=== PATIENT | male | born 1945 | race Caucasian/White ===

== ENCOUNTER 2019-01-03 12:34 | Outpatient (CLI) | payer MEDICARE, BC ==
[2019-01-03 13:28] LABS: #Basophils 0.1 thou/uL (0.0-0.2); #Eosinphils 0.5 thou/uL (0.0-0.7); #Lymphocytes 2.2 thou/uL (1.20-3.40); #Monocytes 0.6 thou/uL (0.11-0.59); #Neutrophils 5.2 thou/uL (1.40-6.50); %Basophils 0.7 % (0.0-1.0); %Eosinophils 6.3 % (0.0-10.0); %Lymphocytes 25.4 % (21.0-51.0); %Monocytes 7.4 % (0.0-10.0); %Neutrophils 60.2 % (42.0-75.0); Hemoglobin 14.7 g/dL (14.0-18.0); Mean Corpuscular HGB CONC 33.6 g/dL (32.0-36.0); Mean Corpuscular Hemoglobin 30.6 pg (27.0-31.0); Mean Corpuscular Volume 91.1 fL (78.0-98.0); Mean Platelet Volume 6.5 fL (7.4-10.4); Platelet Count 378 thou/uL (130-400); RBC Distribution Width 12.3 % (11.5-14.5); White Blood Cell (WBC) Count 8.6 thou/uL (4.8-10.8)
[2019-01-03 13:51] LABS: ALT (SGPT) 20 U/L (8-55); AST (SGOT) 18 U/L (5-34); Albumin 4.2 g/dL (3.4-4.8); Alkaline Phosphatase 86 U/L (40-150); Anion Gap 11 mmol/L (10-20); BUN (Urea Nitrogen) 15 mg/dL (8.4-25.7); Bilirubin, Total 0.6 mg/dL (0.2-1.2); Calc. Creatinine Clearance 0 mL/min (70-130); Calcium 9.7 mg/dL (7.8-10.44); Carbon Dioxide 27 mmol/L (23-31); Cardiac Risk 3.6 (Less than 4.5); Chloride 104 mmol/L (98-107); Cholesterol 132 mg/dl (< 200 Desired); Estimated GFR-MDRD 88; Globulin 3.2 g/dL (2.4-3.5); Glucose 98 mg/dL (83-110); HDL Cholesterol 37 mg/dL (>60 Neg Risk); LDL Cholesterol, Calculated 76 mg/dL; Potassium 4.1 mmol/L (3.5-5.1); Protein, Total 7.4 g/dL (5.8-8.1); Sodium 138 mmol/L (136-145); Triglycerides 94 mg/dL (Less than 150)
--- NOTE | 2019-01-03 14:13 | RAD ---
EXAM: Chest PA and lateral: HISTORY: CCL COMPARISON: none FINDINGS: Lung dumont are clear. Vascular markings are normal. Heart and mediastinum appear unremarkable. Vascularity is normal. Osseous structures are unremarkable. IMPRESSION: Unremarkable chest
--- NOTE | 2019-01-08 14:52 | EKG ---
Test Reason : Blood Pressure : / mmHG Vent. Rate : 057 BPM Atrial Rate : 057 BPM P-R Int : 162 ms QRS Dur : 086 ms QT Int : 402 ms P-R-T Axes : 046 041 030 degrees QTc Int : 391 ms Sinus bradycardia Possible Anterior infarct (cited on or before 16-MAR-2009) Abnormal ECG Confirmed by SEBASTIÁN BARON ([id number]) on 01/08/2019 2:52:18 PM Referred By: SEAMUS Confirmed By:SEBASTIÁN BARON
== END 2019-01-03 12:35 | disposition home or self-care (01) ==
LOC: LABBT 12:34
PROVIDERS: ATTEND Internal Medicine Cardiovascular Disease
DX: Z01.818 Encounter for other preprocedural examination (principal)
CPT/HCPCS: 71046; 80053; 80061; 85025; 93005; 93010

== ENCOUNTER 2019-01-09 05:58 | Observation (INO) | payer MEDICARE, BC ==
[2019-01-03 13:32] VITALS: BMI 36.8
[2019-01-09] MEDS ORDERED: Heparin 10,000 UNITS/1 ML VIAL ONE (06:28)
[2019-01-09] MEDS ORDERED: Fentanyl 100 MCG/2 ML VIAL ONE (07:03)
[2019-01-09] MEDS ORDERED: Midazolam HCl 2 mg/2 ml Vial ONE (07:03)
[2019-01-09] MEDS ORDERED: Bivalirudin 250 MG VIAL ONE (07:20)
[2019-01-09] MEDS ORDERED: Nitroglycerin 100MG/250ML BOT 250 ML ONE (07:20)
[2019-01-09] MEDS ORDERED: Clopidogrel Bisulfate 300 MG TAB ONE (07:58)
[2019-01-09] MEDS ORDERED: hydrALAZINE 20 MG/ML VIAL ONE (08:05)
[2019-01-09] MEDS ORDERED: Morphine 2 MG/ML SYRINGE SLOW IVP PRN (08:12)
[2019-01-09] MEDS ORDERED: Morphine 4 MG/ML VIAL SLOW IVP PRN (08:12)
[2019-01-09] MEDS ORDERED: Nitroglycerin 0.4 MG TAB (25 Tab Bottle) SL PRN (08:12)
[2019-01-09] MEDS ORDERED: Lorazepam 1 MG TAB PO PRN (08:14)
[2019-01-09] MEDS ORDERED: Sodium Chloride 0.9% 1,000 ML IV SCH (08:15)
[2019-01-09] MEDS ORDERED: Iopamidol 370 76% 100 ML VIAL ONE (09:52)
[2019-01-09] MEDS ORDERED: Iopamidol 370 76% 50 ML VIAL FS ONE (09:52)
[2019-01-09] MEDS: Aspirin Chewable 81 MG TAB PO SCH (14:27)
--- NOTE | 2019-01-09 19:08 | EKG ---
Test Reason : POST STENT - LAD Blood Pressure : / mmHG Vent. Rate : 057 BPM Atrial Rate : 057 BPM P-R Int : 172 ms QRS Dur : 096 ms QT Int : 412 ms P-R-T Axes : 045 046 053 degrees QTc Int : 401 ms Sinus bradycardia Nonspecific T wave abnormality Abnormal ECG When compared with ECG of 03-JAN-2019 13:12, Borderline criteria for Anterior infarct are no longer Present Nonspecific T wave abnormality now evident in Lateral leads Confirmed by DR. Marti COTA ([id number]) on 01/09/2019 7:08:25 PM Referred By: SEAMUS Confirmed By:DR. Marti COTA
[2019-01-09] MEDS ORDERED: Atorvastatin Calcium 40 MG TAB PO SCH (21:00)
[2019-01-10 06:11] LABS: #Eosinphils 0.6 thou/uL (0.0-0.7); #Lymphocytes 2.4 thou/uL (1.20-3.40); #Monocytes 0.8 thou/uL (0.11-0.59); %Basophils 0.4 % (0.0-1.0); %Eosinophils 6.3 % (0.0-10.0); %Lymphocytes 23.8 % (21.0-51.0); %Monocytes 8.2 % (0.0-10.0); %Neutrophils 61.2 % (42.0-75.0); Hemoglobin 14.6 g/dL (14.0-18.0); Mean Corpuscular HGB CONC 33.8 g/dL (32.0-36.0); Mean Corpuscular Hemoglobin 30.7 pg (27.0-31.0); Mean Corpuscular Volume 90.8 fL (78.0-98.0); Mean Platelet Volume 6.3 fL (7.4-10.4); Platelet Count 364 thou/uL (130-400); RBC Distribution Width 12.4 % (11.5-14.5); Red Blood Cell (RBC) Count 4.77 mill/uL (4.70-6.10); White Blood Cell (WBC) Count 9.9 thou/uL (4.8-10.8)
[2019-01-10 06:23] LABS: ALT (SGPT) 20 U/L (8-55); AST (SGOT) 20 U/L (5-34); Alkaline Phosphatase 89 U/L (40-150); Anion Gap 12 mmol/L (10-20); BUN (Urea Nitrogen) 14 mg/dL (8.4-25.7); Bilirubin, Total 0.7 mg/dL (0.2-1.2); Calc. Creatinine Clearance 114 mL/min (70-130); Calcium 9.4 mg/dL (7.8-10.44); Carbon Dioxide 26 mmol/L (23-31); Chloride 104 mmol/L (98-107); Estimated GFR-MDRD 81; Glucose 90 mg/dL (83-110); Potassium 4.2 mmol/L (3.5-5.1); Sodium 138 mmol/L (136-145)
[2019-01-10 08:20] VITALS: BP 173/81; TEMP 97.3
[2019-01-10] MEDS: Aspirin Chewable 81 MG TAB PO SCH (08:33)
[2019-01-10] MEDS ORDERED: Clopidogrel Bisulfate 75 MG TAB PO SCH (09:00)
[2019-01-10] MEDS ORDERED: Lisinopril 10 MG TAB PO SCH (09:00)
--- NOTE | 2019-01-11 10:00 | EKG ---
Test Reason : Blood Pressure : / mmHG Vent. Rate : 057 BPM Atrial Rate : 057 BPM P-R Int : 164 ms QRS Dur : 098 ms QT Int : 430 ms P-R-T Axes : 048 045 067 degrees QTc Int : 418 ms Sinus bradycardia Otherwise normal ECG When compared with ECG of 09-JAN-2019 08:32, No significant change was found Confirmed by DR. Marti CTOA ([id number]) on 01/11/2019 10:00:36 AM Referred By: SEAMUS Confirmed By:DR. Marti COTA
--- NOTE | 2019-01-13 10:14 | DIS ---
DATE OF ADMISSION: 01/09/2019 DATE OF DISCHARGE: 01/10/2019 DISCHARGE DIAGNOSES: 1. One Vessel coronary artery disease (left anterior descending artery). 2. Drug-eluting stent placement in the mid left anterior descending artery. 3. Hypercholesterolemia. 4. Hypertension. 5. Positive family history. DISCHARGE DISPOSITION: The patient will see Dr. Brown in 2 to 3 weeks for followup of his hypertension. He will see Dr. Encarnacion in 3 months for followup with comprehensive metabolic panel, fasting lipid profile. DISCHARGE MEDICATIONS: 1. Aspirin 81 mg daily. 2. Plavix 75 mg daily x1 year (discussed the importance of this with the patient ). 3. Atorvastatin 40 mg at bedtime. 4. Lisinopril 10 mg q.a.m. 5. Metoprolol 50 mg q.a.m. 6. Lorazepam 1 mg q.12 hours p.r.n. 7. Sertraline 100 mg at bedtime. HOSPITAL COURSE: Dr. Gardiner had an office cardiac PET scan, which revealed distal inferior and apical ischemia. 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 He underwent cardiac catheterization. There was normal left ventricular function with ejection fraction of 50% to 55%. There was a 20% proximal LAD and a 90% mid LAD, but otherwise no significant stenosis. He underwent placement of Synergy 3.5 x 16 mm stent in the mid LAD post dilated with a 4.0 mm balloon in the mid portion of the stent with excellent result. This was a drug-eluting stent. He was observed overnight and then discharged. His LDL had fallen from 140 to 76. He has been on the atorvastatin for 3 weeks. We discussed further dietary indiscretions, and hopefully, the LDL will fall below 70. He was observed overnight and his blood pressure systolics were all in the 160s to 170s. He did have a heart rate of 49 per minute during the night and so metoprolol was not further increased, instead lisinopril 10 mg daily was added. He should follow up with Dr. Brown in 2 to 3 weeks for further adjustments in his blood pressure medication. He will keep a blood pressure log at home and take that to the appointment with Dr. Brown. Job ID: [id number] [facility]
== END 2019-01-10 12:31 | disposition home or self-care (01) ==
LOC: CCL 05:58 → 2SW 08:30
PROVIDERS: ADMIT Internal Medicine Cardiovascular Disease; ATTEND Internal Medicine Cardiovascular Disease
PROC: 027034Z Dilation of Coronary Artery, One Artery with Drug-eluting Intraluminal Device, Percutaneous Approach (ICD-10-PCS; principal; 2019-01-09)
PROC: 4A023N7 Measurement of Cardiac Sampling and Pressure, Left Heart, Percutaneous Approach (ICD-10-PCS; 2019-01-09)
PROC: B2111ZZ Fluoroscopy of Multiple Coronary Arteries using Low Osmolar Contrast (ICD-10-PCS; 2019-01-09)
DX: I25.10 Atherosclerotic heart disease of native coronary artery without angina pectoris (principal); E78.00 Pure hypercholesterolemia, unspecified; I10 Essential (primary) hypertension; Z87.891 Personal history of nicotine dependence; Z79.82 Long term (current) use of aspirin; Z79.899 Other long term (current) drug therapy; Z88.0 Allergy status to penicillin
CPT/HCPCS: 80053; 85025; 85347 ×2; 93005 ×2; 93458; 93798; C1725; C1769 ×2; C1874; C1887; C9600; G0378; 36415; 92928; 93010; 99152; 99153; J0360; J0583; J1644; J2250; J3010; Q9967

== ENCOUNTER 2019-04-23 12:56 | Outpatient (CLI) | payer MEDICARE, BC ==
[~2019-04-23 12:56] MED LIST: Gadobenate Dimeglumine 529 MG/1 ML (20ML VIAL) ONE
[2019-04-23 14:01] LABS: Estimated GFR-MDRD - POC Greater than 90
--- NOTE | 2019-04-25 08:43 | MRI ---
MR OF THE PELVIS WITH AND WITHOUT CONTRAST INDICATION: Elevated PSA COMPARISON: None TECHNIQUE: Multiplanar, multisequence MR images were obtained of the pelvis with and without IV contr ast. 20 cc of MultiHance was utilized for the examination. The examination was reviewed on a separate OneMore[employer]let 3-D workstation for multiplanar metric evaluation. FINDINGS: Prostate size: The prostate measured 4.9 x 4.0 x 4.1cm. 40.11 cc. Peripheral zone: Susceptibility artifact from bilateral total hip prosthesis heavily limits the diffu alexis-weighted images giving it a PIRADS category X. The peripheral zone is better detailed on the T2-weighted images. There is a large 3.5 cm T2 hypointense, T1 isointense mass involving the base, mi d and apex of the right prostate gland that extends into the right posterolateral aspect of the central zone suspicious for a malignancy. There is irregularity involving the lateral and posterolate ral aspect of the prostatic capsule suspicious for extracapsular spread. Central zone: Heterogeneous in appearance. Neural vasculature: There is suspicion for right-sided neurovascular invasion due to the large right prostatic mass. Regional lymphadenopathy: None Dynamic contrast enhancement: The large lesion involving the right aspect of the prostate does demons trate abnormal dynamic contrast enhancement. Osseous structures: No suspicious osseous lesion is identified. Additional findings: Bilateral total hip prostheses produce significant susceptibility artifact limit ing the exam.. IMPRESSION: 1. PIRADS 5- Very High (clinically significant cancer is highly likely to be present.) 2. There is a large 3.5 cm T2 hypointense, T1 isointense, abnormally enhancing mass involving the rig ht prostate gland from base to apex with irregularity of the right prostatic capsule and suspicion for right-sided neurovascular invasion. 3. Limitations to the exam due to bilateral total hip prosthesis inducing significant magnetic suscep tibility artifact. This heavily limits the DWI evaluation. Transcribed Date/Time: 04/25/2019 8:51 AM
== END 2019-04-23 12:57 | disposition home or self-care (01) ==
LOC: TBSIIMAG 12:56
PROVIDERS: ATTEND Urology
DX: R97.20 Elevated prostate specific antigen [PSA] (principal); N42.9 Disorder of prostate, unspecified; Z96.643 Presence of artificial hip joint, bilateral
CPT/HCPCS: 72197; 82565; A9577

== ENCOUNTER 2019-11-06 13:53 | Observation (INO) | payer MEDICARE, BC ==
[2019-11-06 14:58] LABS: #Eosinphils 0.5 thou/uL (0.0-0.7); #Lymphocytes 1.8 thou/uL (1.20-3.40); #Monocytes 0.9 thou/uL (0.11-0.59); #Neutrophils 4.5 thou/uL (1.40-6.50); %Basophils 0.4 % (0.0-1.0); %Eosinophils 6.7 % (0.0-10.0); %Lymphocytes 22.6 % (21.0-51.0); %Monocytes 12.1 % (0.0-10.0); %Neutrophils 58.2 % (42.0-75.0); Hemoglobin 8.7 g/dL (14.0-18.0); Mean Corpuscular HGB CONC 33.4 g/dL (32.0-36.0); Mean Corpuscular Hemoglobin 31.2 pg (27.0-31.0); Mean Corpuscular Volume 93.4 fL (78.0-98.0); Mean Platelet Volume 5.9 fL (7.4-10.4); Platelet Count 408 thou/uL (130-400); RBC Distribution Width 13.9 % (11.5-14.5); Red Blood Cell (RBC) Count 2.79 mill/uL (4.70-6.10); White Blood Cell (WBC) Count 7.8 thou/uL (4.8-10.8)
[2019-11-06 15:01] LABS: Bilirubin Negative (Negative); Blood, Urine 1+ (Negative); Clarity Turbid (Clear); Glucose, Urine (Dipstick) Normal (Negative); Leukocyte 500 Leu/uL (Negative); Nitrite Negative (Negative); Protein, Urine (Dipstick) 50 mg/dL (Neg-Trace); Squamous Epithelial None Seen HPF (0-3); Urobilinogen Normal mg/dL (Less than 2); WBC/HPF Greater than 50 HPF (0-3)
[2019-11-06 15:09] LABS: Bacteria/HPF 4+ HPF (None Seen); Yeast-Budding None Seen HPF (None Seen)
[2019-11-06 15:29] LABS: ALT (SGPT) 11 U/L (8-55); AST (SGOT) 15 U/L (5-34); Albumin 3.3 g/dL (3.4-4.8); Alkaline Phosphatase 86 U/L (40-110); Anion Gap 9 mmol/L (10-20); BUN (Urea Nitrogen) 37 mg/dL (8.4-25.7); Bilirubin, Total 0.3 mg/dL (0.2-1.2); Calc. Creatinine Clearance 0 mL/min (70-130); Calcium 8.9 mg/dL (7.8-10.44); Carbon Dioxide 27 mmol/L (23-31); Chloride 110 mmol/L (98-107); Estimated GFR-MDRD 68; Globulin 2.7 g/dL (2.4-3.5); Glucose 99 mg/dL (83-110); Potassium 4.6 mmol/L (3.5-5.1); Sodium 141 mmol/L (136-145)
[2019-11-06] MEDS ORDERED: Acetaminophen 325 MG TAB PO PRN (18:29)
[2019-11-06] MEDS ORDERED: Acetaminophen 650 MG Suppository PR PRN (18:29)
--- NOTE | 2019-11-06 18:40 | PDOC.HHP ---
Hospitalist HPI - History of Present Illness Right nephrostomy tube leaking History of Present Illness: Patient states he was referred by Dr. Melara due to leaking around the right nephrostomy tube. He is due to have his tubes internalized 11/18/2019. Per patient he was advised admission overnight with plans to exchange the tubes tomorrow by IR. He denies any trauma or injury. No pain surrounding the tube. Denies any recent fever, chills or sweats. Overall he feels well and denies any other complaints. Of note, he was recently admitted with GI Bleed. He had an EGD with cauterization of a bleeding gastric ulcer. No further issues with melena since then. Labs repeated in the ED today show a stable Hgb of 8.7. Hospitalist ROS - Review of Systems Constitutional: denies: fever, chills, sweats, weakness, malaise, other Eyes: denies: pain, vision change, conjunctivae inflammation, eyelid inflammation, redness, other ENT: denies: ear pain, ear discharge, nose pain, nose discharge, nose congestion , mouth pain, mouth swelling, throat pain, throat swelling, other Respiratory: denies: cough, dry, shortness of breath, hemoptysis, SOB with excertion, pleuritic pain, sputum, wheezing, other Cardiovascular: denies: chest pain, palpitations, orthopnea, paroxysmal noc. dyspnea, edema, light headedness, other Gastrointestinal: denies: nausea, vomiting, abdominal pain, diarrhea, constipation, melena, hematochezia, other Genitourinary: reports: other (leaking around right nephrostomy tube). denies: dysuria, frequency, incontinence, hematuria, retention Musculoskeletal: denies: neck pain, shoulder pain, arm pain, back pain, hand pain, leg pain, foot pain, other Skin: denies: rash, lesions, kye, bruising, other Neurological: denies: weakness, numbness, incoordination, change in speech, confusion, seizures, other - Medication Medications: ALLERGIES: Penicillin CURRENT MEDICATIONS: Flomax [facility] Nov 06, 2019 14:21 GUILLERMINA Bland Sarah capsule : Strength - 0.4 mg : ORAL Patient Dose: Unknown. lisinopril SunNov 06, 2019 14:22 GUILLERMINA Bland Sarah tablet : Strength - 20 mg : ORAL Patient Dose: Unknown. metoprolol succinate [facility] Nov 06, 2019 14:24 GUILLERMINA Bland Sarah tablet extended release 24 hr : Strength - 50 mg : ORAL Patient Dose: Unknown. Zoloft [facility] Nov 06, 2019 14:24 GUILLERMINA Bland Sarah tablet : Strength - 100 mg : ORAL Patient Dose: Unknown. aspirin oral [facility] Nov 06, 2019 14:25 GUILLERMINA Bland Sarah tablet : Strength - 81 mg : ORAL Patient Dose: Unknown. clopidogrel [facility] Nov 06, 2019 14:25 GUILLERMINA Bland Yolanda tablet : Strength - 75 mg : ORAL Patient Dose: Unknown. Protonix oral [facility] Nov 06, 2019 14:26 GUILLERMINA Bland Sarah tablet,delayed release (DR/EC) : Strength - 20 mg : ORAL Patient Dose: Unknown. Iron (ferrous sulfate) [facility] Nov 06, 2019 14:26 GUILLERMINA Bland Yolanda tablet : Strength - 325 mg (65 mg iron) : ORAL Patient Dose: Unknown. Hospitalist History - Past Medical History Cardiac: reports: CAD Gastrointestinal: reports: GI bleed, Other (Gastric ulcer) Heme/Onc: reports: Cancer (Prostate) Psych: reports: Depression Renal/: reports: Chronic renal failure - Past Surgical History Other Surgical History: Bilateral nephrostomy tubes Cardiac stents - Family History Family History: reports: no pertinent history - Social History Smoking Status: Former smoker Alcohol: reports: Occassional Drugs: reports: none Living Situation: With Family Activity level: independent ambulation - Exam General Appearance: NAD, awake alert Eye: PERRL, anicteric sclera ENT: normocephalic atraumatic, no oropharyngeal lesions, moist mucosa Neck: supple Heart: RRR, no murmur Respiratory: CTAB, no wheezes, no rales, no ronchi, normal chest expansion Gastrointestinal: soft, non-tender, non-distended, normal bowel sounds, no guarding, no rigidity Gastrointestinal - other findings: Right nephrostomy tube w/leaking, no redness/ swelling/discharge/bleeding Extremities: no edema Skin: normal turgor, no lesions, no rashes Neurological: cranial nerve grossly intact, normal sensation to touch, no weakness Musculoskeletal: normal tone, normal strength, no muscle wasting Psychiatric: normal affect, normal behavior, A&O x 3 Hospitalist Results - Labs Result Diagrams: 11/06/19 14:50 11/06/19 14:50 Lab results: WBC 7.8 thou/uL (4.8-10.8) 11/06/19 14:50 Hgb 8.7 g/dL (14.0-18.0) L 11/06/19 14:50 Hct 26.0 % (42.0-52.0) L 11/06/19 14:50 MCV 93.4 fL (78.0-98.0) 11/06/19 14:50 Plt Count 408 thou/uL (130-400) H 11/06/19 14:50 Neutrophils % 58.2 % (42.0-75.0) 11/06/19 14:50 Sodium 141 mmol/L (136-145) 11/06/19 14:50 Potassium 4.6 mmol/L (3.5-5.1) 11/06/19 14:50 Chloride 110 mmol/L (98-107) H 11/06/19 14:50 Carbon Dioxide 27 mmol/L (23-31) 11/06/19 14:50 BUN 37 mg/dL (8.4-25.7) H 11/06/19 14:50 Creatinine 1.07 mg/dL (0.7-1.3) 11/06/19 14:50 Glucose 99 mg/dL (83-110) 11/06/19 14:50 Calcium 8.9 mg/dL (7.8-10.44) 11/06/19 14:50 Total Bilirubin 0.3 mg/dL (0.2-1.2) 11/06/19 14:50 AST 15 U/L (5-34) 11/06/19 14:50 ALT 11 U/L (8-55) 11/06/19 14:50 Alkaline Phosphatase 86 U/L (40-110) 11/06/19 14:50 Serum Total Protein 6.0 g/dL (5.8-8.1) 11/06/19 14:50 Albumin 3.3 g/dL (3.4-4.8) L 11/06/19 14:50 Urine Ketones Negative mg/dL (Negative) 11/06/19 14:44 Urine Blood 1+ (Negative) A 11/06/19 14:44 Urine Nitrite Negative (Negative) 11/06/19 14:44 Ur Leukocyte Esterase 500 Justin/uL (Negative) A 11/06/19 14:44 Urine RBC 11-20 HPF (0-3) A 11/06/19 14:44 Urine WBC Greater than 50 HPF (0-3) A 11/06/19 14:44 Ur Squamous Epith Cells None Seen HPF (0-3) 11/06/19 14:44 Urine Bacteria 4+ HPF (None Seen) A 11/06/19 14:44 Hospitalist H&P A/P - Problem (1) Malfunction of nephrostomy tube Code(s): T83.098A - [facility] COMPL OF OTHER URINARY CATHETER, INITIAL ENCOUNTER Status: Acute (2) Chronic renal failure Status: Chronic (3) Anemia Code(s): D64.9 - ANEMIA, UNSPECIFIED Status: Chronic (4) History of prostate cancer Code(s): Z85.46 - PERSONAL HISTORY OF MALIGNANT NEOPLASM OF PROSTATE Status: Chronic (5) History of heart artery stent Code(s): Z95.5 - PRESENCE OF CORONARY ANGIOPLASTY IMPLANT AND GRAFT Status: Chronic (6) CAD (coronary artery disease) Code(s): I25.10 - ATHSCL HEART DISEASE OF [place] CORONARY ARTERY W/O ANG PCTRS Status: Chronic - Plan Plan: Urology consult: Dr. Melara. Baseline EKG Repeat labs in AM including coags UA/UCx Reconcile home meds once verified. NPO at midnight.
[2019-11-06] MEDS ORDERED: Sodium Chloride 0.9% 1,000 ML IV SCH ×2 (19:15→23:37)
[2019-11-06 22:22] VITALS: BMI 30.9
[2019-11-07 06:14] LABS: #Eosinphils 0.6 thou/uL (0.0-0.7); #Lymphocytes 1.9 thou/uL (1.20-3.40); #Monocytes 0.9 thou/uL (0.11-0.59); #Neutrophils 6.3 thou/uL (1.40-6.50); %Basophils 0.4 % (0.0-1.0); %Eosinophils 6.4 % (0.0-10.0); %Lymphocytes 19.5 % (21.0-51.0); %Monocytes 8.9 % (0.0-10.0); %Neutrophils 64.8 % (42.0-75.0); Hemoglobin 10.4 g/dL (14.0-18.0); Mean Corpuscular HGB CONC 32.9 g/dL (32.0-36.0); Mean Corpuscular Hemoglobin 30.9 pg (27.0-31.0); Mean Corpuscular Volume 93.9 fL (78.0-98.0); Mean Platelet Volume 6.2 fL (7.4-10.4); Platelet Count 451 thou/uL (130-400); Red Blood Cell (RBC) Count 3.37 mill/uL (4.70-6.10); White Blood Cell (WBC) Count 9.6 thou/uL (4.8-10.8)
[2019-11-07 06:17] LABS: PTT 28.2 SEC (22.9-36.1); Prothrombin Time 13.5 SEC (12.0-14.7)
[2019-11-07 06:26] LABS: Anion Gap 12 mmol/L (10-20); BUN (Urea Nitrogen) 28 mg/dL (8.4-25.7); Calc. Creatinine Clearance 86 mL/min (70-130); Calcium 9.5 mg/dL (7.8-10.44); Carbon Dioxide 26 mmol/L (23-31); Chloride 110 mmol/L (98-107); Estimated GFR-MDRD 73; Glucose 97 mg/dL (83-110); Sodium 144 mmol/L (136-145)
[2019-11-07] MEDS ORDERED: Midazolam HCl 2 mg/2 ml Vial ONE (10:29)
[2019-11-07] MEDS ORDERED: Fentanyl 100 MCG/2 ML VIAL ONE (10:29)
[2019-11-07] MEDS ORDERED: Sodium Chloride 0.9% 10 ML ONE (10:29)
--- NOTE | 2019-11-07 10:31 | PDOC.HOSPP ---
- Subjective Encounter Date: 11/07/19 Encounter Time: 10:25 Subjective: Patient seen and examined. No new complaints. No overnight events - Objective Vital Signs & Weight: Vital Signs (12 hours) Temp Pulse Resp BP BP Pulse Ox 11/07/19 07:04 98.2 F 96 18 170/84 H 98 11/07/19 04:12 98 F 64 18 173/78 H 96 Weight Weight 203 lb 0.732 oz I&O: 11/06/19 11/07/19 11/08/19 06:59 06:59 06:59 Intake Total 650 Output Total 1630 Balance -980 Result Diagrams: 11/07/19 05:54 11/07/19 05:54 Hospitalist ROS - Review of Systems ENT: denies: ear pain, ear discharge, nose pain, nose discharge, nose congestion , mouth pain, mouth swelling, throat pain, throat swelling, other Respiratory: denies: cough, dry, shortness of breath, hemoptysis, SOB with excertion, pleuritic pain, sputum, wheezing, other Cardiovascular: denies: chest pain, palpitations, orthopnea, paroxysmal noc. dyspnea, edema, light headedness, other Gastrointestinal: denies: nausea, vomiting, abdominal pain, diarrhea, constipation, melena, hematochezia, other Genitourinary: denies: dysuria, frequency, incontinence, hematuria, retention, other Musculoskeletal: denies: neck pain, shoulder pain, arm pain, back pain, hand pain, leg pain, foot pain, other - Exam General Appearance: NAD, awake alert Eye: PERRL, anicteric sclera ENT: normocephalic atraumatic, no oropharyngeal lesions Neck: supple, symmetric, no JVD, no thyromegaly Heart: RRR, no murmur, no gallops Respiratory: CTAB, no wheezes, no rales Gastrointestinal: soft, non-tender, non-distended Gastrointestinal - other findings: nephrostomy tube in place Extremities: no cyanosis, no clubbing Skin: normal turgor, no lesions Neurological: no focal deficits Musculoskeletal: normal tone, normal strength Psychiatric: normal affect, normal behavior Hosp A/P (1) Malfunction of nephrostomy tube Code(s): T83.098A - [facility] COMPL OF OTHER URINARY CATHETER, INITIAL ENCOUNTER Status: Acute (2) Anemia Code(s): D64.9 - ANEMIA, UNSPECIFIED Status: Chronic (3) CAD (coronary artery disease) Code(s): I25.10 - ATHSCL HEART DISEASE OF [place] CORONARY ARTERY W/O ANG PCTRS Status: Chronic (4) Chronic renal failure Status: Chronic (5) History of heart artery stent Code(s): Z95.5 - PRESENCE OF CORONARY ANGIOPLASTY IMPLANT AND GRAFT Status: Chronic (6) History of prostate cancer Code(s): Z85.46 - PERSONAL HISTORY OF MALIGNANT NEOPLASM OF PROSTATE Status: Chronic - Plan old records reviewed/req nephrostomy tube exchange bilateral today urology to see medication reviewed follow culture home medication reconciled
[2019-11-07 11:47] VITALS: TEMP 97.6
--- NOTE | 2019-11-07 14:49 | DIS ---
DATE OF ADMISSION: 11/06/2019 DATE OF DISCHARGE: 11/07/2019 PRIMARY CARE PHYSICIAN: Ian Brown MD DISCHARGE DISPOSITION: Home. PRIMARY DISCHARGE DIAGNOSIS: Status post bilateral nephrostomy tube exchange. SECONDARY DISCHARGE DIAGNOSIS: Coronary artery disease, chronic disease anemia, history of prostate cancer, hypertension, anxiety and depression, benign enlargement of prostate, gastroesophageal reflux disease, and dyslipidemia. PRIMARY PROCEDURE/OPERATION: Nephrostomy tube exchange. RADIOLOGICAL INVESTIGATION: None. SIGNIFICANT LABORATORY DATA: WBC 9.6, hemoglobin 10.4, platelet 451. INR 1.0. Sodium 144, potassium 4.0, creatinine 1.01. LFT, normal. Urinalysis, suggestive of UTI. Urine culture grew E. coli. DISCHARGE MEDICATIONS: 1. Ferrous sulfate 325 mg p.o. daily. 2. Lisinopril 20 mg daily. 3. Lorazepam 1 tablet p.o. as directed. 4. Protonix 40 mg daily. 5. Flomax 0.4 mg daily. 6. Cipro 500 mg p.o. b.i.d. for 7 days. 7. Aspirin 81 mg daily. 8. Lipitor 40 mg p.o. at bedtime. 9. Plavix 75 mg daily. 10. Toprol-XL 50 mg p.o. daily. 11. Zoloft 100 mg p.o. at bedtime. CONTRAINDICATION: None. CODE STATUS: Full code. INPATIENT HULL AND DECK REMOVER: Dr. Melara, Urology. TEST RESULTS PENDING ON DISCHARGE: None. ALLERGIES: PENICILLIN. DISCHARGE PLAN: Posthospital, the patient will follow up with primary care physician and Dr. Melara as instructed. HOSPITAL COURSE: A 74-year-old male with above-mentioned medical problem, who was admitted by Anita Romero. Please see her H and P for further details. The patient was referred to ER for nephrostomy tube exchange. The patient was completely asymptomatic. His urinalysis was consistent with UTI, and that is why we sent urine culture, and it was growing E. coli, and that is why we prescribed Cipro upon discharge. The patient had IR-guided nephrostomy tube exchange. The patient was doing well. The patient was continued with his home medications while in hospital, and he will continue similar medications upon discharge, and he will follow up with Urology and primary care physician. The patient was seen and examined at bedside today. Currently, the patient is medically stable for discharge today. Job ID: [id number]
--- NOTE | 2019-11-07 14:50 | SPC ---
Fluoroscopic guided right percutaneous nephrostogram and catheter exchange HISTORY: Prostate cancer. Ureteral obstruction. Leaking of right percutaneous nephrostomy catheter. FINDINGS: After explaining the procedure and answering all questions, small amount of contrast was ca refully injected through the indwelling right percutaneous nephrostomy catheter. The distal coil lie within the periphery of a nondilated calyx at the lateral inferior aspect of the right kidney. Th ere was opacification of a nondilated right renal collecting system and ureter. Contrast was eventually seen to pass into the urinary bladder. The external portion of the right PCN was prepped and draped in usual sterile fashion. Catheter was l igated and a 0.035 Amplatz wire was used to hold position. Catheter was exchanged for a new 8 Croatian locking loop nephrostomy catheter, with the coil placed in the renal pelvis. Catheter was flus hed and secured externally with local anesthesia and 2-0 Ethilon suture. The indwelling left percutaneous nephrostomy drain was also carefully opacified with contrast, showin g the catheter to be in good position. Contrast extended through the distal ureter into the urinary bladder. Patient tolerated the procedure well and was returned in improved condition. Fluoroscopy time 2.2 min utes. IMPRESSION: Technically successful fluoroscopically guided exchange of a right percutaneous nephrosto my catheter, in good position. Contrast injections showed each ureter to be patent.
[2019-11-07 14:55] VITALS: BP 184/75
[2019-11-07] MEDS ORDERED: Lisinopril 20 MG TAB PO SCH (15:00)
[2019-11-07] MEDS ORDERED: Atorvastatin Calcium 40 MG TAB PO SCH (21:00)
[2019-11-08] MEDS ORDERED: Tamsulosin HCl 0.4 MG CAP PO SCH (09:00)
[2019-11-08] MEDS ORDERED: Clopidogrel Bisulfate 75 MG TAB PO SCH (09:00)
[2019-11-08] MEDS ORDERED: Aspirin Chewable 81 MG TAB PO SCH (09:00)
[2019-11-08] MEDS ORDERED: Lisinopril 20 MG TAB PO SCH (09:00)
[2019-11-08] MEDS ORDERED: Ferrous Sulfate 325 MG TAB PO SCH (09:00)
[2019-11-08] MEDS ORDERED: Lisinopril 10 MG TAB PO SCH (09:00)
== END 2019-11-07 15:35 | disposition home or self-care (01) ==
LOC: ERS 13:53 → ERHOLD 17:32 → T4-B 19:45
PROVIDERS: ADMIT Emergency Medicine; ATTEND Emergency Medicine
PROC: BT111ZZ Fluoroscopy of Right Kidney using Low Osmolar Contrast (ICD-10-PCS; principal; 2019-11-07)
PROC: 0T25X0Z Change Drainage Device in Kidney, External Approach (ICD-10-PCS; 2019-11-07)
DX: N99.528 Other complication of incontinent external stoma of urinary tract (principal); I25.10 Atherosclerotic heart disease of native coronary artery without angina pectoris; F32.9 Major depressive disorder, single episode, unspecified; N18.9 Chronic kidney disease, unspecified; D63.1 Anemia in chronic kidney disease; F41.9 Anxiety disorder, unspecified; E78.00 Pure hypercholesterolemia, unspecified; K21.9 Gastro-esophageal reflux disease without esophagitis; E78.5 Hyperlipidemia, unspecified; N40.0 Benign prostatic hyperplasia without lower urinary tract symptoms; Z85.46 Personal history of malignant neoplasm of prostate; Z87.891 Personal history of nicotine dependence; Z79.82 Long term (current) use of aspirin; Z79.02 Long term (current) use of antithrombotics/antiplatelets; Z79.899 Other long term (current) drug therapy; Z88.0 Allergy status to penicillin; Z95.5 Presence of coronary angioplasty implant and graft
CPT/HCPCS: 50431; 50436; 75984; 80048; 80053; 85025 ×2; 85610; 85730; 87077; 87086; 87186; 96360; 96361 ×2; 99284; C1729; G0378 ×3; 36415; 81003; 81015; J2250; J3010

== ENCOUNTER 2019-11-18 06:55 | Day surgery (SDC) | payer MEDICARE, BC ==
[2019-11-17 16:06] VITALS: BMI 31.1
[2019-11-18 08:04] VITALS: BP 153/80; TEMP 98.5
--- NOTE | 2019-11-18 11:26 | SPC ---
PROCEDURE: Bilateral nephrostograms Bilateral ureteral stent placement PROVIDED CLINICAL HISTORY: Prostate cancer with distal ureteral obstruction and bilateral hydronephrosis. Patient currently has indwelling bilateral nephrostomy tubes. Placement of bilateral ureteral stents and removal of the nephrostomy tubes was requested. COMPARISON: None Fluoroscopy: Time-8.4 minutes Dose-97,046 mGy centimeter squared TECHNIQUE: The procedure including the risks and complications were explained to the patient, and informed conse nt was obtained. Patient was placed on the angiography table in the prone position. The bilateral indwelling nephrostomy tubes and surrounding areas were meticulously prepped and draped in usual ster ile fashion. A right nephrostogram was performed. The right nephrostomy tube was cut and exchanged over a 0.035 in ch Amplatz guidewire for a 5 [place] Berenstein catheter. Berenstein catheter was advanced to the distal ureter and contrast injection was performed. The Amplatz guidewire was manipulated into the ur inary bladder. The catheter was exchanged over the guidewire for a 6 [place]ij[place] double pigtail ureteral stent. Distal portion of the ureteral stent was placed within the urinary bladder with the most proxi mal portion of the ureteral stent placed in the right renal collecting system. The proximal tip is in a peripheral calyx inferior pole right kidney. The 5 [place]ijani catheter was removed. A left nephrostogram was performed. The nephrostomy tube was cut and exchanged over a 0.035 inch Ampl axel guidewire for a 5 [place] Berenstein catheter which was manipulated to the distal right ureter. Contrast injection was performed. The catheter was exchanged over the 0.035 inch Amplatz guidewire fo r a 6 [place] double pigtail ureteral stent. Distal portion of the stent was formed in the urinary bladder with proximal portion of the ureteral stent coiled near the level of the UPJ. The catheter wa s removed. Dry sterile dressing was placed at previous site of each nephrostomy tube. The patient tolerated the procedure well and without immediate complication. Patient was transported to radiology nurses holding area for further monitoring prior to discharge. IMPRESSION: Technically successful bilateral 6 [place]ij[place] ureteral stent placement and removal of bilateral nephrosto my tubes.
[2019-11-18] MEDS ORDERED: Iopamidol 300 61% 50 ML VIAL FS ONE (15:47)
== END 2019-11-18 11:15 | disposition home or self-care (01) ==
LOC: SPEC 06:55
PROVIDERS: ATTEND Urology
PROC: 0TP93DZ Removal of Intraluminal Device from Ureter, Percutaneous Approach (ICD-10-PCS; principal; 2019-11-18)
PROC: 0T783DZ Dilation of Bilateral Ureters with Intraluminal Device, Percutaneous Approach (ICD-10-PCS; 2019-11-18)
DX: N13.1 Hydronephrosis with ureteral stricture, not elsewhere classified (principal); C61 Malignant neoplasm of prostate; I25.10 Atherosclerotic heart disease of native coronary artery without angina pectoris; I12.9 Hypertensive chronic kidney disease with stage 1 through stage 4 chronic kidney disease, or unspecified chronic kidney disease; N18.9 Chronic kidney disease, unspecified; F41.9 Anxiety disorder, unspecified; F32.9 Major depressive disorder, single episode, unspecified; K21.9 Gastro-esophageal reflux disease without esophagitis; E78.00 Pure hypercholesterolemia, unspecified; E78.5 Hyperlipidemia, unspecified; Z87.891 Personal history of nicotine dependence; Z79.02 Long term (current) use of antithrombotics/antiplatelets; Z79.82 Long term (current) use of aspirin; Z79.899 Other long term (current) drug therapy; Z88.0 Allergy status to penicillin; Z95.5 Presence of coronary angioplasty implant and graft
CPT/HCPCS: 50430; 50693; Q9967

== ENCOUNTER 2020-05-17 12:55 | Inpatient (IN) | payer MEDICARE, BC, OTHER ==
[~2020-05-17 12:55] MED LIST changes: -Gadobenate Dimeglumine 529 MG/1 ML (20ML VIAL) ONE; +Heparin 1,000 UNITS/ML VIAL ONE
[2020-05-17 13:35] LABS: Bilirubin Negative (Negative); Blood, Urine Large (Negative); Glucose, Urine (Dipstick) Negative (Negative); Ketone, Urine Negative (Negative); Leukocyte Large (Negative); Nitrite Positive (Negative); Protein, Urine (Dipstick) 100 mg/dL (Neg-Trace); Urobilinogen 0.2 mg/dL (Less than 2)
[2020-05-17 13:44] LABS: Clarity Turbid (Clear)
[2020-05-17 13:45] LABS: RBC/HPF 21-50 HPF (0-3); WBC/HPF Greater Than 50 HPF (0-3)
[2020-05-17 13:46] LABS: Bacteria/HPF 4+ HPF (None Seen); Squamous Epithelial 0-3 HPF (0-3); Yeast-Hyphae 1+ HPF (None Seen)
--- NOTE | 2020-05-17 13:53 | RAD ---
EXAM: CHEST ONE VIEW HISTORY: Syncope. COMPARISON: 09/20/2019 FINDINGS: The cardiac silhouette and pulmonary vasculature are within normal limits. Lungs are clear. Previousl y seen parenchymal opacity left lung base and left paramediastinal location the prior study is no longer visualized likely related to resolution of pleural fluid. The osseous structures are intact. IMPRESSION: No acute cardiopulmonary process.
--- NOTE | 2020-05-17 14:07 | CT ---
CT BRAIN WITHOUT CONTRAST: HISTORY: Altered mental status, syncope FINDINGS: No evidence of acute infarct, hemorrhage, midline shift or abnormal extra-axial fluid collections is seen. The ventricular size is appropriate and the basilar cisterns are patent. The bony calvarium is intact. The visualized paranasal sinuses and mastoid air cells are well aerated. IMPRESSION: No CT evidence of acute intracranial process.
[2020-05-17] MEDS ORDERED: cefTRIAXone\\ROCEPHIN 2 GM VIAL ONE (14:33)
[2020-05-17 14:46] LABS: #Eosinphils 0.1 thou/uL (0.0-0.7); #Lymphocytes 0.5 thou/uL (1.20-3.40); #Monocytes 1.2 thou/uL (0.11-0.59); #Neutrophils 9.9 thou/uL (1.40-6.50); %Eosinophils 0.6 % (0.0-10.0); %Monocytes 10.6 % (0.0-10.0); %Neutrophils 84.8 % (42.0-75.0); Hemoglobin 9.7 g/dL (14.0-18.0); Mean Corpuscular HGB CONC 32.6 g/dL (32.0-36.0); Mean Corpuscular Volume 89.1 fL (78.0-98.0); Platelet Count 407 thou/uL (130-400); RBC Distribution Width 15.3 % (11.5-14.5); Red Blood Cell (RBC) Count 3.34 mill/uL (4.70-6.10); White Blood Cell (WBC) Count 11.7 thou/uL (4.8-10.8)
[2020-05-17 15:10] LABS: ALT (SGPT) 15 U/L (8-55); AST (SGOT) 19 U/L (5-34); Albumin 3.8 g/dL (3.4-4.8); Alkaline Phosphatase 87 U/L (40-110); Anion Gap 16 mmol/L (10-20); BUN (Urea Nitrogen) 71 mg/dL (8.4-25.7); Bilirubin, Total 0.5 mg/dL (0.2-1.2); CK (CPK) 110 U/L (30-200); Calc. Creatinine Clearance 0 mL/min (70-130); Calcium 9.3 mg/dL (7.8-10.44); Carbon Dioxide 19 mmol/L (23-31); Chloride 108 mmol/L (98-107); Estimated GFR-MDRD 41; Globulin 3.4 g/dL (2.4-3.5); Glucose 107 mg/dL (83-110); Potassium 5.3 mmol/L (3.5-5.1); Protein, Total 7.2 g/dL (5.8-8.1); Sodium 138 mmol/L (136-145)
[2020-05-17] MEDS ORDERED: Acetaminophen 500 MG TAB ONE (15:13)
[2020-05-17] MEDS ORDERED: Vancomycin 1 GM/200 ML BAG ONE (17:08)
[2020-05-17] MEDS ORDERED: Sodium Chloride 0.9% 1,000 ML IV SCH (18:45)
[2020-05-17] MEDS ORDERED: Ondansetron PF 4 MG/2 ML Vial IVP PRN ×2 (18:45→19:28)
[2020-05-17] MEDS ORDERED: Ondansetron ODT 4 MG TAB SL PRN (18:45)
[2020-05-17] MEDS ORDERED: Ibuprofen 200 MG TAB PO PRN (19:28)
[2020-05-17] MEDS ORDERED: Ondansetron ODT 4 MG TAB PO PRN (19:28)
[2020-05-17] MEDS ORDERED: Ketorolac Tromethamine 30 MG/ML VIAL IVP PRN (19:28)
[2020-05-17] MEDS ORDERED: Labetalol HCl 100 MG/20 ML VIAL SLOW IVP PRN (19:28)
[2020-05-17] MEDS: Sodium Chloride 0.9% 1,000 ML IV SCH (20:43)
[2020-05-17] MEDS: Cefepime 2 GM in Sodium Chloride 0.9% 100 ML IVPB SCH (20:45)
[2020-05-17] MEDS: Acetaminophen 500 MG TAB PO PRN (20:50)
[2020-05-17] MEDS ORDERED: Famotidine 20 MG TAB PO SCH (21:00)
--- NOTE | 2020-05-17 22:56 | HP ---
PRIMARY CARE PROVIDER: Ian Brown MD UROLOGIST: Dr. Melara. CHIEF COMPLAINT: Altered mental status and confusion. HISTORY OF PRESENT ILLNESS: This is a 75-year-old male, who presents to [facility] Emergency Department after transported by EMS personnel, which were notified that the patient was driving in the wrong direction down [facility] and [place], [place]. The patient was confused and unable to provide much history or where he was traveling. The provides the majority of the history as the patient remains intermittently confused. The reports the patient had been confused at home with auditory and visual hallucinations, seeing kids that were not present as well as disorientation to current situation or where he was staying at home. The became concerned and wanted to take him to his urologist for evaluation, but was unable to secure an appointment. The patient admits to generalized weakness and fatigue, but no prior history of similar confusion. The patient's history is significant for prostate carcinoma with associated urinary retention, status post nephrostomy tube placement with eventual internalization and stent placement by his urologist. The patient apparently was recently treated for suspected urinary tract infection with oral Levaquin and Bactrim, however, has completed the regimen. The patient denied any nausea, vomiting, or documented fever. In the emergency room, the patient underwent general evaluation and was noted with a temperature of 101.5 degrees Fahrenheit and meeting sepsis criteria. Urinalysis was performed showing a potential infectious process, at which point, the patient received IV vancomycin, Rocephin, and 2 L of normal saline. The patient also received acetaminophen and was referred to the Hospitalist Service for further evaluation. PAST MEDICAL HISTORY: 1. Prostate carcinoma/bladder carcinoma, status post radiation therapy. 2. Urinary retention secondarily to prostate carcinoma. 3. Coronary artery disease, status post cardiac stent placement. 4. History of gastric ulcer. 5. Depression. 6. Chronic kidney disease. PAST SURGICAL HISTORY: 1. Status post bilateral nephrostomy tube placement with subsequent internalization. 2. Status post cardiac stent placement. CURRENT MEDICATIONS: 1. Lisinopril 20 mg p.o. daily. 2. Metoprolol succinate 50 mg p.o. b.i.d. 3. Aspirin 81 mg p.o. daily. 4. Plavix 75 mg p.o. daily. 5. Ferrous sulfate 325 mg p.o. daily. 6. Lipitor 80 mg p.o. daily. 7. Tamsulosin 0.4 mg p.o. daily. 8. Oxybutynin chloride 5 mg p.o. daily. 9. Vitamin D2 of 50,000 units. 10. Sertraline 100 mg p.o. daily. ALLERGIES: PENICILLIN. FAMILY HISTORY: Positive for hypertension. SOCIAL HISTORY: Resides in [place], [place]. Retired. No current alcohol, tobacco, or illicit drug use. REVIEW OF SYSTEMS: CONSTITUTIONAL: Negative for weight loss or gain, ability to conduct usual activities. SKIN: Negative for rash, itching. EYES: Negative for double vision, pain. ENT/MOUTH: Negative for nose bleeding, neck stiffness, pain, tenderness. CARDIOVASCULAR: Negative for palpitations, dyspnea on exertion, orthopnea. RESPIRATORY: Negative for shortness of breath, wheezing, cough, hemoptysis, fever or night sweats. GASTROINTESTINAL: Negative for poor appetite, abdominal pain, heartburn, nausea, vomiting, constipation, or diarrhea. GENITOURINARY: Negative for urgency, frequency, dysuria, nocturia. MUSCULOSKELETAL: Negative for pain, swelling. NEUROLOGIC/PSYCHIATRIC: Negative for anxiety, depression. ALLERGY/IMMUNOLOGIC: Negative for skin rash, bleeding tendency. Otherwise, negative except as stated per HPI. PHYSICAL EXAMINATION: VITAL SIGNS: On admission, blood pressure 146/72, pulse 83, respiratory rate 16, temperature 101.5 degrees Fahrenheit, and O2 saturation 99% on room air. GENERAL APPEARANCE: This is a 75-year-old male, alert and oriented x2, pleasant, responsive, in no acute distress. HEENT: Pupils are equal, round, reactive to light and accommodation. Extraocular muscles are intact. No scleral icterus. No conjunctival injection. Nares are patent. OP is clear. Oral mucosa dry. NECK: Supple. No cervical adenopathy. No thyromegaly. No carotid bruits. No JVD appreciated. Cervical spine with full active and passive range of motion. No meningeal signs noted. CHEST: Lungs are clear to auscultation bilaterally. CARDIOVASCULAR: S1 and S2 without noted murmur, rub, or gallop. ABDOMEN: Rounded, soft, nontender, and nondistended. Bowel sounds are positive in all 4 quadrants. There is no hepatosplenomegaly. No abdominal bruits. No rebound or guarding appreciated. EXTREMITIES: Warm and dry with fair turgor. No clubbing, cyanosis, or asymmetric edema appreciated. Pulses palpable distally at the dorsalis pedis, posterior tibial, and popliteal arteries bilaterally. Capillary refill less than 2 seconds. NEUROLOGIC: Alert and oriented x2. Cranial nerves 2 through 12 are grossly intact. No other focal or lateralizing signs appreciated. The patient not observed ambulatory during this exam. PERTINENT LABORATORY AND X-RAY FINDINGS: Sodium 138, potassium 5.3, chloride 108, CO2 of 19, BUN 71, creatinine 1.65, estimated GFR 41, glucose 107, lactic acid level 0.9, calcium 9.3. LFTs within normal limits. Albumin 3.8. CBC showed a white blood cell count of 11.7, hemoglobin 9.7, hematocrit 30, platelet count 407 with 85% neutrophilia. Urinalysis showed a turbid specimen, positive protein, large blood with positive nitrite and leukocyte esterase with 21-50 rbc's per high-power field and greater than 50 wbc's per high-power field. Portable chest x-ray dated 05/17/2020, showed no acute cardiopulmonary process. CT of the brain without contrast dated 05/17/2020, showed no acute intracranial process. Telemetry monitoring shows sinus mechanism with heart rates in the 90s. ASSESSMENT AND PLAN: 1. Sepsis secondarily to urinary tract infection. The patient will be admitted to the telemetry unit. We will continue general sepsis protocol with cefepime 2 g IV q.12 hours with additional Levaquin 750 mg IV daily. Continue IV fluids with normal saline at 125 mL/h. Continue fluid resuscitation and monitor for clinical response. Await final urine and blood culture results. 2. Acute kidney injury on chronic kidney disease stage 2. Avoid nephrotoxic agents and limit contrast exposure. Continue IV fluids as stated previously in #1. Repeat creatinine in the a.m. 3. Acute metabolic encephalopathy. Suspect multifactorial process including sepsis in addition to potential uremia. We will continue IV fluids and supportive management as outlined previously. CT of the brain negative. 4. Hyperkalemia, mild. We will continue IV fluids as outlined previously. Serial potassium monitoring. 5. Prostate carcinoma, status post radiation therapy. Continue supportive management as outlined previously. Consult Urology Service for any further recommendations. 6. Prophylaxis. SCDs while in bed. Pepcid 20 mg p.o. b.i.d. 7. Code status is full. Surrogate medical decision maker is the patient's spouse. Job ID: [id number]
[2020-05-18 04:13] LABS: #Eosinphils 0.1 thou/uL (0.0-0.7); #Lymphocytes 0.5 thou/uL (1.20-3.40); #Monocytes 1.4 thou/uL (0.11-0.59); #Neutrophils 12.2 thou/uL (1.40-6.50); %Eosinophils 0.4 % (0.0-10.0); %Lymphocytes 3.4 % (21.0-51.0); %Neutrophils 86.2 % (42.0-75.0); Hemoglobin 9.2 g/dL (14.0-18.0); Mean Corpuscular HGB CONC 32.5 g/dL (32.0-36.0); Mean Corpuscular Hemoglobin 29.1 pg (27.0-31.0); Mean Corpuscular Volume 89.7 fL (78.0-98.0); Mean Platelet Volume 6.2 fL (7.4-10.4); Platelet Count 341 thou/uL (130-400); RBC Distribution Width 15.4 % (11.5-14.5); Red Blood Cell (RBC) Count 3.16 mill/uL (4.70-6.10); White Blood Cell (WBC) Count 14.1 thou/uL (4.8-10.8)
[2020-05-18 04:32] LABS: ALT (SGPT) 12 U/L (8-55); AST (SGOT) 13 U/L (5-34); Albumin 3.1 g/dL (3.4-4.8); Alkaline Phosphatase 70 U/L (40-110); Anion Gap 14 mmol/L (10-20); BUN (Urea Nitrogen) 57 mg/dL (8.4-25.7); Bilirubin, Total 0.3 mg/dL (0.2-1.2); Calc. Creatinine Clearance 55 mL/min (70-130); Calcium 8.3 mg/dL (7.8-10.44); Carbon Dioxide 16 mmol/L (23-31); Chloride 112 mmol/L (98-107); Estimated GFR-MDRD 46; Glucose 109 mg/dL (83-110); Potassium 4.7 mmol/L (3.5-5.1); Protein, Total 6.1 g/dL (5.8-8.1); Sodium 137 mmol/L (136-145)
[2020-05-18] MEDS: Sodium Chloride 0.9% 1,000 ML IV SCH ×2 (04:39→15:05)
[2020-05-18] MEDS: Acetaminophen 500 MG TAB PO PRN (09:15)
[2020-05-18] MEDS: Cefepime 2 GM in Sodium Chloride 0.9% 100 ML IVPB SCH (09:15)
[2020-05-18] MEDS: Aspirin Chewable 81 MG TAB PO SCH (09:15)
[2020-05-18] MEDS: Tamsulosin HCl 0.4 MG CAP PO SCH (09:17)
[2020-05-18 13:32] LABS: SARS-CoV-2 MS2 Positive; SARS-CoV-2 N Gene Negative; SARS-CoV-2 S Gene Negative; SARS-CoV-2 by NAA Not Detected (NotDetected); SARS-CoV-2 orf1ab Negative
[2020-05-18] MEDS: cefTRIAXone\\ROCEPHIN 2 GM in Sodium Chloride 0.9% 100 ML IVPB SCH (15:04)
--- NOTE | 2020-05-18 15:15 | CT ---
CT Abdomen Pelvis WO Con 05/18/2020 2:30 PM HISTORY: Acute renal insufficiency/UTI. History of prostate cancer. Ureteral stents in place. COMPARISON: 09/16/2019 Technique: Multiple contiguous axial CT images are obtained through the abdomen and pelvis without IV contrast. Coronal reformats are provided. FINDINGS: This examination is limited for the evaluation of solid organs and vascular structures due to the lac k of intravenous contrast. Lower Chest: Resolution of large left pleural effusion and consolidation previously seen left lung ba se. Lung bases are clear on today's exam. Abdomen: Liver: Grossly normal non-enhanced CT appearance. Gallbladder: Distended measuring 10.4 cm in length. The common duct is not dilated. Pancreas: Grossly normal nonenhanced CT appearance. Spleen: Grossly normal nonenhanced CT appearance. Adrenals: Grossly normal nonenhanced CT appearance. Kidneys and ureters: Moderate bilateral hydronephrosis. Bilateral ureteral stents are in place with p roximal portion and each renal pelvis and distal portions in the urinary bladder. Bilateral perinephric stranding is present which was also seen on prior exam. Stranding adjacent to the left ki dney has improved. There is also evidence of mild periureteral stranding. Pelvis: Urinary bladder: Partially obscured due to artifact secondary to bilateral total hip prostheses. Uret eral stents are seen in the urinary bladder. Reproductive Organs: Not evaluated. Lymph Nodes: Again noted is aortocaval lymphadenopathy. Largest left para-aortic lymph node measures 2.6 cm in short axis dimension similar to prior study. Additional enlarged lymph nodes are also present. Mild increase in number of lymph nodes along each external iliac chain are present with enla rged lymph node on the left measuring 2.1 cm in short axis dimension which is increased in size compared to prior study where this measured less than 1 cm. A few additional lymph nodes are seen in this region also demonstrating mild enlargement. Bowel: Evidence of colonic diverticulosis. Loops of small bowel are normal in caliber. Appendix: The appendix is normal in caliber. Peritoneum: Trace free fluid in the left paracolic gutter. Retroperitoneum: Aortocaval and iliac chain lymphadenopathy which was described above. Vessels: Vascular calcifications in the abdominal aorta and iliac arteries.. Abdominal Wall: Tiny fat-containing umbilical hernia. Bones: Degenerative changes in the spine. There is a small subcentimeter sclerotic lesion in the righ t iliac bone adjacent to the right sacroiliac joint which is difficult to characterize. This was not present on prior exam. Stable subcentimeter sclerotic lesion is seen in the right iliac bone near the iliac crest. Sclerotic metastatic lesions cannot be excluded. IMPRESSION: 1. Moderate bilateral hydronephrosis and hydroureter. Bilateral ureteral stents are in place. 2. Bilateral perinephric inflammatory stranding and fluid which has improved compared to prior exam. 3. Aortocaval and iliac chain lymphadenopathy. Largest left para-aortic lymph node measures 2.6 cm wh ich demonstrates lower density area centrally which could be related to necrotic lymph node. 4. Subcentimeter sclerotic lesion right iliac bone. Sclerotic metastatic lesions would be difficult t o exclude. 5. Colonic diverticulosis.
--- NOTE | 2020-05-18 16:50 | PDOC.HOSPP ---
- Subjective Encounter Date: 05/18/20 Encounter Time: 11:45 Subjective: pt up in bed no complains - Objective Vital Signs & Weight: Vital Signs (12 hours) Temp Pulse Resp BP Pulse Ox 05/18/20 16:20 97.7 F 83 13 135/67 98 05/18/20 11:25 98.0 F 69 16 121/57 L 95 05/18/20 07:58 96 05/18/20 07:22 99.5 F 80 18 121/58 L 96 Weight Admit Weight 194 lb 1.6 oz Weight 196 lb 3.2 oz I&O: 05/17/20 05/18/20 05/19/20 06:59 06:59 06:59 Intake Total 1450 Output Total 250 Balance 1200 Result Diagrams: 05/18/20 03:45 05/18/20 03:45 Hospitalist ROS - Review of Systems Cardiovascular: denies: chest pain, palpitations, orthopnea, paroxysmal noc. dyspnea, edema, light headedness, other Gastrointestinal: denies: nausea, vomiting, abdominal pain, diarrhea, constipation, melena, hematochezia, other Genitourinary: denies: dysuria, frequency, incontinence, hematuria, retention, other - Medication Medications: Active Medications Generic Name Dose Route Start Last Admin Trade Name Freq PRN Reason Stop Dose Admin Acetaminophen 1,000 mg 05/17/20 19:28 05/18/20 09:15 Acetaminophen 500 Mg Tab PO 1,000 mg Q6H PRN Administration Mild Pain (1-3) Aspirin 81 mg 05/18/20 09:00 05/18/20 09:15 Aspirin Chewable 81 Mg Tab PO 81 mg DAILY CHRISTINE Administration Ceftriaxone Sodium 2 gm/ 100 mls @ 200 mls/hr 05/18/20 14:00 05/18/20 15:04 Sodium Chloride IVPB 100 mls 1400 CHRISTINE Administration Sertraline HCl 100 mg 05/17/20 21:00 05/17/20 20:46 Sertraline Hcl 100 Mg Tab PO 100 mg HS CHRISTINE Administration Sodium Chloride 10 ml 05/18/20 09:00 05/18/20 09:31 Flush - Normal Saline 10 Ml Syringe IVF Not Given Q12HR CHRISTINE Tamsulosin HCl 0.4 mg 05/18/20 09:00 05/18/20 09:17 Tamsulosin Hcl 0.4 Mg Cap PO Not Given DAILY CHRISTINE - Exam Heart: negative: RRR, no murmur, no gallops, no rubs, normal peripheral pulses, irregular, diminshed peripheral pulses, murmur present, II/IV, III/IV Respiratory: negative: CTAB, no wheezes, no rales, no ronchi, normal chest expansion, no tachypnea, normal percussion, rales, rhonchi, tachypneic, wheezes Gastrointestinal: negative: soft, non-tender, non-distended, normal bowel sounds, no palpable masses, no hepatomegaly, no splenomegaly, no bruit, no guarding, no rigidity, tender to palpation, distended, diminished bowl sounds, voluntary guarding Hosp A/P (1) Sepsis Code(s): A41.9 - SEPSIS, UNSPECIFIED ORGANISM Status: Acute (2) UTI (urinary tract infection) Status: Acute (3) Bacteremia Code(s): R78.81 - BACTEREMIA Status: Acute (4) CAD (coronary artery disease) Code(s): I25.10 - ATHSCL HEART DISEASE OF [place] CORONARY ARTERY W/O ANG PCTRS Status: Chronic (5) History of prostate cancer Code(s): Z85.46 - PERSONAL HISTORY OF MALIGNANT NEOPLASM OF PROSTATE Status: Chronic - Plan will change abx for now. will get ct abd/pel. pt more awake and follows command. will order ct abd/pel. will consult ID
[2020-05-18] MEDS: Ferrous Sulfate 325 MG TAB PO SCH (17:06)
--- NOTE | 2020-05-18 20:49 | CON ---
DATE OF CONSULTATION: 05/18/2020 REASON FOR CONSULTATION: UTI. CHIEF COMPLAINT: Confusion. HISTORY OF PRESENT ILLNESS: This is a 75-year-old male with a history of prostate cancer, admitted to the [facility] last summer for metastatic prostate cancer with bilateral hydronephrosis requiring nephrostomy tubes which have since been internalized. He has been voiding well and we had been planning on removing his stents in the near future. Initial biopsy in July 2019, [place] 9 prostate cancer, radiation completed in July 2020, actually starting chemotherapy in the near future. He was admitted yesterday for confusion after being found driving the wrong direction. He was disoriented and underwent evaluation in the emergency room with negative CT head and chest x-ray. Urinalysis, positive nitrite and leukocyte. He was admitted and started on antibiotics for urinary tract infection. Urine culture has now returned positive for E. coli as well as one of his blood cultures. Speaking with him today he knows where he is and reports feeling much better. He denies any flank pain, back pain, abdominal pain, nausea, fevers, dysuria, hematuria. He feels he is voiding well. PAST MEDICAL HISTORY: Prostate cancer, enlarged prostate with urinary symptoms and history of retention, coronary artery disease, depression, chronic kidney disease. SURGICAL HISTORY: Nephrostomy tubes with internalization, cardiac stent. CURRENT MEDICATIONS: Reviewed, pertinent for: 1. Tamsulosin. 2. Oxybutynin. ALLERGIES: PENICILLIN. FAMILY HISTORY: Reviewed, noncontributory. SOCIAL HISTORY: Still working part-time as a therapist. No substance abuse. REVIEW OF SYSTEMS: Ten-point review of systems negative except as mentioned in my HPI. PHYSICAL EXAMINATION: VITAL SIGNS: T-max 100.7 overnight, otherwise vitals stable. Urine output 250 mL with several voids into a diaper. GENERAL: No acute distress, conversant. HEENT: Head, normocephalic and atraumatic. Extraocular movements intact. Sclerae nonicteric. NECK: Supple. Trachea midline. Unlabored breathing. Symmetric chest expansion. HEART: Regular rate and rhythm. ABDOMEN: Soft, nontender, nondistended. No flank tenderness. No suprapubic tenderness. SKIN: Warm and dry. No peripheral edema. NEUROLOGIC: Alert and oriented x3. PSYCHIATRIC: Normal mood and affect. LABORATORY DATA: Reviewed. Urine positive nitrite, leukocyte esterase. Culture growing gram-negative rods. Blood cultures growing E. coli. White count 11 yesterday, 14 today. Creatinine 1.65 on admission, 1.49 today. IMAGING DATA: CT scan reviewed showing paraaortic lymphadenopathy, bilateral stents in good position with mild hydronephrosis bilaterally. Bladder does not appear distended. ASSESSMENT AND PLAN: 1. Sepsis secondary to urinary tract infection, hydronephrosis. 2. Trend creatinine, if it fails to continue to improve we will need to consider if a Greco catheter is necessary. Should his creatinine fail to improve/hydronephrosis persist despite Greco catheter, we may need to convert back to nephrostomy tubes. 3. I agree with broad-spectrum antibiotics as we await culture results. TIME SPENT: Greater than 70 minutes spent in patient care. Job ID: [id number]
[2020-05-18] MEDS: Famotidine 20 MG TAB PO SCH (21:35)
[2020-05-18] MEDS: Oxybutynin 5 MG TAB PO SCH (21:35)
[2020-05-19 08:26] LABS: #Eosinphils 0.1 thou/uL (0.0-0.7); #Lymphocytes 0.5 thou/uL (1.20-3.40); #Monocytes 1.1 thou/uL (0.11-0.59); #Neutrophils 9.8 thou/uL (1.40-6.50); %Eosinophils 0.9 % (0.0-10.0); %Lymphocytes 4.5 % (21.0-51.0); %Monocytes 9.6 % (0.0-10.0); Hemoglobin 8.5 g/dL (14.0-18.0); Mean Corpuscular HGB CONC 32.4 g/dL (32.0-36.0); Mean Corpuscular Hemoglobin 28.9 pg (27.0-31.0); Mean Corpuscular Volume 89.4 fL (78.0-98.0); Mean Platelet Volume 6.3 fL (7.4-10.4); Platelet Count 337 thou/uL (130-400); Red Blood Cell (RBC) Count 2.94 mill/uL (4.70-6.10); White Blood Cell (WBC) Count 11.5 thou/uL (4.8-10.8)
[2020-05-19 08:48] LABS: Anion Gap 15 mmol/L (10-20); BUN (Urea Nitrogen) 53 mg/dL (8.4-25.7); Calc. Creatinine Clearance 44 mL/min (70-130); Calcium 8.5 mg/dL (7.8-10.44); Carbon Dioxide 16 mmol/L (23-31); Chloride 111 mmol/L (98-107); Estimated GFR-MDRD 35; Glucose 107 mg/dL (83-110); Potassium 4.2 mmol/L (3.5-5.1); Sodium 138 mmol/L (136-145)
[2020-05-19] MEDS: Aspirin Chewable 81 MG TAB PO SCH (09:54)
[2020-05-19] MEDS: Oxybutynin 5 MG TAB PO SCH ×2 (09:54→21:12)
[2020-05-19] MEDS: Tamsulosin HCl 0.4 MG CAP PO SCH (09:54)
--- NOTE | 2020-05-19 10:51 | PDOC.HOSPP ---
- Subjective Encounter Date: 05/19/20 Encounter Time: 10:49 Subjective: pt up in bed no complains - Objective Vital Signs & Weight: Vital Signs (12 hours) Temp Pulse Resp BP Pulse Ox 05/19/20 07:43 98.5 F 82 18 162/71 H 99 05/19/20 04:00 99.8 F H 99 18 169/77 H 98 05/19/20 00:05 86 20 123/58 L Weight Admit Weight 194 lb 1.6 oz Weight 196 lb 9.6 oz I&O: 05/18/20 05/19/20 05/20/20 06:59 06:59 06:59 Intake Total 1450 1825 Output Total 250 800 Balance 1200 1025 Result Diagrams: 05/19/20 07:55 05/19/20 07:55 Hospitalist ROS - Review of Systems Respiratory: denies: cough, dry, shortness of breath, hemoptysis, SOB with excertion, pleuritic pain, sputum, wheezing, other Cardiovascular: denies: chest pain, palpitations, orthopnea, paroxysmal noc. dyspnea, edema, light headedness, other Gastrointestinal: denies: nausea, vomiting, abdominal pain, diarrhea, constipation, melena, hematochezia, other - Medication Medications: Active Medications Generic Name Dose Route Start Last Admin Trade Name Freq PRN Reason Stop Dose Admin Acetaminophen 1,000 mg 05/17/20 19:28 05/18/20 09:15 Acetaminophen 500 Mg Tab PO 1,000 mg Q6H PRN Administration Mild Pain (1-3) Aspirin 81 mg 05/18/20 09:00 05/19/20 09:54 Aspirin Chewable 81 Mg Tab PO 81 mg DAILY CHRISTINE Administration Famotidine 20 mg 05/18/20 21:00 05/18/20 21:35 Famotidine 20 Mg Tab PO 20 mg QPM CHRISTINE Administration Ferrous Sulfate 325 mg 05/18/20 17:00 05/18/20 17:06 Ferrous Sulfate 325 Mg Tab PO 325 mg 1700 CHRISTINE Administration Ceftriaxone Sodium 2 gm/ 100 mls @ 200 mls/hr 05/18/20 14:00 05/18/20 15:04 Sodium Chloride IVPB 100 mls 1400 CHRISTINE Administration Oxybutynin Chloride 5 mg 05/18/20 21:00 05/19/20 09:54 Oxybutynin 5 Mg Tab PO 5 mg BID CHRISTINE Administration Sertraline HCl 100 mg 05/17/20 21:00 05/18/20 21:35 Sertraline Hcl 100 Mg Tab PO 100 mg HS CHRISTINE Administration Sodium Chloride 10 ml 05/18/20 09:00 05/19/20 09:54 Flush - Normal Saline 10 Ml Syringe IVF 10 ml Q12HR CHRISTINE Administration Tamsulosin HCl 0.4 mg 05/18/20 09:00 05/19/20 09:54 Tamsulosin Hcl 0.4 Mg Cap PO 0.4 mg DAILY CHRISTINE Administration - Exam Heart: negative: RRR, no murmur, no gallops, no rubs, normal peripheral pulses, irregular, diminshed peripheral pulses, murmur present, II/IV, III/IV Respiratory: negative: CTAB, no wheezes, no rales, no ronchi, normal chest expansion, no tachypnea, normal percussion, rales, rhonchi, tachypneic, wheezes Gastrointestinal: negative: soft, non-tender, non-distended, normal bowel sounds, no palpable masses, no hepatomegaly, no splenomegaly, no bruit, no guarding, no rigidity, tender to palpation, distended, diminished bowl sounds, voluntary guarding Hosp A/P (1) Sepsis Code(s): A41.9 - SEPSIS, UNSPECIFIED ORGANISM Status: Acute (2) UTI (urinary tract infection) Status: Acute (3) Bacteremia Code(s): R78.81 - BACTEREMIA Status: Acute (4) CAD (coronary artery disease) Code(s): I25.10 - ATHSCL HEART DISEASE OF [place] CORONARY ARTERY W/O ANG PCTRS Status: Chronic (5) History of prostate cancer Code(s): Z85.46 - PERSONAL HISTORY OF MALIGNANT NEOPLASM OF PROSTATE Status: Chronic (6) [place] (acute kidney injury) Code(s): N17.9 - ACUTE KIDNEY FAILURE, UNSPECIFIED Status: Acute (7) Metastatic malignant neoplasm to prostate Code(s): C79.82 - SECONDARY MALIGNANT NEOPLASM OF GENITAL ORGANS Status: Acute (8) Pyelonephritis Code(s): N12 - [place]O-INTERSTITIAL NEPHRITIS, NOT SPCF ACUTE OR CHRONIC Status: Acute - Plan will change abx for now. will get ct abd/pel. pt more awake and follows command. will order ct abd/pel. will consult ID 05/19 pt's creatinine is worsening. per urology notes if continues to worsen will need schwartz. He has mild hydronephrosis. pt has stents bilaterally.
[2020-05-19] MEDS ORDERED: Amlodipine 10 MG TAB PO SCH (11:00)
[2020-05-19] MEDS: cefTRIAXone\\ROCEPHIN 2 GM in Sodium Chloride 0.9% 100 ML IVPB SCH (15:33)
[2020-05-19] MEDS: Clopidogrel Bisulfate 75 MG TAB PO SCH (16:41)
[2020-05-19] MEDS: Atorvastatin Calcium 40 MG TAB PO SCH (16:41)
[2020-05-19] MEDS: Ferrous Sulfate 325 MG TAB PO SCH (16:41)
--- NOTE | 2020-05-19 18:27 | CON ---
DATE OF CONSULTATION: REASON FOR CONSULTATION: Prostate cancer with bilateral urinary obstruction with stents and now hydronephrosis with E coli with bacteremia. HISTORY OF PRESENT ILLNESS: A 75-year-old with history of bladder/prostate cancer, on radiation therapy, bilateral hydronephrosis, status post bilateral stents, who presented with altered mental state, brought by family. No documented fever or chills. No respiratory symptoms. No abdominal pain or vomiting. No chest pain. Initial findings; temperature peaked at 101.5, blood pressure 150/70, pulse 82, respirations 22, O2 saturations 97%. The initial findings of the exam remarkable for altered mental state with some flight of ideas and rambling speech. The other findings on arrival; white cell count 11.7, hemoglobin 9.7, platelets 407, 84% neutrophils. Sodium 138; creatinine 1.65, his previous baseline was 0.93 in January 2020. His liver profile normal. Albumin 3.8. Urinalysis greater than 50 wbc's. COVID not detected. Imaging study included chest x-ray with no infiltrates or effusion. Brain CT with no acute intracranial process. Abdomen and pelvis CT with moderate bilateral hydronephrosis, hydroureter, bilateral ureteral stents, bilateral perinephric inflammatory stranding, which has improved compared with prior exam. Aortocaval and iliac chain lymphadenopathy, the largest one measures 2.6 cm. Sclerotic lesion in the right iliac bone noted. We will have 1/2 sets of blood cultures with E coli and urine culture with the same organism, resistant to quinolones and ampicillin, but susceptible to other agents. Currently, Mr. Gardiner is awake, alert, feeling better. No headaches, visual symptoms, sore throat, odynophagia, or dysphagia. No dyspnea or chest pain. No abdominal pain. He has a Greco catheter inserted and he has a peripheral IV access. PAST MEDICAL HISTORY: Prostate cancer with lymph node mets, urinary retention, bilateral ureteral stents, coronary artery disease, cardiac stents, gastric ulcer, depression, CKD. Procedures include nephrostomy tube placement and then stent was done to replace the nephrostomy tubes, and those nephrostomy tubes have been removed, cardiac stents. ALLERGIES: PENICILLIN WITH RASH. FAMILY HISTORY: Hypertension. SOCIAL HISTORY: Retired. Never smoker. CURRENT MEDICATIONS: 1. Norvasc. 2. Lipitor. 3. Ceftriaxone. 4. Plavix. 5. Pepcid. 6. Toprol. 7. Zofran. 8. Ditropan. 9. Flomax. PHYSICAL EXAMINATION: VITAL SIGNS: T-max 100.7, blood pressure 140/60, pulse 79, respirations 16, and O2 saturation 98%. SKIN: The patient has a Greco catheter and peripheral IV access. No lymphadenopathy. HEENT: Ocular movements conjugate. Oral cavity unremarkable. NECK: Supple. LUNGS: Symmetric. Clear breath sounds. HEART: S1 and S2. Regular rate. No S3 or S4. ABDOMEN: Soft with some tenderness in the flank area, right side. No bladder distention. No genital abnormalities. EXTREMITIES: No joint inflammatory activity. No edema. Pulses 1+ in dorsalis pedis. Moves extremities equally. Cognitive function appears to be intact. FOLLOWUP LABORATORY DATA: White cell count 11.5, hemoglobin 8.5, platelets 337, 85% neutrophils. Creatinine is down to 1.49. ASSESSMENT: 1. Prostate cancer with local mets, bilateral obstruction of renal outflow tract and requirement for diversion initially with nephrostomy tubes and now I will convert it to stents. 2. Altered mental state with evidence of invasive urinary tract infection with pyelonephritis. This appears improved compared with previous findings according to the radiologist. DISCUSSION: The patient presents with an invasive UTI with bacteremia associated with pyelonephritis. This is associated with the stents in the persistence of some element of obstruction, right and left side. I am not sure that the bladder drainage is going to help with this. Nonetheless, he has a Greco catheter and see how he progresses. In terms of his creatinine, that should improve first and the hydronephrosis would take longer to improve. Some elements of the previous findings seem to have improved according to radiologist. I do not see a previous imaging record here though. Regarding treatment for this, I think that we are looking at probably no more than 10 days of therapy and Rocephin would be the drug of choice to be continued. The third generation oral cephalosporins are usually have worse track record in terms of management of pyelonephritis, so I would not choose them. Evidently he will continue to have problems with obstruction and infection in view of the malignancy and medium/long-term outcome will depend on options for reduction in the size of the masses. Job ID: [id number] [facility]
[2020-05-19] MEDS: Famotidine 20 MG TAB PO SCH (21:12)
[2020-05-20 05:24] LABS: Anion Gap 13 mmol/L (10-20); BUN (Urea Nitrogen) 53 mg/dL (8.4-25.7); Calc. Creatinine Clearance 48 mL/min (70-130); Calcium 8.8 mg/dL (7.8-10.44); Carbon Dioxide 19 mmol/L (23-31); Chloride 109 mmol/L (98-107); Estimated GFR-MDRD 39; Glucose 118 mg/dL (83-110); Potassium 3.8 mmol/L (3.5-5.1); Sodium 137 mmol/L (136-145)
[2020-05-20] MEDS: Aspirin Chewable 81 MG TAB PO SCH (09:08)
[2020-05-20] MEDS: Oxybutynin 5 MG TAB PO SCH ×2 (09:08→20:17)
[2020-05-20] MEDS: Tamsulosin HCl 0.4 MG CAP PO SCH (09:08)
[2020-05-20] MEDS: Amlodipine 10 MG TAB PO SCH (09:08)
--- NOTE | 2020-05-20 13:21 | MRI ---
MRI BRAIN WITHOUT CONTRAST: HISTORY: Altered mental status CORRELATION: CT scan from 05/17/2020. FINDINGS: No restricted diffusion is seen. There are few foci of T2 prolongation in the periventricular white m atter, consistent with mild chronic small vessel ischemic disease. The ventricular size is appropriate and the basilar cisterns are patent. No evidence of acute infarct, hemorrhage, midline shift or abnormal extra-axial fluid collections is seen. The visualized paranasal sinuses and mastoid air cells are well-aerated. IMPRESSION: No evidence of acute intracranial process.
[2020-05-20 13:27] VITALS: BMI 29.9
[2020-05-20] MEDS: cefTRIAXone\\ROCEPHIN 2 GM in Sodium Chloride 0.9% 100 ML IVPB SCH (13:43)
--- NOTE | 2020-05-20 16:05 | ULT ---
RENAL ULTRASOUND: 05/20/20 INDICATION: History of prostate cancer and renal cancer. COMPARISON: Prior CT abdomen and pelvis without contrast dated 05/18/20. FINDINGS: The patient's known renal stents are not as well as seen as on the comparison CT. There is a Greco ca theter in decompressed bladder. There is mild bilateral hydronephrosis, less prominent than on prior examination. The right kidney measures 11.4 cm in length. Right renal cortical thickness is 1.7 cm. t he left kidney measured 11.8 cm in length with a left renal cortical thickness of 1.6 cm. IMPRESSION: 1. Improving bilateral hydronephrosis. 2. Greco catheter. POS: BH
[2020-05-20] MEDS: Atorvastatin Calcium 40 MG TAB PO SCH (17:18)
[2020-05-20] MEDS: Clopidogrel Bisulfate 75 MG TAB PO SCH (17:18)
[2020-05-20] MEDS: Ferrous Sulfate 325 MG TAB PO SCH (17:18)
--- NOTE | 2020-05-20 17:59 | PRG ---
DATE OF SERVICE: 05/20/2020 SUBJECTIVE: No acute events overnight. The patient tells me that he has not had any fevers or flank pain. He did find the Greco catheter somewhat uncomfortable for the first few hours after it was placed, but this has since resolved. OBJECTIVE: VITAL SIGNS: T-max 99.8, briefly tachycardic, otherwise vitals stable. Urine output listed as 550 mL only. GENERAL: No acute distress, conversant. LUNGS: Unlabored breathing. ABDOMEN: Soft, nontender, and nondistended. No flank tenderness. No suprapubic tenderness. GENITOURINARY: Greco catheter in good position draining dark cloudy urine. NEURO: Alert and oriented to person, however, he seems more confused than yesterday and has difficulty telling me where he is. LABORATORY DATA: Creatinine 1.74 today, down from 1.89 yesterday, which was up from 1.49 on the . IMAGING DATA: I personally reviewed his CT scan from , which showed stents in good position with bilateral hydronephrosis and minimally distended bladder. Ultrasound today shows improved bilateral hydronephrosis. ASSESSMENT AND PLAN: Sepsis secondary to urinary tract infection, bilateral hydronephrosis secondary to likely bladder outlet obstruction, now improving with Greco catheter. Greco catheter to remain until he is through his current situation. I expect that he will keep this for at least 2 weeks until a void trial in my office. Trend creatinine as this has already started to improve with Greco catheter drainage. PSA 5. This is not elevated from his previous check. It is of no concern for progression of prostate cancer in this acute setting. Urine culture, Escherichia coli. He has already been transitioned to Rocephin and will need 7 to 10 days of this. 40 minutes spent in the patient care. Job ID: [id number] MTDD
[2020-05-20] MEDS: Famotidine 20 MG TAB PO SCH (20:17)
[2020-05-21 08:31] LABS: Anion Gap 14 mmol/L (10-20); BUN (Urea Nitrogen) 51 mg/dL (8.4-25.7); Calc. Creatinine Clearance 61 mL/min (70-130); Calcium 9.1 mg/dL (7.8-10.44); Carbon Dioxide 21 mmol/L (23-31); Chloride 108 mmol/L (98-107); Estimated GFR-MDRD 52; Glucose 104 mg/dL (83-110); Potassium 4.3 mmol/L (3.5-5.1); Sodium 139 mmol/L (136-145)
[2020-05-21] MEDS: Amlodipine 10 MG TAB PO SCH (09:34)
[2020-05-21] MEDS: Aspirin Chewable 81 MG TAB PO SCH (09:35)
[2020-05-21] MEDS: Oxybutynin 5 MG TAB PO SCH ×2 (09:35→20:25)
[2020-05-21] MEDS: Tamsulosin HCl 0.4 MG CAP PO SCH (09:35)
--- NOTE | 2020-05-21 12:01 | SPC ---
Ultrasound and Fluoroscopic guided left upper extremity PICC placement HISTORY: Urinary tract infection. Needs long-term IV antibiotics. FINDINGS: Informed consent obtained prior to the procedure. An appropriate access site was determined with ultrasound guidance. The area was then meticulously pr epped and draped in usual sterile fashion. Skin overlying the left basilic vein anesthetized with 1% buffered lidocaine. Utilizing direct sonogr aphic guidance, vascular access is obtained via the left basilic vein, and an 0.018in guidewire was advanced to the distal SVC. Intravascular length is calculated at 42 cm, and the PICC is cut accordin gly. Needle is removed and replaced with a peel-away sheath. The PICC was advanced over the wire. Wire and peel-away sheath were removed. The tip of the catheter overlies the distal SVC. The catheter was accessed and aspirated/flushed easily. Exposure data: 0.2 minutes of fluoroscopic time 1454 mGy centimeter squared FINDINGS: Technically successful placement of a 42 centimeter single lumen 5 Haitian left upper extremity PICC l ine. IMPRESSION: Successful ultrasound guided placement of a left upper extremity PICC.
--- NOTE | 2020-05-21 13:45 | PRG ---
DATE OF SERVICE: 05/21/2020 SUBJECTIVE: The patient has improved overnight, reporting reduction in his hallucinations. He denies chest pains, difficulty breathing, suprapubic pain, flank pain, nausea, fevers. OBJECTIVE: VITAL SIGNS: Afebrile. Vitals stable overnight. Good urine output. LUNGS: Unlabored breathing. ABDOMEN: Soft. No flank tenderness. No suprapubic tenderness. Greco catheter draining dark urine still with less sediment. LABORATORY DATA: Creatinine has continued to improve with Greco catheter. Urine culture grew E. coli earlier this week. ASSESSMENT AND PLAN: Sepsis secondary to urinary tract infection, hydronephrosis secondary to bladder outlet obstruction. Greco catheter to remain for now while he is being treated for his infection. I will see him on May 31 for cystoscopy and void trial. Stent management will occur likely 2 or 3 weeks afterwards. 20 minutes spent in the patient's care. Job ID: [id number]
[2020-05-21] MEDS: cefTRIAXone\\ROCEPHIN 2 GM in Sodium Chloride 0.9% 100 ML IVPB SCH (14:43)
--- NOTE | 2020-05-21 15:45 | PRG ---
DATE OF SERVICE: 05/21/2020 SUBJECTIVE: The patient is less delirious. No headaches. No sore throat, odynophagia, or dysphagia. No cough or dyspnea. No abdominal pain. OBJECTIVE: VITAL SIGNS: T-max 100 on and he has been afebrile since; heart rate 70; respiratory rate 18; O2 saturation 100% on room air. LUNGS: Clear. HEART: S1 and S2. Regular rate. ABDOMEN: Soft, not distended. : Greco catheter draining urine, a little bit less concentrated before. LABORATORY DATA: White cell count 11.5, hemoglobin 8.5, platelets 337. Creatinine is down to 1.35, and the urine and blood cultures noted. He is currently receiving Rocephin to be continued. The end date of therapy is estimated at least around 10 days total therapy, so the end date of therapy will be around May 29, followed by Dr. Melara and then voiding trial at that moment. His creatinine is improving, so this seems like the measures taken thus far have been effective in relieving the obstruction. Job ID: [id number]
[2020-05-21] MEDS: Clopidogrel Bisulfate 75 MG TAB PO SCH (17:43)
[2020-05-21] MEDS: Atorvastatin Calcium 40 MG TAB PO SCH (17:43)
[2020-05-21] MEDS: Ferrous Sulfate 325 MG TAB PO SCH (17:43)
--- NOTE | 2020-05-21 18:19 | PDOC.HOSPP ---
- Subjective Encounter Date: 05/21/20 Encounter Time: 10:30 Subjective: pt up in bed no complains - Objective Vital Signs & Weight: Vital Signs (12 hours) Temp Pulse Pulse Pulse Resp BP BP 05/21/20 15:07 63 58 L 126/59 L 146/65 H 05/21/20 14:40 97.5 F L 64 18 05/21/20 11:30 96.3 F L 70 18 05/21/20 08:00 98.2 F 65 20 BP Pulse Ox 05/21/20 15:07 05/21/20 14:40 134/76 99 05/21/20 11:30 136/58 L 100 05/21/20 08:00 136/65 98 Weight Admit Weight 194 lb 1.6 oz Weight 194 lb 11.2 oz I&O: 05/20/20 05/21/20 05/22/20 06:59 06:59 06:59 Intake Total 240 2000 837 Output Total 550 2700 2200 Balance -283 -843 -2642 Result Diagrams: 05/19/20 07:55 05/21/20 07:56 Hospitalist ROS - Review of Systems Cardiovascular: denies: chest pain, palpitations, orthopnea, paroxysmal noc. dyspnea, edema, light headedness, other Gastrointestinal: denies: nausea, vomiting, abdominal pain, diarrhea, constipation, melena, hematochezia, other Genitourinary: denies: dysuria, frequency, incontinence, hematuria, retention, other - Medication Medications: Active Medications Generic Name Dose Route Start Last Admin Trade Name Freq PRN Reason Stop Dose Admin Acetaminophen 1,000 mg 05/17/20 19:28 05/18/20 09:15 Acetaminophen 500 Mg Tab PO 1,000 mg Q6H PRN Administration Mild Pain (1-3) Amlodipine Besylate 10 mg 05/20/20 09:00 05/21/20 09:34 Amlodipine 10 Mg Tab PO 10 mg DAILY CHRISTINE Administration Aspirin 81 mg 05/18/20 09:00 05/21/20 09:35 Aspirin Chewable 81 Mg Tab PO 81 mg DAILY CHRISTINE Administration Atorvastatin Calcium 80 mg 05/19/20 17:00 05/21/20 17:43 Atorvastatin Calcium 40 Mg Tab PO 80 mg 1700 CHRISTINE Administration Clopidogrel Bisulfate 75 mg 05/19/20 17:00 09/25/20 17:43 Clopidogrel Bisulfate 75 Mg Tab PO 75 mg 1700 CHRISTINE Administration Famotidine 20 mg 05/18/20 21:00 05/20/20 20:17 Famotidine 20 Mg Tab PO 20 mg QPM CHRISTINE Administration Ferrous Sulfate 325 mg 05/18/20 17:00 05/21/20 17:43 Ferrous Sulfate 325 Mg Tab PO 325 mg 1700 CHRISTINE Administration Ceftriaxone Sodium 2 gm/ 100 mls @ 200 mls/hr 05/18/20 14:00 05/21/20 14:43 Sodium Chloride IVPB 100 mls 1400 CHRISTINE Administration Metoprolol Succinate 50 mg 05/19/20 17:00 05/21/20 17:43 Metoprolol Succinate Xl 50 Mg Tab PO 50 mg 1700 CHRISTINE Administration Oxybutynin Chloride 5 mg 05/18/20 21:00 05/21/20 09:35 Oxybutynin 5 Mg Tab PO 5 mg BID CHRISTINE Administration Sertraline HCl 100 mg 05/17/20 21:00 05/20/20 20:17 Sertraline Hcl 100 Mg Tab PO 100 mg HS CHRISTINE Administration Sodium Chloride 10 ml 05/18/20 09:00 05/21/20 09:36 Flush - Normal Saline 10 Ml Syringe IVF 10 ml Q12HR CHRISTINE Administration Tamsulosin HCl 0.4 mg 05/18/20 09:00 05/21/20 09:35 Tamsulosin Hcl 0.4 Mg Cap PO 0.4 mg DAILY CHRISTINE Administration - Exam Heart: negative: RRR, no murmur, no gallops, no rubs, normal peripheral pulses, irregular, diminshed peripheral pulses, murmur present, II/IV, III/IV Respiratory: negative: CTAB, no wheezes, no rales, no ronchi, normal chest expansion, no tachypnea, normal percussion, rales, rhonchi, tachypneic, wheezes Gastrointestinal: negative: soft, non-tender, non-distended, normal bowel sounds, no palpable masses, no hepatomegaly, no splenomegaly, no bruit, no guarding, no rigidity, tender to palpation, distended, diminished bowl sounds, voluntary guarding Hosp A/P (1) Sepsis Code(s): A41.9 - SEPSIS, UNSPECIFIED ORGANISM Status: Acute (2) UTI (urinary tract infection) Status: Acute (3) Bacteremia Code(s): R78.81 - BACTEREMIA Status: Acute (4) CAD (coronary artery disease) Code(s): I25.10 - ATHSCL HEART DISEASE OF [place] CORONARY ARTERY W/O ANG PCTRS Status: Chronic (5) History of prostate cancer Code(s): Z85.46 - PERSONAL HISTORY OF MALIGNANT NEOPLASM OF PROSTATE Status: Chronic (6) ALYSON (acute kidney injury) Code(s): N17.9 - ACUTE KIDNEY FAILURE, UNSPECIFIED Status: Acute (7) Metastatic malignant neoplasm to prostate Code(s): C79.82 - SECONDARY MALIGNANT NEOPLASM OF GENITAL ORGANS Status: Acute (8) Pyelonephritis Code(s): N12 - TUBULO-INTERSTITIAL NEPHRITIS, NOT SPCF ACUTE OR CHRONIC Status: Acute - Plan will change abx for now. will get ct abd/pel. pt more awake and follows command. will order ct abd/pel. will consult ID 05/19 pt's creatinine is worsening. per urology notes if continues to worsen will need schwartz. He has mild hydronephrosis. pt has stents bilaterally. 05/20 will get MRI brain without contrast since pt had this episode of confusion.He does have metastatic prostate cancer want to rule out any brain lesion. will not give pt contrast due to his ckd. schwartz cath placed his cre atinine has improved. 05/[address] vocational case manager during rounds at 11am was notified that we need iv abx set up but it was not done and pt will now have to stay the weekend.
--- NOTE | 2020-05-21 18:23 | PDOC.HOSPP ---
- Subjective Encounter Date: 05/20/20 Encounter Time: 11:30 Subjective: pt up in bed had an episode of confusion this am - Objective Vital Signs & Weight: Vital Signs (12 hours) Temp Pulse Pulse Pulse Resp BP BP 05/21/20 15:07 63 58 L 126/59 L 146/65 H 05/21/20 14:40 97.5 F L 64 18 05/21/20 11:30 96.3 F L 70 18 05/21/20 08:00 98.2 F 65 20 BP Pulse Ox 05/21/20 15:07 05/21/20 14:40 134/76 99 05/21/20 11:30 136/58 L 100 05/21/20 08:00 136/65 98 Weight Admit Weight 194 lb 1.6 oz Weight 194 lb 11.2 oz I&O: 05/20/20 05/21/20 05/22/20 06:59 06:59 06:59 Intake Total 240 2000 837 Output Total 550 2700 2200 Balance -301 -264 -2942 Result Diagrams: 05/19/20 07:55 05/21/20 07:56 Hospitalist ROS - Review of Systems Cardiovascular: denies: chest pain, palpitations, orthopnea, paroxysmal noc. dyspnea, edema, light headedness, other Gastrointestinal: denies: nausea, vomiting, abdominal pain, diarrhea, con stipation, melena, hematochezia, other Genitourinary: denies: dysuria, frequency, incontinence, hematuria, retention, other Neurological: reports: confusion - Medication Medications: Active Medications Generic Name Dose Route Start Last Admin Trade Name Jose Enriqueq PRN Reason Stop Dose Admin Acetaminophen 1,000 mg 05/17/20 19:28 05/18/20 09:15 Acetaminophen 500 Mg Tab PO 1,000 mg Q6H PRN Administration Mild Pain (1-3) Amlodipine Besylate 10 mg 05/20/20 09:00 05/21/20 09:34 Amlodipine 10 Mg Tab PO 10 mg DAILY CHRISTINE Administration Aspirin 81 mg 05/18/20 09:00 05/21/20 09:35 Aspirin Chewable 81 Mg Tab PO 81 mg DAILY CHRISTINE Administration Atorvastatin Calcium 80 mg 05/19/20 17:00 05/21/20 17:43 Atorvastatin Calcium 40 Mg Tab PO 80 mg 1700 CHRISTINE Administration Clopidogrel Bisulfate 75 mg 05/19/20 17:00 05/21/20 17:43 Clopidogrel Bisulfate 75 Mg Tab PO 75 mg 1700 CHRISTINE Administration Famotidine 20 mg 05/18/20 21:00 05/20/20 20:17 Famotidine 20 Mg Tab PO 20 mg QPM CHRISTINE Administration Ferrous Sulfate 325 mg 05/18/20 17:00 05/21/20 17:43 Ferrous Sulfate 325 Mg Tab PO 325 mg 1700 CHRISTINE Administration Ceftriaxone Sodium 2 gm/ 100 mls @ 200 mls/hr 05/18/20 14:00 05/21/20 14:43 Sodium Chloride IVPB 100 mls 1400 CHRISTINE Administration Metoprolol Succinate 50 mg 05/19/20 17:00 05/21/20 17:43 Metoprolol Succinate Xl 50 Mg Tab PO 50 mg 1700 CHRISTINE Administration Oxybutynin Chloride 5 mg 05/18/20 21:00 05/21/20 09:35 Oxybutynin 5 Mg Tab PO 5 mg BID CHRISTINE Administration Sertraline HCl 100 mg 05/17/20 21:00 05/20/20 20:17 Sertraline Hcl 100 Mg Tab PO 100 mg HS CHRISTINE Administration Sodium Chloride 10 ml 05/18/20 09:00 05/21/20 09:36 Flush - Normal Saline 10 Ml Syringe IVF 10 ml Q12HR CHRISTINE Administration Tamsulosin HCl 0.4 mg 05/18/20 09:00 05/21/20 09:35 Tamsulosin Hcl 0.4 Mg Cap PO 0.4 mg DAILY CHRISTINE Administration - Exam Heart: negative: RRR, no murmur, no gallops, no rubs, normal peripheral pulses, irregular, diminshed peripheral pulses, murmur present, II/IV, III/IV Respiratory: negative: CTAB, no wheezes, no rales, no ronchi, normal chest expansion, no tachypnea, normal percussion, rales, rhonchi, tachypneic, wheezes Gastrointestinal: negative: soft, non-tender, non-distended, normal bowel sounds, no palpable masses, no hepatomegaly, no splenomegaly, no bruit, no guarding, no rigidity, tender to palpation, distended, diminished bowl sounds, voluntary guarding Hosp A/P (1) Sepsis Code(s): A41.9 - SEPSIS, UNSPECIFIED ORGANISM Status: Acute (2) UTI (urinary tract infection) Status: Acute (3) Bacteremia Code(s): R78.81 - BACTEREMIA Status: Acute (4) CAD (coronary artery disease) Code(s): I25.10 - ATHSCL HEART DISEASE OF [place] CORONARY ARTERY W/O ANG PCTRS Status: Chronic (5) History of prostate cancer Code(s): Z85.46 - PERSONAL HISTORY OF MALIGNANT NEOPLASM OF PROSTATE Status: Chronic (6) ALYSON (acute kidney injury) Code(s): N17.9 - ACUTE KIDNEY FAILURE, UNSPECIFIED Status: Acute (7) Metastatic malignant neoplasm to prostate Code(s): C79.82 - SECONDARY MALIGNANT NEOPLASM OF GENITAL ORGANS Status: Acute (8) Pyelonephritis Code(s): N12 - TUBULO-INTERSTITIAL NEPHRITIS, NOT SPCF ACUTE OR CHRONIC Status: Acute - Plan will change abx for now. will get ct abd/pel. pt more awake and follows command. will order ct abd/pel. will consult ID 05/19 pt's creatinine is worsening. per urology notes if continues to worsen will need schwartz. He has mild hydronephrosis. pt has stents bilaterally. 05/20 will get MRI brain without contrast since pt had this episode of confusion.He does have metastatic prostate cancer want to rule out any brain lesion. will not give pt contrast due to his ckd. schwartz cath placed his creatinine has improved.
[2020-05-21] MEDS: Famotidine 20 MG TAB PO SCH (20:25)
[2020-05-22] MEDS ORDERED: Polyethylene Glycol 3350 17 GM Packet PO PRN (09:25)
[2020-05-22] MEDS ORDERED: Polyethylene Glycol 3350 17 GM Packet PO SCH (09:30)
[2020-05-22] MEDS ORDERED: Senokot S 8.6-50 MG TAB PO SCH (09:30)
[2020-05-22] MEDS: Oxybutynin 5 MG TAB PO SCH ×2 (09:38→20:39)
[2020-05-22] MEDS: Amlodipine 10 MG TAB PO SCH (09:38)
[2020-05-22] MEDS: Tamsulosin HCl 0.4 MG CAP PO SCH (09:38)
[2020-05-22] MEDS: Aspirin Chewable 81 MG TAB PO SCH (09:38)
[2020-05-22 09:53] LABS: #Eosinphils 0.1 thou/uL (0.0-0.7); #Lymphocytes 0.5 thou/uL (1.20-3.40); #Monocytes 1.1 thou/uL (0.11-0.59); #Neutrophils 8.1 thou/uL (1.40-6.50); %Eosinophils 1.4 % (0.0-10.0); %Lymphocytes 5.4 % (21.0-51.0); %Neutrophils 82.1 % (42.0-75.0); Hemoglobin 8.8 g/dL (14.0-18.0); Mean Corpuscular HGB CONC 33.2 g/dL (32.0-36.0); Mean Corpuscular Hemoglobin 29.8 pg (27.0-31.0); Mean Corpuscular Volume 89.7 fL (78.0-98.0); Mean Platelet Volume 6.1 fL (7.4-10.4); Platelet Count 419 thou/uL (130-400); Red Blood Cell (RBC) Count 2.96 mill/uL (4.70-6.10); White Blood Cell (WBC) Count 9.9 thou/uL (4.8-10.8)
--- NOTE | 2020-05-22 10:40 | PDOC.HOSPP ---
- Subjective Encounter Date: 05/22/20 Encounter Time: 09:00 Subjective: pt up in chair no complains - Objective Vital Signs & Weight: Vital Signs (12 hours) Temp Pulse Resp BP Pulse Ox 05/22/20 07:25 99.1 F 70 16 130/60 99 05/22/20 04:00 98.4 F 76 20 127/60 98 05/22/20 00:00 115/58 L Weight Admit Weight 194 lb 1.6 oz Weight 194 lb I&O: 05/21/20 05/22/20 05/23/20 06:59 06:59 06:59 Intake Total 1999 1257 Output Total 2700 6206 Balance -460 -9130 Result Diagrams: 05/22/20 09:36 05/21/20 07:56 Hospitalist ROS - Review of Systems Cardiovascular: denies: chest pain, palpitations, orthopnea, paroxysmal noc. dyspnea, edema, light headedness, other Gastrointestinal: denies: nausea, vomiting, abdominal pain, diarrhea, constipation, melena, hematochezia, other Genitourinary: denies: dysuria, frequency, incontinence, hematuria, retention, other - Medication Medications: Active Medications Generic Name Dose Route Start Last Admin Trade Name Freq PRN Reason Stop Dose Admin Acetaminophen 1,000 mg 05/17/20 19:28 05/18/20 09:15 Acetaminophen 500 Mg Tab PO 1,000 mg Q6H PRN Administration Mild Pain (1-3) Amlodipine Besylate 10 mg 05/20/20 09:00 05/22/20 09:38 Amlodipine 10 Mg Tab PO 10 mg DAILY CHRISTINE Administration Aspirin 81 mg 05/18/20 09:00 05/22/20 09:38 Aspirin Chewable 81 Mg Tab PO 81 mg DAILY CHRISTINE Administration Atorvastatin Calcium 80 mg 05/19/20 17:00 05/21/20 17:43 Atorvastatin Calcium 40 Mg Tab PO 80 mg 1700 CHRISTINE Administration Clopidogrel Bisulfate 75 mg 05/19/20 17:00 05/21/20 17:43 Clopidogrel Bisulfate 75 Mg Tab PO 75 mg 1700 CHRISTINE Administration Famotidine 20 mg 05/18/20 21:00 05/21/20 20:25 Famotidine 20 Mg Tab PO 20 mg QPM CHRISTINE Administration Ferrous Sulfate 325 mg 05/18/20 17:00 05/21/20 17:43 Ferrous Sulfate 325 Mg Tab PO 325 mg 1700 CHRISTINE Administration Ceftriaxone Sodium 2 gm/ 100 mls @ 200 mls/hr 05/18/20 14:00 05/21/20 14:43 Sodium Chloride IVPB 100 mls 1400 CHRISTINE Administration Metoprolol Succinate 50 mg 05/19/20 17:00 05/21/20 17:43 Metoprolol Succinate Xl 50 Mg Tab PO 50 mg 1700 CHRISTINE Administration Oxybutynin Chloride 5 mg 05/18/20 21:00 05/22/20 09:38 Oxybutynin 5 Mg Tab PO 5 mg BID CHRISTINE Administration Polyethylene Glycol 17 gm 05/22/20 09:30 05/22/20 10:32 Polyethylene Glycol 3350 17 Gm Packet PO 05/22/20 12:00 17 gm NOW CHRISTINE Administration Senna/Docusate Sodium 1 tab 05/22/20 09:30 05/22/20 10:31 Senokot S 8.6-50 Mg Tab PO 05/22/20 12:00 1 tab NOW CHRISTINE Administration Sertraline HCl 100 mg 05/17/20 21:00 05/21/20 20:25 Sertraline Hcl 100 Mg Tab PO 100 mg HS CHRISTINE Administration Sodium Chloride 10 ml 05/18/20 09:00 05/22/20 09:39 Flush - Normal Saline 10 Ml Syringe IVF 10 ml Q12HR CHRISTINE Administration Tamsulosin HCl 0.4 mg 05/18/20 09:00 05/22/20 09:38 Tamsulosin Hcl 0.4 Mg Cap PO 0.4 mg DAILY CHRISTINE Administration - Exam Neck: negative: supple, symmetric, no JVD, no thyromegaly, no lymphadenopathy, no carotid bruit, JVD Heart: negative: RRR, no murmur, no gallops, no rubs, normal peripheral pulses, irregular, diminshed peripheral pulses, murmur present, II/IV, III/IV Respiratory: negative: CTAB, no wheezes, no rales, no ronchi, normal chest expansion, no tachypnea, normal percussion, rales, rhonchi, tachypneic, wheezes Gastrointestinal: negative: soft, non-tender, non-distended, normal bowel sounds, no palpable masses, no hepatomegaly, no splenomegaly, no bruit, no guarding, no rigidity, tender to palpation, distended, diminished bowl sounds, voluntary guarding Hosp A/P (1) Sepsis Code(s): A41.9 - SEPSIS, UNSPECIFIED ORGANISM Status: Acute (2) UTI (urinary tract infection) Status: Acute (3) Bacteremia Code(s): R78.81 - BACTEREMIA Status: Acute (4) CAD (coronary artery disease) Code(s): I25.10 - ATHSCL HEART DISEASE OF [place] CORONARY ARTERY W/O ANG PCTRS Status: Chronic (5) History of prostate cancer Code(s): Z85.46 - PERSONAL HISTORY OF MALIGNANT NEOPLASM OF PROSTATE Status: Chronic (6) ALYSON (acute kidney injury) Code(s): N17.9 - ACUTE KIDNEY FAILURE, UNSPECIFIED Status: Acute (7) Metastatic malignant neoplasm to prostate Code(s): C79.82 - SECONDARY MALIGNANT NEOPLASM OF GENITAL ORGANS Status: Acute (8) Pyelonephritis Code(s): N12 - TUBULO-INTERSTITIAL NEPHRITIS, NOT SPCF ACUTE OR CHRONIC Status: Acute - Plan will change abx for now. will get ct abd/pel. pt more awake and follows command. will order ct abd/pel. will consult ID 05/19 pt's creatinine is worsening. per urology notes if continues to worsen will need schwartz. He has mild hydronephrosis. pt has stents bilaterally. 05/20 will get MRI brain without contrast since pt had this episode of confusion.He does have metastatic prostate cancer want to rule out any brain lesion. will not give pt contrast due to his ckd. schwartz cath placed his creatinine has improved. 05/[address] upper caser during rounds at 11am was notified that we need iv abx set up but it was not done and pt will now have to stay the weekend. 05/22 pt's hh low but stable. He tells me that he had a colonoscopy last year no records in the chart. will check labs in am. will check stool for occult blood. pt's called and left message again today. pt states that he has had blood transfusion. His creatinine is improving. pt can be discharged once his antibiotics has been set up.
[2020-05-22] MEDS: cefTRIAXone\\ROCEPHIN 2 GM in Sodium Chloride 0.9% 100 ML IVPB SCH (14:20)
[2020-05-22] MEDS: Ferrous Sulfate 325 MG TAB PO SCH (17:39)
[2020-05-22] MEDS: Clopidogrel Bisulfate 75 MG TAB PO SCH (17:39)
[2020-05-22] MEDS: Atorvastatin Calcium 40 MG TAB PO SCH (17:39)
--- NOTE | 2020-05-22 18:29 | PDOC.HOSPP ---
- Subjective Encounter Date: 05/22/20 Encounter Time: 10:15 Subjective: pt up in chair no complains. - Objective Vital Signs & Weight: Vital Signs (12 hours) Temp Pulse Resp BP Pulse Ox 05/22/20 15:00 98.6 F 78 16 119/64 95 05/22/20 11:15 98.8 F 75 16 113/84 99 05/22/20 07:25 99.1 F 70 16 130/60 99 Weight Admit Weight 194 lb 1.6 oz Weight 194 lb I&O: 05/21/20 05/22/20 05/23/20 06:59 06:59 06:59 Intake Total 1999 1257 580 Output Total 2752 7731 650 Balance -346 -2393 -70 Result Diagrams: 05/22/20 09:36 05/21/20 07:56 Hospitalist ROS - Review of Systems Cardiovascular: denies: chest pain, palpitations, orthopnea, paroxysmal noc. dyspnea, edema, light headedness, other Gastrointestinal: denies: nausea, vomiting, abdominal pain, diarrhea, constipation, melena, hematochezia, other Genitourinary: denies: dysuria, frequency, incontinence, hematuria, retention, other - Medication Medications: Active Medications Generic Name Dose Route Start Last Admin Trade Name Freq PRN Reason Stop Dose Admin Acetaminophen 1,000 mg 05/17/20 19:28 05/18/20 09:15 Acetaminophen 500 Mg Tab PO 1,000 mg Q6H PRN Administration Mild Pain (1-3) Amlodipine Besylate 10 mg 05/20/20 09:00 05/22/20 09:38 Amlodipine 10 Mg Tab PO 10 mg DAILY CHRISTINE Administration Aspirin 81 mg 05/18/20 09:00 05/22/20 09:38 Aspirin Chewable 81 Mg Tab PO 81 mg DAILY CHRISTINE Administration Atorvastatin Calcium 80 mg 05/19/20 17:00 05/22/20 17:39 Atorvastatin Calcium 40 Mg Tab PO 80 mg 1700 CHRISTINE Administration Clopidogrel Bisulfate 75 mg 05/19/20 17:00 05/22/20 17:39 Clopidogrel Bisulfate 75 Mg Tab PO 75 mg 1700 CHRISTINE Administration Famotidine 20 mg 05/18/20 21:00 05/21/20 20:25 Famotidine 20 Mg Tab PO 20 mg QPM CHRISTINE Administration Ferrous Sulfate 325 mg 05/18/20 17:00 05/22/20 17:39 Ferrous Sulfate 325 Mg Tab PO 325 mg 1700 CHRISTINE Administration Ceftriaxone Sodium 2 gm/ 100 mls @ 200 mls/hr 05/18/20 14:00 05/22/20 14:20 Sodium Chloride IVPB 100 mls 1400 CHRISTINE Administration Metoprolol Succinate 50 mg 05/19/20 17:00 05/22/20 17:39 Metoprolol Succinate Xl 50 Mg Tab PO 50 mg 1700 CHRISTINE Administration Oxybutynin Chloride 5 mg 05/18/20 21:00 05/22/20 09:38 Oxybutynin 5 Mg Tab PO 5 mg BID CHRISTINE Administration Sertraline HCl 100 mg 05/17/20 21:00 05/21/20 20:25 Sertraline Hcl 100 Mg Tab PO 100 mg HS CHRISTINE Administration Sodium Chloride 10 ml 05/18/20 09:00 05/22/20 09:39 Flush - Normal Saline 10 Ml Syringe IVF 10 ml Q12HR CHRISTINE Administration Tamsulosin HCl 0.4 mg 05/18/20 09:00 05/22/20 09:38 Tamsulosin Hcl 0.4 Mg Cap PO 0.4 mg DAILY CHRISTINE Administration - Exam Neck: negative: supple, symmetric, no JVD, no thyromegaly, no lymphadenopathy, no carotid bruit, JVD Heart: negative: RRR, no murmur, no gallops, no rubs, normal peripheral pulses, irregular, diminshed peripheral pulses, murmur present, II/IV, III/IV Respiratory: negative: CTAB, no wheezes, no rales, no ronchi, normal chest expansion, no tachypnea, normal percussion, rales, rhonchi, tachypneic, wheezes Gastrointestinal: negative: soft, non-tender, non-distended, normal bowel sounds, no palpable masses, no hepatomegaly, no splenomegaly, no bruit, no guarding, no rigidity, tender to palpation, distended, diminished bowl sounds, voluntary guarding Hosp A/P (1) Sepsis Code(s): A41.9 - SEPSIS, UNSPECIFIED ORGANISM Status: Acute (2) UTI (urinary tract infection) Status: Acute (3) Bacteremia Code(s): R78.81 - BACTEREMIA Status: Acute (4) CAD (coronary artery disease) Code(s): I25.10 - ATHSCL HEART DISEASE OF [place] CORONARY ARTERY W/O ANG PCTRS Status: Chronic (5) History of prostate cancer Code(s): Z85.46 - PERSONAL HISTORY OF MALIGNANT NEOPLASM OF PROSTATE Status: Chronic (6) ALYSON (acute kidney injury) Code(s): N17.9 - ACUTE KIDNEY FAILURE, UNSPECIFIED Status: Acute (7) Metastatic malignant neoplasm to prostate Code(s): C79.82 - SECONDARY MALIGNANT NEOPLASM OF GENITAL ORGANS Status: Acute (8) Pyelonephritis Code(s): N12 - TUBULO-INTERSTITIAL NEPHRITIS, NOT SPCF ACUTE OR CHRONIC Sta tus: Acute - Plan will change abx for now. will get ct abd/pel. pt more awake and follows command. will order ct abd/pel. will consult ID 05/19 pt's creatinine is worsening. per urology notes if continues to worsen will need schwartz. He has mild hydronephrosis. pt has stents bilaterally. 05/20 will get MRI brain without contrast since pt had this episode of confusion.He does have metastatic prostate cancer want to rule out any brain lesion. will not give pt contrast due to his ckd. schwartz cath placed his creatinine has improved. 05/[address] field case manager during rounds at 11am was notified that we need iv abx set up but it was not done and pt will now have to stay the weekend. 05/22 pt's hh low but stable. He tells me that he had a colonoscopy last year no records in the chart. will check labs in am. will check stool for occult blood. pt's called and left message again today. pt states that he has had blood transfusion. His creatinine is improving. pt can be discharged once his antibiotics has been set up.
[2020-05-22] MEDS: Famotidine 20 MG TAB PO SCH (20:39)
[2020-05-23] MEDS ORDERED: Vancomycin 1 GM in Premix Bag 1 BAG IVPB SCH (05:00)
[2020-05-23] MEDS: Oxybutynin 5 MG TAB PO SCH ×2 (08:42→20:42)
[2020-05-23] MEDS: Amlodipine 10 MG TAB PO SCH (08:42)
[2020-05-23] MEDS: Tamsulosin HCl 0.4 MG CAP PO SCH (08:42)
[2020-05-23] MEDS: Aspirin Chewable 81 MG TAB PO SCH (08:42)
[2020-05-23] MEDS: Polyethylene Glycol 3350 17 GM Packet PO SCH (08:43)
--- NOTE | 2020-05-23 08:55 | PDOC.HOSPP ---
- Subjective Encounter Date: 05/23/20 Encounter Time: 07:30 Subjective: Last night patient had 100.4 fever, no overnight event, patient is feeling little bit weak today - Objective Vital Signs & Weight: Vital Signs (12 hours) Temp Pulse Resp BP Pulse Ox 05/23/20 04:00 100.4 F H 89 18 153/70 H 96 Weight Admit Weight 194 lb 1.6 oz Weight 196 lb 8 oz I&O: 05/22/20 05/23/20 05/24/20 06:59 06:59 06:59 Intake Total 1257 1160 Output Total 3650 1550 Balance -7586 -305 Result Diagrams: 05/22/20 09:36 05/21/20 07:56 Radiology Reviewed by me: Yes EKG Reviewed by me: Yes Hospitalist ROS - Review of Systems Constitutional: reports: fever, weakness. denies: chills, sweats, malaise, other ENT: denies: ear pain, ear discharge, nose pain, nose discharge, nose congestion, mouth pain, mouth swelling, throat pain, throat swelling, other Respiratory: denies: cough, dry, shortness of breath, hemoptysis, SOB with excertion, pleuritic pain, sputum, wheezing, other Cardiovascular: denies: chest pain, palpitations, orthopnea, paroxysmal noc. dyspnea, edema, light headedness, other Gastrointestinal: denies: nausea, vomiting, abdominal pain, diarrhea, constipation, melena, hematochezia, other Genitourinary: denies: dysuria, frequency, incontinence, hematuria, retention, other Musculoskeletal: denies: neck pain, shoulder pain, arm pain, back pain, hand pain, leg pain, foot pain, other Skin: denies: rash, lesions, kye, bruising, other - Medication Medications: Active Medications Generic Name Dose Route Start Last Admin Trade Name Freq PRN Reason Stop Dose Admin Acetaminophen 1,000 mg 05/17/20 19:28 05/18/20 09:15 Acetaminophen 500 Mg Tab PO 1,000 mg Q6H PRN Administration Mild Pain (1-3) Amlodipine Besylate 10 mg 05/20/20 09:00 05/23/20 08:42 Amlodipine 10 Mg Tab PO 10 mg DAILY CHRISTINE Administration Aspirin 81 mg 05/18/20 09:00 05/23/20 08:42 Aspirin Chewable 81 Mg Tab PO 81 mg DAILY CHRISTINE Administration Atorvastatin Calcium 80 mg 05/19/20 17:00 05/22/20 17:39 Atorvastatin Calcium 40 Mg Tab PO 80 mg 1700 CHRISTINE Administration Clopidogrel Bisulfate 75 mg 05/19/20 17:00 05/22/20 17:39 Clopidogrel Bisulfate 75 Mg Tab PO 75 mg 1700 CHRISTINE Administration Famotidine 20 mg 05/18/20 21:00 05/22/20 20:39 Famotidine 20 Mg Tab PO 20 mg QPM CHRISTINE Administration Ferrous Sulfate 325 mg 05/18/20 17:00 05/22/20 17:39 Ferrous Sulfate 325 Mg Tab PO 325 mg 1700 CHRISTINE Administration Ceftriaxone Sodium 2 gm/ 100 mls @ 200 mls/hr 05/18/20 14:00 05/22/20 14:20 Sodium Chloride IVPB 100 mls 1400 CHRISTINE Administration Metoprolol Succinate 50 mg 05/19/20 17:00 05/22/20 17:39 Metoprolol Succinate Xl 50 Mg Tab PO 50 mg 1700 CHRISTINE Administration Oxybutynin Chloride 5 mg 05/18/20 21:00 05/23/20 08:42 Oxybutynin 5 Mg Tab PO 5 mg BID CHRISTINE Administration Polyethylene Glycol 17 gm 05/23/20 09:00 05/23/20 08:43 Polyethylene Glycol 3350 17 Gm Packet PO Not Given DAILY [facility] Sertraline HCl 100 mg 05/17/20 21:00 05/22/20 20:38 Sertraline Hcl 100 Mg Tab PO 100 mg HS CHRISTINE Administration Sodium Chloride 10 ml 05/18/20 09:00 05/23/20 08:43 Flush - Normal Saline 10 Ml Syringe IVF 10 ml Q12HR CHRISTINE Administration Tamsulosin HCl 0.4 mg 05/18/20 09:00 05/23/20 08:42 Tamsulosin Hcl 0.4 Mg Cap PO 0.4 mg DAILY CHRISTINE Administration - Exam General Appearance: NAD, awake alert Eye: PERRL, anicteric sclera ENT: normocephalic atraumatic, no oropharyngeal lesions Neck: supple, symmetric, no JVD, no thyromegaly Heart: RRR, no murmur, no gallops Respiratory: CTAB, no wheezes, no rales, no ronchi Gastrointestinal: soft, non-tender, non-distended, normal bowel sounds Extremities: no cyanosis, no clubbing Skin: normal turgor, no lesions Neurological: no new deficit Musculoskeletal: normal tone, normal strength Psychiatric: normal affect, normal behavior, A&O x 3 Hosp A/P (1) Sepsis Code(s): A41.9 - SEPSIS, UNSPECIFIED ORGANISM Status: Acute (2) Bacteremia, escherichia coli Code(s): R78.81 - BACTEREMIA; B96.20 - UNSP ESCHERICHIA COLI THE CAUSE OF DISEASES CLASSD ELSWHR Status: Acute (3) UTI (urinary tract infection) Status: Acute (4) CAD (coronary artery disease) Code(s): I25.10 - ATHSCL HEART DISEASE OF [place] CORONARY ARTERY W/O ANG PCTRS Status: Chronic (5) History of heart artery stent Code(s): Z95.5 - PRESENCE OF CORONARY ANGIOPLASTY IMPLANT AND GRAFT Status: Chronic (6) History of prostate cancer Code(s): Z85.46 - PERSONAL HISTORY OF MALIGNANT NEOPLASM OF PROSTATE Status: Chronic - Plan old records reviewed/req, continue antibiotics Plan Continue Rocephin As patient has fever we will continue to monitor Infectious disease following Medication reviewed and continue provide symptomatic and supportive care
[2020-05-23] MEDS: cefTRIAXone\\ROCEPHIN 2 GM in Sodium Chloride 0.9% 100 ML IVPB SCH (14:20)
[2020-05-23] MEDS: Clopidogrel Bisulfate 75 MG TAB PO SCH (16:37)
[2020-05-23] MEDS: Atorvastatin Calcium 40 MG TAB PO SCH (16:37)
[2020-05-23] MEDS: Ferrous Sulfate 325 MG TAB PO SCH (16:38)
[2020-05-23] MEDS: Acetaminophen 500 MG TAB PO PRN (20:41)
[2020-05-23] MEDS: Famotidine 20 MG TAB PO SCH (20:42)
[2020-05-24] MEDS: Amlodipine 10 MG TAB PO SCH (08:10)
[2020-05-24] MEDS: Oxybutynin 5 MG TAB PO SCH (08:12)
[2020-05-24] MEDS: Tamsulosin HCl 0.4 MG CAP PO SCH (08:12)
[2020-05-24] MEDS: Aspirin Chewable 81 MG TAB PO SCH (08:12)
[2020-05-24] MEDS: Polyethylene Glycol 3350 17 GM Packet PO SCH (08:12)
[2020-05-24 11:12] VITALS: TEMP 98.9
[2020-05-24 12:26] VITALS: BP 127/65
--- NOTE | 2020-05-24 13:03 | PDOC.HOSPP ---
- Subjective Encounter Date: 05/24/20 Encounter Time: 11:15 Subjective: no abd pain or sob or nausea feels good - Objective Vital Signs & Weight: Vital Signs (12 hours) Temp Pulse Resp BP BP Pulse Ox 05/24/20 12:26 98.9 F 78 18 127/65 97 05/24/20 08:10 76 135/73 05/24/20 08:00 98.9 F 76 20 135/73 96 05/24/20 04:31 97.6 F 77 16 152/68 H 98 Weight Admit Weight 194 lb 1.6 oz Weight 196 lb 8 oz I&O: 05/23/20 05/24/20 05/25/20 06:59 06:59 06:59 Intake Total 1160 1400 Output Total 1550 1550 Balance -390 -150 Result Diagrams: 05/22/20 09:36 05/21/20 07:56 Hospitalist ROS - Medication Medications: Active Medications Generic Name Dose Route Start Last Admin Trade Name Freq PRN Reason Stop Dose Admin Acetaminophen 1,000 mg 05/17/20 19:28 05/23/20 20:41 Acetaminophen 500 Mg Tab PO 1,000 mg Q6H PRN Administration Mild Pain (1-3) Amlodipine Besylate 10 mg 05/20/20 09:00 05/24/20 08:10 Amlodipine 10 Mg Tab PO 10 mg DAILY CHRISTINE Administration Aspirin 81 mg 05/18/20 09:00 05/24/20 08:12 Aspirin Chewable 81 Mg Tab PO 81 mg DAILY CHRISTINE Administration Atorvastatin Calcium 80 mg 05/19/20 17:00 05/23/20 16:37 Atorvastatin Calcium 40 Mg Tab PO 80 mg 1700 CHRISTINE Administration Clopidogrel Bisulfate 75 mg 05/19/20 17:00 05/23/20 16:37 Clopidogrel Bisulfate 75 Mg Tab PO 75 mg 1700 CHRISTINE Administration Famotidine 20 mg 05/18/20 21:00 05/23/20 20:42 Famotidine 20 Mg Tab PO 20 mg QPM CHRISTINE Administration Ferrous Sulfate 325 mg 05/18/20 17:00 05/23/20 16:38 Ferrous Sulfate 325 Mg Tab PO 325 mg 1700 CHRISTINE Administration Ceftriaxone Sodium 2 gm/ 100 mls @ 200 mls/hr 05/18/20 14:00 05/23/20 14:20 Sodium Chloride IVPB 100 mls 1400 CHRISTINE Administration Metoprolol Succinate 50 mg 05/19/20 17:00 05/23/20 16:38 Metoprolol Succinate Xl 50 Mg Tab PO 50 mg 1700 CHRISTINE Administration Oxybutynin Chloride 5 mg 05/18/20 21:00 05/24/20 08:12 Oxybutynin 5 Mg Tab PO 5 mg BID CHRISTINE Administration Polyethylene Glycol 17 gm 05/23/20 09:00 05/24/20 08:12 Polyethylene Glycol 3350 17 Gm Packet PO 17 gm DAILY CHRISTINE Administration Sertraline HCl 100 mg 05/17/20 21:00 05/23/20 20:42 Sertraline Hcl 100 Mg Tab PO 100 mg HS CHRISTINE Administration Sodium Chloride 10 ml 05/18/20 09:00 05/24/20 08:12 Flush - Normal Saline 10 Ml Syringe IVF 10 ml Q12HR CHRISTINE Administration Tamsulosin HCl 0.4 mg 05/18/20 09:00 05/24/20 08:12 Tamsulosin Hcl 0.4 Mg Cap PO 0.4 mg DAILY CHRISTINE Administration - Exam General Appearance: awake alert Eye: PERRL, anicteric sclera ENT: no oropharyngeal lesions, moist mucosa Neck: supple, no JVD Heart: RRR, no murmur Respiratory: no wheezes, no rales Gastrointestinal: soft, non-tender, non-distended, normal bowel sounds Gastrointestinal - other findings: schwartz+ Extremities: no cyanosis, no edema Neurological: cranial nerve grossly intact, no focal deficits Psychiatric: normal affect, A&O x 3 Hosp A/P (1) Sepsis Code(s): A41.9 - SEPSIS, UNSPECIFIED ORGANISM Status: Acute Qualifiers: Sepsis type: Escherichia coli Sepsis acute organ dysfunction status: with acute organ dysfunction Severe sepsis acute organ dysfunction type: acute renal failure Acute renal failure type: unspecified Severe sepsis shock status: without septic shock Qualified Code(s): A41.51 - Sepsis due to Escherichia coli [E. coli]; R65.20 - Severe sepsis without septic shock; N17.9 - Acute kidney failure, unspecified (2) Bacteremia, escherichia coli Code(s): R78.81 - BACTEREMIA; B96.20 - UNSP ESCHERICHIA COLI THE CAUSE OF DISEASES CLASSD ELSWHR Status: Acute (3) ALYSON (acute kidney injury) Code(s): N17.9 - ACUTE KIDNEY FAILURE, UNSPECIFIED Status: Resolved (4) UTI (urinary tract infection) Status: Acute Qualifiers: Urinary tract infection type: acute cystitis Hematuria presence: without hematuria Qualified Code(s): N30.00 - Acute cystitis without hematuria (5) Anemia Code(s): D64.9 - ANEMIA, UNSPECIFIED Status: Chronic (6) CAD (coronary artery disease) Code(s): I25.10 - ATHSCL HEART DISEASE OF [place] CORONARY ARTERY W/O ANG PCTRS Status: Chronic Qualifiers: Coronary Disease-Associated Artery/Lesion type: [place] artery [place] vs. transplanted heart: [place] heart Associated angina: without angina Qualified Code(s): I25.10 - Atherosclerotic heart disease of [place] coronary artery without angina pectoris (7) History of prostate cancer Code(s): Z85.46 - PERSONAL HISTORY OF MALIGNANT NEOPLASM OF PROSTATE Status: Chronic (8) Dyslipidemia Code(s): E78.5 - HYPERLIPIDEMIA, UNSPECIFIED Status: Chronic - Plan is on ceftriaxone till may 29December dc home anytime if outpt antibiotics are arranged continue asp, lipitor, plavix, toprol xl, ditropan, flomax, zoloft outpt f/u with urology, has psa of 5.9 hemostable
[2020-05-24] MEDS: cefTRIAXone\\ROCEPHIN 2 GM in Sodium Chloride 0.9% 100 ML IVPB SCH (13:28)
--- NOTE | 2020-05-24 16:33 | DIS ---
DATE OF ADMISSION: 05/17/2020 DATE OF DISCHARGE: 05/24/2020 DISCHARGE DISPOSITION: Home. PRIMARY DISCHARGE DIAGNOSES: Escherichia coli bacteremia, sepsis, urinary tract infection, history of prostate cancer. SECONDARY DISCHARGE DIAGNOSES: Acute kidney injury, coronary artery disease, chronic anemia. PROCEDURES DONE DURING HOSPITALIZATION: Echo with 2D Doppler showed ejection fraction of 60% to 65%. Abdominal and pelvic CAT scan without contrast done on 05/18/2020 showed moderate bilateral hydronephrosis and hydroureter. Bilateral ureteral stents are in place. Bilateral perinephric inflammatory stranding and fluid with colonic diverticulosis. 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 MRI brain showed no evidence of acute intracranial process. Renal ultrasound done showed improving bilateral hydronephrosis on 05/20/2020. He has had a PICC line placed on 05/21/2020. Blood cultures 1 of 2 grew E coli, resistant to quinolones and ampicillin, but sensitive to all other antibiotics. Urine culture grew E coli, resistant to ampicillin and quinolones. A repeat blood culture drawn on 05/23/2020 has not grown any organism. White count of 14, H and H of 9 and 26, platelet count 419, MCV 89. BUN and creatinine were 51 and 1.3 on 05/21/2020. PSA 5.95. Admitting BUN and creatinine were 71 and 1.6. COVID-19 PCR was not detected on 05/17/2020. INPATIENT CONSULTS: Dr. Palacios for Infectious Disease, Dr. Melara for Urology. DISCHARGE MEDICATIONS: 1. Ceftriaxone 2 g IV daily until May 29. 2. Zoloft 100 mg p.o. at bedtime. 3. Plavix 75 mg p.o. daily. 4. Norvasc 10 mg p.o. daily. 5. Aspirin 81 mg p.o. daily. 6. Toprol-XL 50 mg daily. 7. Lorazepam 1 mg twice daily p.r.n. for anxiety. 8. Lipitor 80 mg p.o. at bedtime. 9. Ferrous sulfate 325 mg p.o. daily. 10. Oxybutynin 5 mg p.o. twice daily. ALLERGIES: ALLERGIC TO PENICILLIN. DISCHARGE PLAN: The patient is to follow up with Dr. Melara in 2 to 3 days, Dr. Palacios in 10 days, and to follow up with his primary care physician, Dr. Ian Brown, in 1 week. BRIEF COURSE DURING HOSPITALIZATION: The patient initially got admitted on the 17 of May with confusion. He was in fact found driving in the wrong direction down at [facility] in [place]. Initial evaluation in the ER revealed a temperature of 101.5 degrees. The patient has known history of prostate cancer and was suspected to have obstructive uropathy. He has had a Greco catheter placed. His blood cultures revealed E coli bacteremia, resistant to quinolones and ampicillin with similar sensitivity profile from his urine culture. He has had consultation with Dr. Palacios for Infectious Disease and Dr. Melara for Urology. The patient needs to continue ceftriaxone until May 29. He needs to continue his Greco catheter until he is seen by Dr. Melara in his clinic for a voiding trial. He is otherwise hemodynamically stable. He is currently walking in the hallway. He is tolerating oral solid diet. Please see a [id number] documentation for the day of discharge on [employer]. [facility] will be setting up his ceftriaxone infusions at home. Job ID: [id number]
--- NOTE | 2020-05-25 23:13 | PQF ---
CLINICAL DOCUMENTATION CLARIFICATION FORM: Dear : __Jackelyn Olivera MD Date / Time: __05/26/2020 Please exercise your independent, professional judgment in responding to the clarification form. Clinical indicators are provided on the bottom of this form for your review Please check appropriate box(es): [ ] UTI is a complication of previous nephrostomy tube/stent [ x ] UTI is not a complication of previous nephrostomy tube/stent [ ] Other diagnosis [ ] Unable to determine Physician Signature: Date/Time: For continuity of documentation, please document condition throughout progress notes and discharge summary. Thank You To be completed by CDI/Coding staff for physician review: Present Clinical Indicators - Signs / Symptoms / Labs Results and Location in Medical Record [ x ] Sepsis, urinary tract infection, Hx of prostate cancer DS, 05/24, Jackelyn Olivera MD [ x ] Urine culture grew E.coli, resistant to ampicillin and quinolones DS, 05/24, Jackelyn Olivera MD [ x ] Bilateral hydronephrosis DS, 05/24, Jackelyn Olivera MD [ x ] He has had a Greco catheter placed DS, 05/24, Jackelyn Olivera MD [ x] Associated with the stents in the persistence of some element of obstruction, right and left side Consultation, 05/20, Philip Singer MD Present Risk Factors Results and Location in Medical Record [ x ] Bilateral ureteral stent DS, 05/24, Jackelyn Olivera MD [ x ] Hx of prostate cancer DS, 05/24, Jackelyn Olivera MD [ x ] Advanced age 75 DS, 05/24, Jackelyn Olivera MD Present Treatments Results and Location in Medical Record [ x ] Urology consult, Consultation, 05/20, Philip Singer MD [ x ] Vancomycin.IV 05/17 [ x] Rocephin.IV OCT, 05/17 CDS/Patient Companion Signature: Joseykatrin Nelly Phone #: [phone] Date/Time:_05/26 This is a permanent part of the Medical Record [facility]
--- NOTE | 2020-06-01 16:22 | EKG ---
Test Reason : Blood Pressure : / mmHG Vent. Rate : 078 BPM Atrial Rate : 078 BPM P-R Int : 154 ms QRS Dur : 088 ms QT Int : 358 ms P-R-T Axes : 048 060 050 degrees QTc Int : 408 ms Normal sinus rhythm Normal ECG Confirmed by WILLIE SANTOS DO ([id number]), international editorial producer MITRA DENTON ([id number]) on 06/01/2020 4:22:22 PM Referred By: Confirmed By:WILLIE SANTOS DO
== END 2020-05-24 16:59 | disposition home or self-care (01) | DRG 871 ==
LOC: ERS 12:55 → 2NO 17:04 → T4-A 05-23 19:04
PROVIDERS: ADMIT Family Medicine; ATTEND Family Medicine
PROC: 02HV33Z Insertion of Infusion Device into Superior Vena Cava, Percutaneous Approach (ICD-10-PCS; principal; 2020-05-21)
PROC: B5181ZA Fluoroscopy of Superior Vena Cava using Low Osmolar Contrast, Guidance (ICD-10-PCS; 2020-05-21)
PROC: B548ZZA Ultrasonography of Superior Vena Cava, Guidance (ICD-10-PCS; 2020-05-21)
DX: A41.51 Sepsis due to Escherichia coli [E. coli] (principal); G93.41 Metabolic encephalopathy; N17.9 Acute kidney failure, unspecified; N13.6 Pyonephrosis; R44.3 Hallucinations, unspecified; I25.10 Atherosclerotic heart disease of native coronary artery without angina pectoris; D63.1 Anemia in chronic kidney disease; R65.20 Severe sepsis without septic shock; F32.9 Major depressive disorder, single episode, unspecified; Z20.828 Contact with and (suspected) exposure to other viral communicable diseases; N18.2 Chronic kidney disease, stage 2 (mild); E87.5 Hyperkalemia; D64.9 Anemia, unspecified; K57.30 Diverticulosis of large intestine without perforation or abscess without bleeding; Z85.46 Personal history of malignant neoplasm of prostate; Z88.0 Allergy status to penicillin; Z93.6 Other artificial openings of urinary tract status; Z87.891 Personal history of nicotine dependence; Z95.5 Presence of coronary angioplasty implant and graft
CPT/HCPCS: 36415; 36569; 70450; 70551; 71045; 74176; 76770; 80048; 80053; 81003; 81015; 82274; 82550; 83605; 84153; 84484; 85025; 87040; 87077; 87086; 87149; 87186; 87635; 93005; 93306; 96365; 96366; 96367; C1751; J0692; J0696; J1644; J1956; J3370; J3490; U0003

== ENCOUNTER 2020-06-03 11:14 | Inpatient (IN) | payer MEDICARE, BC, OTHER ==
[2020-06-03 11:48] LABS: #Eosinphils 0.1 thou/uL (0.0-0.7); #Lymphocytes 0.7 thou/uL (1.20-3.40); #Monocytes 1.1 thou/uL (0.11-0.59); %Eosinophils 0.9 % (0.0-10.0); %Lymphocytes 4.3 % (21.0-51.0); %Monocytes 7.6 % (0.0-10.0); %Neutrophils 87.1 % (42.0-75.0); Hemoglobin 8.4 g/dL (14.0-18.0); Mean Corpuscular Hemoglobin 28.9 pg (27.0-31.0); Mean Corpuscular Volume 90.3 fL (78.0-98.0); Mean Platelet Volume 6.7 fL (7.4-10.4); Platelet Count 694 thou/uL (130-400); RBC Distribution Width 15.5 % (11.5-14.5); White Blood Cell (WBC) Count 14.9 thou/uL (4.8-10.8)
[2020-06-03 12:17] LABS: ALT (SGPT) 49 U/L (8-55); AST (SGOT) 45 U/L (5-34); Albumin 2.9 g/dL (3.4-4.8); Alkaline Phosphatase 84 U/L (40-110); Anion Gap 21 mmol/L (10-20); Bilirubin, Total 0.3 mg/dL (0.2-1.2); Calc. Creatinine Clearance 0 mL/min (70-130); Calcium 8.7 mg/dL (7.8-10.44); Carbon Dioxide 14 mmol/L (23-31); Chloride 104 mmol/L (98-107); Estimated GFR-MDRD 8; Globulin 4.5 g/dL (2.4-3.5); Glucose 98 mg/dL (83-110); Potassium 5.6 mmol/L (3.5-5.1); Protein, Total 7.4 g/dL (5.8-8.1); Sodium 133 mmol/L (136-145)
[2020-06-03 12:28] LABS: BUN (Urea Nitrogen) 137 mg/dL (8.4-25.7)
[2020-06-03 14:29] LABS: Bacteria/HPF 2+ HPF (None Seen); Bilirubin Negative (Negative); Blood, Urine 3+ (Negative); Clarity Extra Turbid (Clear); Glucose, Urine (Dipstick) Normal (Negative); Ketone, Urine Negative (Negative); Leukocyte 500 Leu/uL (Negative); Nitrite Negative (Negative); Protein, Urine (Dipstick) 100 mg/dL (Neg-Trace); RBC/HPF Greater than 50 HPF (0-3); Specific Gravity, Urine 1.011 (1.002-1.036); Squamous Epithelial None Seen HPF (0-3); Urobilinogen Normal mg/dL (Less than 2); WBC/HPF Greater than 50 HPF (0-3); pH, Urine 5.5 (5.0-9.0)
[2020-06-03 14:31] LABS: Yeast-Budding 2+ HPF (None Seen)
[2020-06-03] MEDS ORDERED: Sodium Chloride 0.9% 1,000 ML IV SCH ×2 (14:45)
[2020-06-03] MEDS ORDERED: Furosemide 40 MG/4 ML VIAL SLOW IVP SCH (15:00)
[2020-06-03] MEDS ORDERED: cefTRIAXone\\ROCEPHIN 1 GM in Sodium Chloride 0.9% 100 ML IVPB SCH (15:00)
[2020-06-03] MEDS ORDERED: Sodium Chloride 0.9% 500 ML IV SCH (15:00)
[2020-06-03] MEDS ORDERED: Heparin 5,000 UNITS/ML VIAL SC SCH (15:00)
[2020-06-03] MEDS ORDERED: Sodium Bicarbonate 150 MEQ in Dextrose 5% in Water 1,000 ML IV ONE (15:15)
--- NOTE | 2020-06-03 15:18 | CT ---
CT Abdomen Pelvis WO Con History: Obstructive uropathy Comparison: CT abdomen and pelvis May 18, 2020 Findings: Lung bases are clear. No pericardial effusion. Extensive retroperitoneal periaortic adenopa thy of the chest. Severe bilateral hydroureteronephrosis with indwelling double-J ureteral stents. Proximal component o f both stents are at the ureteropelvic junctions. The distal portions are within the urinary bladder without kinking. Extensive perinephric stranding, similar to the comparison exam. Presumed to be metastatic retroperit solorzano periaortic lymph nodes are similar to slightly enlarged. Extensive sigmoid diverticular disease without active current inflammation. Bulky metastatic iliac lymph nodes are present. Bilateral hip arthroplasties. Impression: 1. Similar appearance of the obstructive uropathy with indwelling ureteral stents which may be malfun ctioning as there is continued high-grade hydroureteronephrosis and perinephric stranding. 2. Mildly progressive metastatic retroperitoneal adenopathy.
[2020-06-03] MEDS ORDERED: Amlodipine 10 MG TAB PO SCH (17:00)
[2020-06-03 18:07] LABS: Potassium, Urine 15.6 mmol/L
[2020-06-03] MEDS ORDERED: Vancomycin HCl 1.25 GM in Sodium Chloride 0.9% 250 ML 250 ML IVPB SCH (18:30)
[2020-06-03 19:32] LABS: Anion Gap 20 mmol/L (10-20); Calc. Creatinine Clearance 13 mL/min (70-130); Calcium 8.5 mg/dL (7.8-10.44); Carbon Dioxide 15 mmol/L (23-31); Chloride 106 mmol/L (98-107); Estimated GFR-MDRD 9; Glucose 113 mg/dL (83-110); Potassium 5.2 mmol/L (3.5-5.1); Sodium 136 mmol/L (136-145)
[2020-06-03 19:43] LABS: BUN (Urea Nitrogen) 126 mg/dL (8.4-25.7)
--- NOTE | 2020-06-03 20:14 | HP ---
CHIEF COMPLAINT: "I'm not feeling well." HISTORY OF PRESENT ILLNESS: The patient is a 75-year-old male, with past medical history of bladder/prostate cancer, on radiation therapy; bilateral hydronephrosis, status post stent placement; and sepsis due to urinary tract infection which was treated two weeks ago with ceftriaxone and the patient was discharged with a PICC line under the care of Dr. Palacios. The patient reportedly finished the course of the antibiotics on Sunday and had a followup appointment with Dr. Palacios today. The patient was found to be mildly confused and his laboratory studies revealed elevated creatinine level compared to the patient's baseline. The patient was sent to the ER for further evaluation. At this time, the patient is complaining of feeling weak, but otherwise does not have any specific complaints. He is alert and oriented x2, and some of the history was obtained from his . Denies fever, chills, abdominal pain, shortness of breath, or dizziness. The patient complains of difficulty urinating over the past few days. REVIEW OF SYSTEMS: Negative, except as noted in the HPI. PAST MEDICAL HISTORY: As noted above. SURGICAL HISTORY: Bilateral ureteric stents and cardiac stents in December of 2018. SOCIAL HISTORY: The patient drinks socially and he is a former smoker. ALLERGIES: THE PATIENT IS ALLERGIC TO PENICILLIN. FAMILY HISTORY: Noncontributory for his current presentation. PHYSICAL EXAMINATION: GENERAL: The patient is alert and oriented x2. HEENT: Head is normocephalic and atraumatic. Extraocular muscles are intact. NECK: Supple. CHEST: Clear to auscultation bilaterally. CARDIOVASCULAR: Showed normal S1, S2, regular rate and rhythm, no murmurs, rubs, or gallops. ABDOMEN: Soft and slightly tender in the lower abdomen. EXTREMITIES: Showed no edema. Neurologic: Showed normal cranial nerves 2 through 12 and no focal motor or sensory deficits. LABORATORY DATA: CBC revealed a leukocytosis with WBC count of 14.9 with left shift. It also showed mild anemia with hemoglobin of 8.4. BMP revealed sodium level 133, potassium 5.6, carbon dioxide 14, BUN 137, and creatinine of 6.5. Anion gap was elevated at 21. ASSESSMENT: 1. Acute renal failure. 2. Acute metabolic encephalopathy, likely related to uremia. 3. Sepsis. 4. Urinary tract infection. 5. Hyponatremia. 6. Hyperkalemia. 7. Anion gap metabolic acidosis. 8. History of prostate cancer. 9. History of obstructive uropathy. PLAN: 1. The patient will be admitted to the hospital. We will initiate treatment for sepsis, failed outpatient ceftriaxone with meropenem and vancomycin with pharmacy to renally dose the medications. Follow urine culture results. 2. The patient will be started on IV fluids and bicarbonate and a single dose of Lasix will be administered. Follow BMP q.[address] scan of the chest to assist for any obstruction. This was discussed with Dr. Abraham. We will insert a Gerco catheter for accurate intake and output. 4. Administer Kayexalate to assist in managing hyperkalemia. 5. Subcu heparin for DVT prophylaxis. Job ID: [id number] MTDD
[2020-06-03] MEDS: Meropenem 500 MG in Sodium Chloride 0.9% 100 ML IVPB SCH (20:36)
[2020-06-03] MEDS: Oxybutynin 5 MG TAB PO SCH (20:36)
[2020-06-03] MEDS: Famotidine 20 MG TAB PO SCH (20:36)
[2020-06-03] MEDS: Atorvastatin Calcium 40 MG TAB PO SCH (20:37)
[2020-06-03] MEDS ORDERED: Vancomycin 1 GM in Premix Bag 1 BAG IVPB SCH (21:00)
[2020-06-03] MEDS: Acetaminophen 325 MG TAB PO PRN (23:20)
--- NOTE | 2020-06-03 23:32 | CON ---
DATE OF CONSULTATION: CONSULTING PHYSICIAN: Dr. Payal Avila on behalf of Dr. Abraham. REASON FOR CONSULTATION: Acute on chronic kidney disease. REQUESTING PHYSICIAN: ER physician. IMPRESSION: 1. Acute on chronic kidney disease, this is more or less in the context of obstructive uropathy rising from the blockage of the J-stent, resulting in bilateral hydronephrosis. 2. Hyperkalemia from problem #1. 3. Mild hyponatremia. 4. Metabolic acidosis. PLAN: 1. Renally dose all medications, severely compromised GFR. 2. This is more or less urologic emergency. Therefore, we will strongly recommend getting urologist, Dr. Melara on the case for review of the obstruction. 3. Avoid potentially nephrotoxic agents. 4. Consider bicarb based infusion to address the metabolic acidosis as well as the hyperkalemia. 5. Please recommend holding the lisinopril for now. HISTORY OF PRESENT ILLNESS: History is that of a 75-year-old gentleman, recently admitted for UTI and sepsis sometime last month and then noted with a creatinine of about 1.7 with CKD stage 3, who presented here with progressively worsening generalized weakness and noted to have elevated creatinine above 6 as well as potassium above 5. With evidence of metabolic acidosis, necessitating the renal consultation. Initial clinical evaluation did review evidence of bilateral hydronephrosis with the J-stents, likely obstructive. PAST MEDICAL HISTORY: Significant for sepsis, chronic kidney disease stage 3, prostate carcinoma, coronary artery disease status post cardiac stents, and depression. MEDICATIONS: Reviewed as documented on [facility]. ALLERGIES: TO PENICILLIN. FAMILY HISTORY: Hypertension. SOCIAL HISTORY: No alcohol. No tobacco. No illicit drug use. REVIEW OF SYSTEMS: As documented in the body of the history. All the other systems were found not to be significantly related to present illness. PHYSICAL EXAMINATION: VITAL SIGNS: Noted with the following vital signs; afebrile, temperature 98.9, pulse 78, respiratory rate of 18, O2 sats of 97% to 100%, and blood pressure 127/55. HEENT: Unremarkable. CARDIOVASCULAR SYSTEM: First and second heart sounds were heard. RESPIRATORY SYSTEM: Clear to auscultation. DIGESTIVE SYSTEM: Revealed a positive bowel sounds. EXTREMITIES: No peripheral edema. SKIN: No new gross rash. LYMPHATICS: No peripheral lymphadenopathy. SUMMARY: A 75-year-old gentleman with severe acute on chronic kidney disease in the context of obstructive uropathy. Thank you for this consultation. We will follow with you. Job ID: [id number]
[2020-06-04 04:11] LABS: #Eosinphils 0.2 thou/uL (0.0-0.7); #Lymphocytes 0.5 thou/uL (1.20-3.40); #Monocytes 0.9 thou/uL (0.11-0.59); #Neutrophils 11.2 thou/uL (1.40-6.50); %Eosinophils 1.3 % (0.0-10.0); %Monocytes 7.3 % (0.0-10.0); %Neutrophils 87.4 % (42.0-75.0); Hemoglobin 7.7 g/dL (14.0-18.0); Mean Corpuscular HGB CONC 33.7 g/dL (32.0-36.0); Mean Corpuscular Hemoglobin 30.2 pg (27.0-31.0); Mean Corpuscular Volume 89.3 fL (78.0-98.0); Mean Platelet Volume 6.1 fL (7.4-10.4); Platelet Count 615 thou/uL (130-400); RBC Distribution Width 15.1 % (11.5-14.5); Red Blood Cell (RBC) Count 2.57 mill/uL (4.70-6.10); White Blood Cell (WBC) Count 12.8 thou/uL (4.8-10.8)
[2020-06-04 04:34] LABS: Albumin 2.6 g/dL (3.4-4.8); Anion Gap 18 mmol/L (10-20); Calc. Creatinine Clearance 13 mL/min (70-130); Calcium 8.2 mg/dL (7.8-10.44); Carbon Dioxide 19 mmol/L (23-31); Chloride 105 mmol/L (98-107); Estimated GFR-MDRD 9; Glucose 119 mg/dL (83-110); Phosphorus 7.9 mg/dL (2.3-4.7); Potassium 4.7 mmol/L (3.5-5.1); Sodium 137 mmol/L (136-145)
[2020-06-04 04:45] LABS: BUN (Urea Nitrogen) 126 mg/dL (8.4-25.7); BUN/Creatinine Ratio 19.94
[2020-06-04] MEDS: Enoxaparin Sodium 30 MG/0.3 ML SYRINGE SC SCH ×2 (08:44→08:51)
[2020-06-04] MEDS: Aspirin Chewable 81 MG TAB PO SCH (08:45)
[2020-06-04] MEDS: Oxybutynin 5 MG TAB PO SCH ×2 (08:45→20:07)
[2020-06-04] MEDS ORDERED: FLU VACC QS2020-21(65YR UP)/PF 240 MCG/0.7 ML SYRINGE IM ONE (09:00)
[2020-06-04] MEDS ORDERED: Amlodipine 10 MG TAB PO SCH (09:00)
[2020-06-04] MEDS: Lorazepam 1 MG TAB PO SCH ×2 (09:41→22:09)
[2020-06-04] MEDS: Amlodipine 10 MG TAB PO SCH (10:09)
[2020-06-04] MEDS ORDERED: Fluconazole In NaCl,Iso-Osm 100 MG in Premix Bag 1 BAG IVPB SCH ×2 (15:00→18:00)
[2020-06-04] MEDS: Clopidogrel Bisulfate 75 MG TAB PO SCH (16:59)
--- NOTE | 2020-06-04 17:50 | PDOC.HOSPP ---
- Subjective Encounter Date: 06/04/20 Encounter Time: 10:15 - Objective Vital Signs & Weight: Vital Signs (12 hours) Temp Pulse Pulse Pulse Resp BP BP 06/04/20 16:58 98.6 F 73 15 06/04/20 12:00 98.2 F 75 18 06/04/20 11:34 98.5 F 76 19 06/04/20 10:09 83 06/04/20 09:07 79 133/62 147/70 H 06/04/20 09:06 71 79 133/62 147/70 H 06/04/20 08:45 83 06/04/20 08:00 97.9 F 82 19 06/04/20 07:34 97.5 F L 83 14 BP BP Pulse Ox 06/04/20 16:58 134/64 97 06/04/20 12:00 131/75 98 06/04/20 11:34 134/65 97 06/04/20 10:09 06/04/20 09:07 06/04/20 09:06 06/04/20 08:45 06/04/20 08:00 148/62 H 97 06/04/20 07:34 144/72 H 97 Weight Admit Weight 189 lb 9.6 oz Weight 186 lb 4.8 oz I&O: 06/03/20 06/04/20 06/05/20 06:59 06:59 06:59 Intake Total 1150 Output Total 1750 Balance -600 Result Diagrams: 06/04/20 03:57 06/04/20 03:57 Hospitalist ROS - Review of Systems Cardiovascular: denies: chest pain, palpitations, orthopnea, paroxysmal noc. dyspnea, edema, light headedness, other Gastrointestinal: denies: nausea, vomiting, abdominal pain, diarrhea, constipati on, melena, hematochezia, other Genitourinary: denies: dysuria, frequency, incontinence, hematuria, retention, other - Medication Medications: Active Medications Generic Name Dose Route Start Last Admin Trade Name Freq PRN Reason Stop Dose Admin Acetaminophen 650 mg 06/03/20 14:54 06/03/20 23:20 Acetaminophen 325 Mg Tab PO 650 mg Q4H PRN Administration Headache/Fever/Mild Pain (1-3) Amlodipine Besylate 10 mg 06/04/20 09:00 06/04/20 10:09 Amlodipine 10 Mg Tab PO Not Given DAILY [facility] Aspirin 81 mg 06/04/20 09:00 06/04/20 08:45 Aspirin Chewable 81 Mg Tab PO 81 mg DAILY [facility] Administration Atorvastatin Calcium 40 mg 06/03/20 21:00 06/03/20 20:37 Atorvastatin Calcium 40 Mg Tab PO 40 mg HS CHRISTINE Administration Clopidogrel Bisulfate 75 mg 06/04/20 17:00 06/04/20 16:59 Clopidogrel Bisulfate 75 Mg Tab PO 75 mg 1700 CHRISTINE Administration Enoxaparin Sodium 30 mg 06/04/20 09:00 06/04/20 08:51 Enoxaparin Sodium 30 Mg/0.3 Ml Syringe SC Not Given 0900 CHRISTINE Famotidine 20 mg 06/03/20 21:00 06/03/20 20:36 Famotidine 20 Mg Tab PO 20 mg QPM CHRISTINE Administration Meropenem 500 mg/ Sodium 100 mls @ 200 mls/hr 06/03/20 20:00 06/03/20 20:36 Chloride IVPB 100 mls Q24HR CHRISTINE Administration Lorazepam 1 mg 06/04/20 09:00 06/04/20 09:41 Lorazepam 1 Mg Tab PO 1 mg BID CHRISTINE Administration Metoprolol Succinate 50 mg 06/04/20 09:00 06/04/20 09:40 Metoprolol Succinate Xl 50 Mg Tab PO 50 mg DAILY CHRISTINE Administration Oxybutynin Chloride 5 mg 06/03/20 21:00 06/04/20 08:45 Oxybutynin 5 Mg Tab PO 5 mg BID CHRISTINE Administration Sertraline HCl 100 mg 06/04/20 17:00 06/04/20 16:59 Sertraline Hcl 100 Mg Tab PO 100 mg 1700 CHRISTINE Administration - Exam Eye - other findings: Pale conjunctiva Neck: negative: supple, symmetric, no JVD, no thyromegaly, no lymphadenopathy, no carotid bruit, JVD Heart: negative: RRR, no murmur, no gallops, no rubs, normal peripheral pulses, irregular, diminshed peripheral pulses, murmur present, II/IV, III/IV Respiratory: negative: CTAB, no wheezes, no rales, no ronchi, normal chest expansion, no tachypnea, normal percussion, rales, rhonchi, tachypneic, wheezes Gastrointestinal: negative: soft, non-tender, non-distended, normal bowel sounds, no palpable masses, no hepatomegaly, no splenomegaly, no bruit, no guarding, no rigidity, tender to palpation, distended, diminished bowl sounds, voluntary guarding Hosp A/P (1) UTI (urinary tract infection) Status: Acute Qualifiers: (2) Anemia Code(s): D64.9 - ANEMIA, UNSPECIFIED Status: Chronic (3) CAD (coronary artery disease) Code(s): I25.10 - ATHSCL HEART DISEASE OF [place] CORONARY ARTERY W/O ANG PCTRS Status: Chronic Qualifiers: (4) Dyslipidemia Code(s): E78.5 - HYPERLIPIDEMIA, UNSPECIFIED Status: Chronic (5) History of prostate cancer Code(s): Z85.46 - PERSONAL HISTORY OF MALIGNANT NEOPLASM OF PROSTATE Status: Chronic (6) ALYSON (acute kidney injury) Code(s): N17.9 - ACUTE KIDNEY FAILURE, UNSPECIFIED Status: Resolved - Plan Patient has double-J stents bilaterally. Significant elevated creatinine. Nephrology and urology consulted. Will repeat renal ultrasound on Sunday. Will continue IV antibiotics for now will consult infectious disease. Patient's beta-brandon's dose decreased we will check an H&H now and labs in the morning. He may require transfusion. Urology has added fluconazole. Celexa also has been added. By urology he may require stent exchange.
[2020-06-04] MEDS: Meropenem 500 MG in Sodium Chloride 0.9% 100 ML IVPB SCH (18:25)
[2020-06-04 18:26] LABS: Hemoglobin 8.6 g/dL (14.0-18.0)
[2020-06-04 18:30] LABS: SARS-CoV-2 MS2 Positive; SARS-CoV-2 N Gene Negative; SARS-CoV-2 S Gene Negative; SARS-CoV-2 by NAA Not Detected (NotDetected); SARS-CoV-2 orf1ab Negative
[2020-06-04 18:44] LABS: Vancomycin, Random 17.2 ug/mL (See Comment)
[2020-06-04] MEDS ORDERED: Vancomycin 1 GM in Premix Bag 1 BAG IVPB SCH (19:00)
--- NOTE | 2020-06-04 20:05 | CON ---
DATE OF CONSULTATION: 06/04/2020 REASON FOR CONSULTATION: Hydronephrosis. CHIEF COMPLAINT: Confusion. HISTORY OF PRESENT ILLNESS: This is a 75-year-old male with a history of metastatic prostate cancer diagnosed August 22, 2019, pathology Michael 4+5 and 4+4. In August, he developed worsening symptoms and was admitted to [place], where he was found to be in urinary retention with bilateral hydronephrosis. Secondary to locally advanced prostate cancer, he had a prolonged hospital course, at that time requiring bilateral nephrostomy tubes and Greco catheter. Bone scan at that time was negative. He had a 6-month Lupron in September 2019. On November 17, he underwent internalization of both nephrostomy tubes. He has been having issues with recurrent urinary retention despite voiding well in the office and recurrent infections secondary to this. He completed radiation in summer 2019 and is planning to meet with Dr. Bhatti to discuss Taxotere, however has been unable to do so as he has been in the hospital over the past several weeks. He was recently hospitalized at the end of April for retention and sepsis. I saw him in my office beginning of this week, at which point he voided very well with no residual urine and I would plan to see him next Sunday for repeat postvoid residual; however, he was admitted yesterday for confusion and acute kidney injury. Greco catheter was placed. In speaking with the patient, he is very lethargic and does not answer questions appropriately. His is at his bedside, who tells me that he has not been eating and has been very nonchalant about his care. She is very concerned about underlying neurologic disease as he has had abnormal behavior for the past year or so. PAST MEDICAL HISTORY: Prostate cancer, hydronephrosis, urinary retention, recurrent infections, and coronary artery disease. PAST SURGICAL HISTORY: Nephrostomy tubes with internalization as mentioned above, cardiac stents. SOCIAL HISTORY: Former smoker. No substance abuse. ALLERGIES: PENICILLIN. FAMILY HISTORY: Reviewed, noncontributory. REVIEW OF SYSTEMS: Twelve-point review of systems is negative except as mentioned in my HPI. PHYSICAL EXAMINATION: VITAL SIGNS: Afebrile. Vitals stable. GENERAL: No acute distress. HEENT: Head, normocephalic and atraumatic. Extraocular movements intact. Sclerae anicteric. NECK: Supple. Trachea midline. LUNGS: Unlabored breathing. Symmetric chest expansion. HEART: Regular rate and rhythm. ABDOMEN: Soft, nontender, and nondistended. No flank tenderness. No suprapubic tenderness. Greco catheter in good position, draining mildly hematuric urine. SKIN: Warm and dry. EXTREMITIES: Without clubbing, cyanosis, or edema. NEUROLOGIC: Lethargic. Oriented to person only. PSYCHIATRIC: Abnormal mood. LABORATORY DATA: Reviewed. White count 14.9 yesterday, 12.8 today. Creatinine 6.5 yesterday, 6.32 today. Urinalysis, positive leukocyte, negative nitrite. Culture pending. Prelim, Jasmyne albicans. IMAGING DATA: I personally reviewed his CT scan, which does show bilateral hydronephrosis with a distended bladder; although, his bladder is small capacity. ASSESSMENT AND PLAN: Urinary retention, acute kidney injury secondary to bladder outlet obstruction, prostate cancer with increasing abdominal lymphadenopathy. Greco catheter to remain. If he fails to improve as far as creatinine or signs of infection, we will need to replace his stents. Otherwise, depending on his progress for the weekend, we may replace them early next week as it is time for them to be exchanged. I anticipate that his creatinine will improve with bladder drainage as it was normal at his last hospitalization. Adding fluconazole to his therapy. He is now outside the window for his Lupron therapy, which needs to be continued. He did not show for his injection, May 06. We will need to resume casodex unless we can use Lupron while inpatient. He does need close followup with Oncology. Greater than 80 minutes was spent in the patient's care, half of which was spent [id number]. Job ID: [id number] [facility]
[2020-06-04] MEDS: Fluconazole In NaCl,Iso-Osm 100 MG in Premix Bag 1 BAG IVPB SCH (20:06)
[2020-06-04] MEDS: Famotidine 20 MG TAB PO SCH (20:07)
[2020-06-04] MEDS: Atorvastatin Calcium 40 MG TAB PO SCH (20:07)
--- NOTE | 2020-06-04 22:31 | CON ---
DATE OF CONSULTATION: REASON: Worsening renal function, recent episode of pyelonephritis with obstruction, and locally metastatic prostate cancer. HISTORY OF PRESENT ILLNESS: 75-year-old history of bladder prostate cancer with radiation therapy with bilateral hydronephrosis previously managed with percutaneous stents and then transition to internal stents, presented initially at the end of April with altered mental state, brought by family, had not had any vomiting. There was evidence of invasive UTI with pyelonephritis. This was found to be secondary to Escherichia coli with resistance to quinolones. Patient was discharged on Rocephin through a PICC line. Creatinine was down to 1.35 at the discharge date and he completed that I think of 2 weeks of therapy, and I saw him in clinic yesterday and had noticed that there had been an increase in his creatinine to 5.64, and proceeded to admit the patient to the hospital. He has had a repeat noncontrast abdomen and pelvis CT, and this demonstrated obstructive uropathy with likely malfunctioning stents and continuing high-grade hydroureteronephrosis, perinephric stranding, and mildly progressive metastatic retroperitoneal adenopathy. Patient feels unwell, a little bit confused. No vomiting. Some back pain. No abdominal pain. No genitourinary symptoms otherwise. The Greco catheter had been removed recently by Dr. Melara in the outpatient setting after a voiding trial. MEDICAL HISTORY: Locally metastatic prostate cancer with bilateral ureteral obstruction, hydronephrosis, pyelonephritis due to Escherichia coli treated, prior coronary artery disease, cardiac stents, gastric ulcer, depression, prior nephrostomy tubes and then stents. ALLERGIES: PENICILLIN WITH RASH. FAMILY HISTORY: Hypertension. SOCIAL HISTORY: Never smoker. Retired. MEDICATIONS: 1. Norvasc. 2. Aspirin. 3. Lipitor. 4. Casodex. 5. Plavix. 6. Lovenox. 7. Diflucan. 8. Ativan. 9. Meropenem. 10. Toprol. 11. Ditropan. 12. Vancomycin. PHYSICAL EXAMINATION: VITAL SIGNS: He has been afebrile. BP 130/70, heart rate 75, respiratory rate 18, O2 saturation 98 on room air. SKIN: No areas of skin breakdown. The patient has a peripheral IV access, and indwelling Greco catheter is seen. No lymphadenopathy. HEENT: Ocular movements conjugate. Oral cavity with few missing teeth. NECK: Supple. LUNGS: Symmetric air entry. No crackles or wheezing. CARDIAC: S1, S2. Regular rate without murmurs. ABDOMEN: Mildly distended, not tender. No bladder distention. EXTREMITIES: No joint inflammatory activity. 1+ edema lower extremities. Pulses 1+ in dorsalis pedis. Able to move all 4 extremities equally, little bit weak. NEURO: Awake, knows his name and date, and location. Recollection is a bit limited, little bit of word-finding problem or difficulty. DIAGNOSTIC STUDIES: LABORATORY RESULTS: Sodium 137, creatinine is down to 6.32 from admission when it was 6.5, potassium is down to 4.7, phosphorus 7.9, albumin 2.6. Urinalysis greater than 50 wbcs. Microbiology with Jasmyne albicans isolated, but blood culture thus far no growth. Urine culture, no growth at 48 hours from May 31. ASSESSMENT AND PLAN: Coronary artery disease, locally invasive prostate cancer with radiation therapy, on Casodex with persistence of obstruction, bilateral percutaneous stents, which were replaced by internal stents, bilateral hydroureteronephrosis persistence, recent admission with pyelonephritis and hydronephrosis and some element of urinary retention. The patient was managed with Greco catheter, which led to improvement in creatinine from 1.8 to 1.3. Deterioration of creatinine up to 6.5 with question of dysfunction or malfunction of the stents due to the obstructive uropathy and malignancy. The patient had a Greco catheter placed. Nephrology has been consulted, so they recommended consultation with Dr. Melara to review the options for management of the obstruction. We will go ahead and discontinue vancomycin and probably discontinue meropenem as well in another day or two, and maintain Diflucan only and then wait for Dr. Melara to give his opinion as to the options for management for the obstruction. Job ID: [id number]
[2020-06-05 04:51] LABS: #Eosinphils 0.2 thou/uL (0.0-0.7); #Lymphocytes 0.9 thou/uL (1.20-3.40); %Basophils 0.1 % (0.0-1.0); %Eosinophils 1.5 % (0.0-10.0); %Lymphocytes 5.9 % (21.0-51.0); %Monocytes 6.7 % (0.0-10.0); %Neutrophils 85.7 % (42.0-75.0); Hemoglobin 8.1 g/dL (14.0-18.0); Mean Corpuscular HGB CONC 33.1 g/dL (32.0-36.0); Mean Corpuscular Hemoglobin 29.5 pg (27.0-31.0); Mean Corpuscular Volume 89.2 fL (78.0-98.0); Mean Platelet Volume 6.3 fL (7.4-10.4); Platelet Count 678 thou/uL (130-400); RBC Distribution Width 15.2 % (11.5-14.5); Red Blood Cell (RBC) Count 2.74 mill/uL (4.70-6.10); White Blood Cell (WBC) Count 15.2 thou/uL (4.8-10.8)
[2020-06-05 05:38] LABS: Albumin 2.7 g/dL (3.4-4.8); Anion Gap 18 mmol/L (10-20); Calc. Creatinine Clearance 12 mL/min (70-130); Calcium 8.3 mg/dL (7.8-10.44); Carbon Dioxide 18 mmol/L (23-31); Chloride 108 mmol/L (98-107); Estimated GFR-MDRD 9; Glucose 89 mg/dL (83-110); Phosphorus 7.8 mg/dL (2.3-4.7); Potassium 5.2 mmol/L (3.5-5.1); Sodium 139 mmol/L (136-145)
[2020-06-05 05:52] LABS: BUN (Urea Nitrogen) 130 mg/dL (8.4-25.7); BUN/Creatinine Ratio 20.44
[2020-06-05] MEDS: Enoxaparin Sodium 30 MG/0.3 ML SYRINGE SC SCH (08:43)
[2020-06-05] MEDS: Oxybutynin 5 MG TAB PO SCH ×2 (08:43→22:05)
[2020-06-05] MEDS: Lorazepam 1 MG TAB PO SCH ×2 (08:43→22:04)
[2020-06-05] MEDS: Amlodipine 10 MG TAB PO SCH (08:43)
[2020-06-05] MEDS: Aspirin Chewable 81 MG TAB PO SCH (08:43)
[2020-06-05] MEDS: Bicalutamide 50 MG TAB PO SCH (08:44)
[2020-06-05 15:25] LABS: SARS-CoV-2 MS2 Positive; SARS-CoV-2 N Gene Negative; SARS-CoV-2 S Gene Negative; SARS-CoV-2 by NAA Not Detected (NotDetected); SARS-CoV-2 orf1ab Negative
--- NOTE | 2020-06-05 17:06 | PDOC.HOSPP ---
- Subjective Encounter Date: 06/05/20 Encounter Time: 17:06 Subjective: Mr. Gardiner was seen today in follow-up of acute kidney injury due to obstructive uropathy. He does not have any complaints today, other than being very drowsy. His tells me this is not unusual for him. - Objective Vital Signs & Weight: Vital Signs (12 hours) Temp Pulse Resp BP Pulse Ox 06/05/20 16:00 98.6 F 72 17 115/58 L 100 06/05/20 12:00 98.2 F 76 16 136/64 98 06/05/20 08:43 74 06/05/20 08:00 98.5 F 79 18 143/65 H 98 Weight Admit Weight 189 lb 9.6 oz Weight 186 lb 4.8 oz I&O: 06/04/20 06/05/20 06/06/20 06:59 06:59 06:59 Intake Total 1810 480 Output Total 4163 1350 Balance -0216 -530 Result Diagrams: 06/09/20 12:10 06/10/20 04:19 Hospitalist ROS - Medication Medications: Active Medications Generic Name Dose Route Start Last Admin Trade Name Freq PRN Reason Stop Dose Admin Acetaminophen 650 mg 06/03/20 14:54 06/03/20 23:20 Acetaminophen 325 Mg Tab PO 650 mg Q4H PRN Administration Headache/Fever/Mild Pain (1-3) Amlodipine Besylate 10 mg 06/04/20 09:00 06/05/20 08:43 Amlodipine 10 Mg Tab PO 10 mg DAILY CHRISTINE Administration Aspirin 81 mg 06/04/20 09:00 06/05/20 08:43 Aspirin Chewable 81 Mg Tab PO 81 mg DAILY CHRISTINE Administration Atorvastatin Calcium 40 mg 06/03/20 21:00 06/04/20 20:07 Atorvastatin Calcium 40 Mg Tab PO 40 mg HS CHRISTINE Administration Bicalutamide 50 mg 06/05/20 09:00 06/05/20 08:44 Bicalutamide 50 Mg Tab PO 50 mg DAILY CHRISTINE Administration Clopidogrel Bisulfate 75 mg 06/04/20 17:00 06/04/20 16:59 Clopidogrel Bisulfate 75 Mg Tab PO 75 mg 1700 CHRISTINE Administration Enoxaparin Sodium 30 mg 06/04/20 09:00 06/05/20 08:43 Enoxaparin Sodium 30 Mg/0.3 Ml Syringe SC 30 mg 0900 CHRISTINE Administration Famotidine 20 mg 06/03/20 21:00 06/04/20 20:07 Famotidine 20 Mg Tab PO 20 mg QPM CHRISTINE Administration Meropenem 500 mg/ Sodium 100 mls @ 200 mls/hr 06/03/20 20:00 06/04/20 18:25 Chloride IVPB 100 mls Q24HR CHRISTINE Administration Fluconazole/Sodium Chloride 50 mls @ 100 mls/hr 06/04/20 18:00 06/04/20 20:06 100 mg/ Device IVPB 50 mls 1800 CHRISTINE Administration Lorazepam 1 mg 06/04/20 09:00 06/05/20 08:43 Lorazepam 1 Mg Tab PO 1 mg BID CHRISTINE Administration Metoprolol Succinate 25 mg 06/05/20 09:00 06/05/20 08:43 Metoprolol Succinate Xl 25 Mg Tab PO 25 mg DAILY CHRISTINE Administration Oxybutynin Chloride 5 mg 06/03/20 21:00 06/05/20 08:43 Oxybutynin 5 Mg Tab PO 5 mg BID CHRISTINE Administration Sertraline HCl 100 mg 06/04/20 17:00 06/04/20 16:59 Sertraline Hcl 100 Mg Tab PO 100 mg 1700 CHRISTINE Administration - Exam Eye: PERRL, anicteric sclera Heart: RRR, no murmur, no gallops, no rubs, normal peripheral pulses Respiratory: CTAB, no wheezes, no rales, no ronchi, normal chest expansion, no tachypnea Gastrointestinal: soft, non-tender, normal bowel sounds, no palpable masses, distended (mildly distended) Extremities: no cyanosis, no edema Hosp A/P (1) Malfunction of nephrostomy tube Code(s): T83.098A - [facility] COMPL OF OTHER URINARY CATHETER, INITIAL ENCOUNTER Status: Acute (2) ALYSON (acute kidney injury) Code(s): N17.9 - ACUTE KIDNEY FAILURE, UNSPECIFIED Status: Acute (3) Metastatic malignant neoplasm to prostate Code(s): C79.82 - SECONDARY MALIGNANT NEOPLASM OF GENITAL ORGANS Status: Chronic (4) CAD (coronary artery disease) Code(s): I25.10 - ATHSCL HEART DISEASE OF [place] CORONARY ARTERY W/O ANG PCTRS Status: Chronic Qualifiers: (5) UTI (urinary tract infection) Status: Acute Qualifiers: - Plan * Acute Kidney injury due to Obstructive Uropathy- the patient's renal function has not improved after Greco placement. He is still making some urine but his creatinine has not improved * I spoke with Dr. Melara today, who plans to replace the STENTs on Sunday * CAD- stable * Prostate Cancer * UTI- continue Diflucan and Meropenem
[2020-06-05] MEDS: Clopidogrel Bisulfate 75 MG TAB PO SCH (18:22)
[2020-06-05] MEDS: Fluconazole In NaCl,Iso-Osm 100 MG in Premix Bag 1 BAG IVPB SCH (18:22)
[2020-06-05] MEDS: Atorvastatin Calcium 40 MG TAB PO SCH (22:04)
[2020-06-05] MEDS: Famotidine 20 MG TAB PO SCH (22:04)
[2020-06-05] MEDS: Meropenem 500 MG in Sodium Chloride 0.9% 100 ML IVPB SCH (22:04)
[2020-06-06 07:11] LABS: Albumin 2.7 g/dL (3.4-4.8); Anion Gap 18 mmol/L (10-20); BUN (Urea Nitrogen) 121 mg/dL (8.4-25.7); BUN/Creatinine Ratio 23.36; Calc. Creatinine Clearance 15 mL/min (70-130); Calcium 8.2 mg/dL (7.8-10.44); Carbon Dioxide 20 mmol/L (23-31); Chloride 109 mmol/L (98-107); Estimated GFR-MDRD 11; Glucose 96 mg/dL (83-110); Potassium 4.8 mmol/L (3.5-5.1); Sodium 142 mmol/L (136-145)
[2020-06-06] MEDS: Amlodipine 10 MG TAB PO SCH (09:22)
[2020-06-06] MEDS: Oxybutynin 5 MG TAB PO SCH ×2 (09:22→21:12)
[2020-06-06] MEDS: Lorazepam 1 MG TAB PO SCH ×2 (09:22→21:12)
[2020-06-06] MEDS: Aspirin Chewable 81 MG TAB PO SCH (09:22)
[2020-06-06] MEDS: Enoxaparin Sodium 30 MG/0.3 ML SYRINGE SC SCH (09:23)
[2020-06-06] MEDS: Bicalutamide 50 MG TAB PO SCH (09:25)
--- NOTE | 2020-06-06 09:47 | ULT ---
ULTRASOUND RETROPERITONEUM COMPLETE: (RENAL) DATE: 06/06/2020 HISTORY: 75 year old male with bilateral obstructive uropathy COMPARISON: Renal ultrasound of 05/20/2020 FINDINGS: The bilateral hydronephrosis is now worse than before, with moderate dilation of bilateral renal susie ecting systems. Portions of ureteral stent visualized in left renal pelvis and right calyx. Greco catheter balloon within empty urinary bladder. Right kidney: 11.5 x 5.5 x 5.5 cm. Left kidney: 11.5 x 6.5 x 6 cm. IMPRESSION: 1) interval worsening of bilateral obstructive uropathy: Interval worsening of now moderate bilateral hydronephrosis. 2) bilateral ureteral stents and Greco catheter.
--- NOTE | 2020-06-06 17:00 | PDOC.HOSPP ---
- Subjective Encounter Date: 06/06/20 Encounter Time: 16:59 Subjective: Mr. Gardiner was seen today in follow-up of acute kidney injury due to obstructive uropathy. He does not have any complaints today. - Objective Vital Signs & Weight: Vital Signs (12 hours) Temp Pulse Resp BP Pulse Ox 06/06/20 15:52 97.9 F 72 18 110/62 99 06/06/20 11:56 98.2 F 78 17 125/58 L 93 L 06/06/20 09:22 81 06/06/20 08:00 97.9 F 75 18 123/63 94 L Weight Admit Weight 189 lb 9.6 oz Weight 184 lb I&O: 06/05/20 06/06/20 06/07/20 06:59 06:59 06:59 Intake Total 1810 480 Output Total 4161 1350 Balance -7664 -058 Result Diagrams: 06/05/20 04:01 06/06/20 06:33 Hospitalist ROS - Medication Medications: Active Medications Generic Name Dose Route Start Last Admin Trade Name Freq PRN Reason Stop Dose Admin Acetaminophen 650 mg 06/03/20 14:54 06/03/20 23:20 Acetaminophen 325 Mg Tab PO 650 mg Q4H PRN Administration Headache/Fever/Mild Pain (1-3) Amlodipine Besylate 10 mg 06/04/20 09:00 06/06/20 09:22 Amlodipine 10 Mg Tab PO 10 mg DAILY CHRISTINE Administration Aspirin 81 mg 06/04/20 09:00 06/06/20 09:22 Aspirin Chewable 81 Mg Tab PO 81 mg DAILY CHRISTINE Administration Atorvastatin Calcium 40 mg 06/03/20 21:00 06/05/20 22:04 Atorvastatin Calcium 40 Mg Tab PO 40 mg HS CHRISTINE Administration Bicalutamide 50 mg 06/05/20 09:00 06/06/20 09:25 Bicalutamide 50 Mg Tab PO 50 mg DAILY CHRISTINE Administration Clopidogrel Bisulfate 75 mg 06/04/20 17:00 06/05/20 18:22 Clopidogrel Bisulfate 75 Mg Tab PO 75 mg 1700 CHRISTINE Administration Enoxaparin Sodium 30 mg 06/04/20 09:00 06/06/20 09:23 Enoxaparin Sodium 30 Mg/0.3 Ml Syringe SC 30 mg 0900 CHRISTINE Administration Famotidine 20 mg 06/03/20 21:00 06/05/20 22:04 Famotidine 20 Mg Tab PO 20 mg QPM CHRISTINE Administration Meropenem 500 mg/ Sodium 100 mls @ 200 mls/hr 06/03/20 20:00 06/05/20 22:04 Chloride IVPB 100 mls Q24HR CHRISTINE Administration Fluconazole/Sodium Chloride 50 mls @ 100 mls/hr 06/04/20 18:00 06/05/20 18:22 100 mg/ Device IVPB 50 mls 1800 CHRISTINE Administration Lorazepam 1 mg 06/04/20 09:00 06/06/20 09:22 Lorazepam 1 Mg Tab PO 1 mg BID CHRISTINE Administration Metoprolol Succinate 25 mg 06/05/20 09:00 06/06/20 09:22 Metoprolol Succinate Xl 25 Mg Tab PO 25 mg DAILY CHRISTINE Administration Oxybutynin Chloride 5 mg 06/03/20 21:00 06/06/20 09:22 Oxybutynin 5 Mg Tab PO 5 mg BID CHRISTINE Administration Sertraline HCl 100 mg 06/04/20 17:00 06/05/20 18:22 Sertraline Hcl 100 Mg Tab PO 100 mg 1700 CHRISTINE Administration - Exam Eye: PERRL, anicteric sclera Heart: RRR, no murmur, no gallops, no rubs, normal peripheral pulses Respiratory: CTAB, no wheezes, no rales, no ronchi, normal chest expansion, no tachypnea Gastrointestinal: soft, non-tender (mildly distended), normal bowel sounds, no palpable masses, no hepatomegaly Extremities: no cyanosis, no edema Hosp A/P (1) Malfunction of nephrostomy tube Code(s): T83.098A - [facility] COMPL OF OTHER URINARY CATHETER, INITIAL ENCOUNTER Status: Acute (2) ALYSON (acute kidney injury) Code(s): N17.9 - ACUTE KIDNEY FAILURE, UNSPECIFIED Status: Acute (3) Metastatic malignant neoplasm to prostate Code(s): C79.82 - SECONDARY MALIGNANT NEOPLASM OF GENITAL ORGANS Status: Chronic (4) CAD (coronary artery disease) Code(s): I25.10 - ATHSCL HEART DISEASE OF [place] CORONARY ARTERY W/O ANG PCTRS Status: Chronic Qualifiers: (5) UTI (urinary tract infection) Status: Acute Qualifiers: - Plan * Acute Kidney injury due to Obstructive Uropathy- his creatinine is a bit lower today, but his renal ultrasound demonstrated worsening hydronephrosis * I anticipate replacement of the Nephrostomy tube STENT's tomorrow * CAD- stable * Prostate Cancer * UTI- continue Diflucan and Meropenem
[2020-06-06] MEDS: Clopidogrel Bisulfate 75 MG TAB PO SCH (17:18)
[2020-06-06] MEDS: Fluconazole In NaCl,Iso-Osm 100 MG in Premix Bag 1 BAG IVPB SCH (17:21)
[2020-06-06] MEDS: Famotidine 20 MG TAB PO SCH (21:11)
[2020-06-06] MEDS: Atorvastatin Calcium 40 MG TAB PO SCH (21:11)
[2020-06-06] MEDS: Meropenem 500 MG in Sodium Chloride 0.9% 100 ML IVPB SCH (21:11)
[2020-06-06] MEDS: Sodium Chloride 0.9% 1,000 ML IV SCH (23:24)
[2020-06-07] MEDS ORDERED: Fentanyl 100 MCG/2 ML VIAL ONE ×2 (08:16→11:15)
[2020-06-07 08:18] LABS: Anion Gap 18 mmol/L (10-20); BUN (Urea Nitrogen) 100 mg/dL (8.4-25.7); Calc. Creatinine Clearance 18 mL/min (70-130); Calcium 8.1 mg/dL (7.8-10.44); Carbon Dioxide 20 mmol/L (23-31); Chloride 110 mmol/L (98-107); Estimated GFR-MDRD 13; Glucose 95 mg/dL (83-110); Potassium 4.6 mmol/L (3.5-5.1); Sodium 143 mmol/L (136-145)
[2020-06-07] MEDS ORDERED: Iothalamate Meglumine 60% 50 ML VIAL FS ONE (08:41)
--- NOTE | 2020-06-07 10:29 | PRG ---
DATE OF SERVICE: 06/07/2020 SUBJECTIVE: No significant events over the weekend. The patient remains lethargic and does not answer questions well this morning. He does give what seems like practiced answers to most of the questions, but is not conversant. I am not able to obtain a reliable review of systems on him today. His is not currently at bedside, but will be here later this morning. OBJECTIVE: VITAL SIGNS: Afebrile, vitals are stable. GENERAL: No acute distress. RESPIRATORY: Unlabored breathing. CHEST: Symmetric chest expansion. HEART: Regular rate and rhythm. ABDOMEN: Soft, nontender, nondistended. No flank tenderness. : Good urine output. No suprapubic tenderness. Greco catheter in good position, draining clear urine. SKIN: Warm and dry. EXTREMITIES: No peripheral edema. LABORATORY DATA: White count 15.2 on June 05. Creatinine 6.5 on admission. This responded slowly, however, dropped to 5.1 yesterday and 4.3 today. IMAGING DATA: Renal ultrasound from yesterday reviewed showing persistent or possibly slightly worsening bilateral hydronephrosis despite Greco catheter drainage. ASSESSMENT AND PLAN: Acute on chronic kidney disease, bilateral hydronephrosis, and metastatic prostate cancer. Given his slowly recovering renal function and residual hydronephrosis, our next step will be to take him to the operating room today for cystoscopy and bilateral stent exchange. I will exchange these for a larger, 7-Ukrainian, stents. This was our tentative plan when the patient, his , and I spoke on Sunday. If his creatinine fails to respond completely or he has residual hydronephrosis over the next 48 hours, he may require replacement of nephrostomy tubes. Rechecking PSA today. If this has been rising, we will need to check testosterone level and consider Oncology consultation. TIME SPENT: 60 minutes spent in patient care, 30 of which were spent direct [id number] with the patient. Job ID: [id number]
[2020-06-07 11:40] LABS: Bilirubin Negative (Negative); Blood, Urine Large (Negative); Glucose, Urine (Dipstick) Negative (Negative); Ketone, Urine Negative (Negative); Leukocyte Small (Negative); Nitrite Negative (Negative); Protein, Urine (Dipstick) 100 mg/dL (Neg-Trace); Urobilinogen 0.2 mg/dL (Less than 2); pH, Urine 6.5 (5.0-9.0)
[2020-06-07] MEDS: Enoxaparin Sodium 30 MG/0.3 ML SYRINGE SC SCH (11:56)
[2020-06-07] MEDS: Aspirin Chewable 81 MG TAB PO SCH (11:56)
[2020-06-07 12:00] LABS: Clarity Turbid (Clear)
[2020-06-07 12:01] LABS: Bacteria/HPF 4+ HPF (None Seen); WBC/HPF Greater Than 50 HPF (0-3)
[2020-06-07] MEDS: Lorazepam 1 MG TAB PO SCH ×2 (12:11→21:20)
[2020-06-07] MEDS: Bicalutamide 50 MG TAB PO SCH (12:12)
[2020-06-07] MEDS: Amlodipine 10 MG TAB PO SCH (12:12)
[2020-06-07] MEDS: Oxybutynin 5 MG TAB PO SCH ×2 (12:13→21:20)
[2020-06-07] MEDS ORDERED: Succinylcholine Chloride 20 MG/ML 10 ml SYRINGE FS ONE (12:33)
[2020-06-07] MEDS ORDERED: PROPOFOL 200 MG/20 ML VIAL ONE (12:33)
[2020-06-07] MEDS ORDERED: Lidocaine 1% PF 5 ML VIAL ONE (12:33)
[2020-06-07] MEDS ORDERED: Acetaminophen/Codeine 30-300mg Tablet PO PRN (14:02)
--- NOTE | 2020-06-07 14:04 | PDOC.HOSPP ---
- Subjective Encounter Date: 06/07/20 Encounter Time: 14:03 Subjective: Mr. Gardiner was seen today in follow-up of acute kidney injury due to obstructive uropathy. He is a bit confused since returning from the procedure, but his says he has confusion off and on at home. He is complaining of bladder pressure and pain in his penis. He is trying to pull at hie catheter. - Objective Vital Signs & Weight: Vital Signs (12 hours) Temp Pulse Pulse Pulse Resp BP BP 06/07/20 13:32 88 77 195/88 H 06/07/20 12:12 75 131/61 06/07/20 12:01 97.5 F L 75 14 06/07/20 08:00 97.5 F L 78 19 06/07/20 04:00 98.1 F 74 15 BP BP BP Pulse Ox 06/07/20 13:32 126/67 06/07/20 12:12 06/07/20 12:01 131/61 98 06/07/20 08:00 158/82 H 96 06/07/20 04:00 156/72 H 98 Weight Admit Weight 189 lb 9.6 oz Weight 184 lb I&O: 06/06/20 06/07/20 06/08/20 06:59 06:59 06:59 Intake Total 480 650 Output Total 1350 1650 Balance -870 -1000 Result Diagrams: 06/05/20 04:01 06/07/20 07:47 Hospitalist ROS - Medication Medications: Active Medications Generic Name Dose Route Start Last Admin Trade Name Freq PRN Reason Stop Dose Admin Acetaminophen 650 mg 06/03/20 14:54 06/03/20 23:20 Acetaminophen 325 Mg Tab PO 650 mg Q4H PRN Administration Headache/Fever/Mild Pain (1-3) Amlodipine Besylate 10 mg 06/04/20 09:00 06/07/20 12:12 Amlodipine 10 Mg Tab PO 10 mg DAILY CHRISTINE Administration Aspirin 81 mg 06/04/20 09:00 06/07/20 11:56 Aspirin Chewable 81 Mg Tab PO Not Given DAILY CHRISTINE Atorvastatin Calcium 40 mg 06/03/20 21:00 06/06/20 21:11 Atorvastatin Calcium 40 Mg Tab PO 40 mg HS CHRISTINE Administration Bicalutamide 50 mg 06/05/20 09:00 06/07/20 12:12 Bicalutamide 50 Mg Tab PO 50 mg DAILY CHRISTINE Administration Clopidogrel Bisulfate 75 mg 06/04/20 17:00 06/06/20 17:18 Clopidogrel Bisulfate 75 Mg Tab PO 75 mg 1700 CHRISTINE Administration Enoxaparin Sodium 30 mg 06/04/20 09:00 06/07/20 11:56 Enoxaparin Sodium 30 Mg/0.3 Ml Syringe SC Not Given 0900 CHRISTINE Famotidine 20 mg 06/03/20 21:00 06/06/20 21:11 Famotidine 20 Mg Tab PO 20 mg QPM CHRISTINE Administration Meropenem 500 mg/ Sodium 100 mls @ 200 mls/hr 06/03/20 20:00 06/06/20 21:11 Chloride IVPB 100 mls Q24HR CHRISTINE Administration Fluconazole/Sodium Chloride 50 mls @ 100 mls/hr 06/04/20 18:00 06/06/20 17:21 100 mg/ Device IVPB 50 mls 1800 CHRISTINE Administration Sodium Chloride 1,000 mls @ 50 mls/hr 06/07/20 00:00 06/06/20 23:24 Normal Saline 0.9% IV 1,000 mls .Q20H CHRISTINE Administration Lorazepam 1 mg 06/04/20 09:00 06/07/20 12:11 Lorazepam 1 Mg Tab PO Not Given BID CHRISTINE Metoprolol Succinate 25 mg 06/05/20 09:00 06/07/20 08:48 Metoprolol Succinate Xl 25 Mg Tab PO 25 mg DAILY CHRISTINE Administration Oxybutynin Chloride 5 mg 06/03/20 21:00 06/07/20 12:13 Oxybutynin 5 Mg Tab PO 5 mg BID CHRISTINE Administration Sertraline HCl 100 mg 06/04/20 17:00 06/06/20 17:18 Sertraline Hcl 100 Mg Tab PO 100 mg 1700 CHRISTINE Administration - Exam Eye: PERRL, anicteric sclera Heart: RRR, no murmur, no gallops, no rubs, normal peripheral pulses Respiratory: CTAB, no wheezes, no rales, no ronchi, normal chest expansion, no tachypnea Gastrointestinal: soft, non-tender, non-distended, normal bowel sounds, no palpable masses, no hepatomegaly Extremities: no cyanosis, no edema Hosp A/P (1) Malfunction of nephrostomy tube Code(s): T83.098A - [facility] COMPL OF OTHER URINARY CATHETER, INITIAL ENCOUNTER Status: Acute (2) ALYSON (acute kidney injury) Code(s): N17.9 - ACUTE KIDNEY FAILURE, UNSPECIFIED Status: Acute (3) Metastatic malignant neoplasm to prostate Code(s): C79.82 - SECONDARY MALIGNANT NEOPLASM OF GENITAL ORGANS Status: Chronic (4) CAD (coronary artery disease) Code(s): I25.10 - ATHSCL HEART DISEASE OF [place] CORONARY ARTERY W/O ANG PCTRS Status: Chronic Qualifiers: (5) UTI (urinary tract infection) Status: Acute Qualifiers: - Plan * Acute Kidney injury due to Obstructive Uropathy-He is s/p the replacement of the Nephrostomy stents * Urology recommendations noted. Will monitor his renal function over the next few days * Symptom relief * CAD- stable * Prostate Cancer * UTI- continue Diflucan and Meropenem as per ID recommendations
--- NOTE | 2020-06-07 14:13 | OP ---
DATE OF PROCEDURE: 06/07/2020 PREOPERATIVE DIAGNOSIS: Bilateral hydronephrosis. POSTOPERATIVE DIAGNOSIS: Bilateral hydronephrosis. PROCEDURES PERFORMED: Cystoscopy with bilateral retrograde pyelogram and bilateral ureteral stent exchange. ANESTHESIA: General. COMPLICATIONS: None. ESTIMATED BLOOD LOSS: None. SPECIMEN: Right renal urine for culture. DESCRIPTION OF PROCEDURE: After informed consent, the patient was taken to the operating room, transferred to the table under his own power. Anesthesia was established. A time-out was performed, showing the correct patient, site, and procedure. Preoperative antibiotics were administered. He was prepped and draped in the lithotomy position. The rigid cystoscope was advanced through the urethra noting a normal course and caliber of the urethra with moderately coapting lobes of the prostate. The patient's bladder neck appears more normal than it did the last time I scoped him. However, he still has slightly abnormal tissue occupying most of the trigone and ureteral orifices. I began by grabbing the left ureteral stent and brought this out through the urethral meatus. A wire was passed through this into the renal pelvis under fluoroscopic guidance and then the stent removed in its entirety. A Pollack catheter was passed over the wire into the proximal ureter and then the wire removed and a retrograde pyelogram performed showing hydronephrosis with moderate hydronephrosis of the left kidney. The wire was then replaced. The Pollack removed and a 7 x 24 double-J ureteral stent positioned over the wire with a curl in the kidney and curl in the bladder under fluoroscopic guidance. The same procedure was then repeated on the right side. However, upon placing the Pollack catheter, I noted purulent urine draining and so a sample was taken. A retrograde pyelogram on this side also showed moderate hydronephrosis. I was able to position a 7 x 24 double-J ureteral stent over the wire with a curl in the kidney and curl in the bladder under fluoroscopic guidance. The scope was then reinserted and proper placement of the stents in the bladder was confirmed visually. The bladder was then drained and the scope withdrawn. An 18-Israeli Greco catheter was placed with 10 mL instilled in the balloon. This was connected to bag drainage. I finished by performing a digital rectal exam showing a somewhat indurated prostate, but no severe abnormalities. The patient was then awoken from anesthesia, transferred back to his hospital bed and taken to the PACU in stable condition, where he will return to the floor upon recovery. Job ID: [id number]
--- NOTE | 2020-06-07 14:53 | RAD ---
RETROGRADE PYELOGRAM: Three images obtained from OR> INDICATION: Intraoperative imaging during stent placement. FINDINGS: Initial image shows 2 double-pigtail ureteral stents. The 2nd image shows opacification of the upper collecting structures on the left which reveals hydronephrosis. Final image shows opacification of the right upper collecting structures also reveals hydronephrosis. Bilateral stents remain in place on the final image. POS: OFF
--- NOTE | 2020-06-07 16:53 | PRG ---
DATE OF SERVICE: 06/07/2020 OBJECTIVE: VITAL SIGNS: The patient is noted with the following vital signs; afebrile, temperature 97.5, pulse 70, respiratory rate of 14, O2 saturations of 94%, with a blood pressure of 158/82. HEENT: Unremarkable. CARDIOVASCULAR SYSTEM: First and second heart sounds were heard. RESPIRATORY SYSTEM: Clear to auscultation. DIGESTIVE SYSTEM: Revealed a benign abdomen. EXTREMITIES: No peripheral edema. LABORATORY INVESTIGATION: Showed a creatinine of 4.35, BUN of 100, bicarb of 20. IMPRESSION: 1. Acute on chronic kidney disease in the context of obstructive uropathy due to blocked ureteral stent. 2. Mild metabolic acidosis. 3. some retroperitoneal lymphadenopathy. 4. Anemia with leukocytosis. PLAN: 1. Most likely, urologic intervention as regards to the stent, which I do believe is going to play a significant role in the context of improving the renal function in this patient. 2. Renally dose all medications. 3. No emergent indication for renal replacement therapy (hemodialysis). Hopefully, the urologic intervention will salvage his kidney. 4. Further management to be dependent on the clinical course. Job ID: [id number]
--- NOTE | 2020-06-07 17:07 | PRG ---
DATE OF SERVICE: 06/04/2020 SUBJECTIVE: The patient noted with the following vital signs. OBJECTIVE: VITAL SIGNS: Afebrile, temperature 98.6, pulse 73, respiratory rate of 16, O2 saturations are 97% with a blood pressure of 133/62. HEENT: Unremarkable. CARDIOVASCULAR SYSTEM: First and second heart sounds were heard. RESPIRATORY SYSTEM: Clear to auscultation. DIGESTIVE SYSTEM: Revealed a benign abdomen with positive bowel sounds. EXTREMITIES: No peripheral edema. SKIN: No new gross rash. LYMPHATICS: No peripheral lymphadenopathy. LABORATORY INVESTIGATION: Showed a hemoglobin of 7.7. BUN of 126, bicarb of 19 with creatinine of 6.32. IMPRESSION: 1. Acute on chronic kidney disease in the context of obstructive uropathy. 2. Anemia likely that of chronic disease. 3. Metabolic acidosis related to problem #1. PLAN: 1. The patient will need urologic evaluation/intervention. 2. Renally dose all medications. 3. No emergent indication for renal replacement therapy. Hopefully, urologic intervention will improve this patient's renal . 4. Further management to be dependent on the clinical course. Job ID: [id number]
[2020-06-07] MEDS: Clopidogrel Bisulfate 75 MG TAB PO SCH (18:06)
[2020-06-07] MEDS: Phenazopyridine HCl 100 MG TAB PO SCH (18:06)
[2020-06-07] MEDS: Meropenem 500 MG in Sodium Chloride 0.9% 100 ML IVPB SCH (21:19)
[2020-06-07] MEDS: Sodium Chloride 0.9% 1,000 ML IV SCH (21:19)
[2020-06-07] MEDS: Atorvastatin Calcium 40 MG TAB PO SCH (21:20)
[2020-06-07] MEDS: Famotidine 20 MG TAB PO SCH (21:20)
[2020-06-07] MEDS: NACL ISO OSM IVPB SCH (23:46)
[2020-06-07] MEDS: FLUCONAZOLE IVPB SCH (23:46)
[2020-06-07] MEDS: ADMIXTURE FEE CHEMO IVPB SCH (23:46)
[2020-06-08 05:24] LABS: Anion Gap 17 mmol/L (10-20); BUN (Urea Nitrogen) 81 mg/dL (8.4-25.7); Calc. Creatinine Clearance 25 mL/min (70-130); Calcium 8.3 mg/dL (7.8-10.44); Carbon Dioxide 21 mmol/L (23-31); Chloride 110 mmol/L (98-107); Estimated GFR-MDRD 19; Glucose 97 mg/dL (83-110); Potassium 4.9 mmol/L (3.5-5.1); Sodium 143 mmol/L (136-145)
[2020-06-08] MEDS: Bicalutamide 50 MG TAB PO SCH (09:38)
[2020-06-08] MEDS: Amlodipine 10 MG TAB PO SCH (09:39)
[2020-06-08] MEDS: Lorazepam 1 MG TAB PO SCH ×2 (09:39→21:52)
[2020-06-08] MEDS: Phenazopyridine HCl 100 MG TAB PO SCH ×3 (09:39→17:40)
[2020-06-08] MEDS: Aspirin Chewable 81 MG TAB PO SCH (09:39)
[2020-06-08] MEDS: Sodium Bicarbonate Tab 325 MG TAB PO SCH ×3 (09:39→21:52)
[2020-06-08] MEDS: Enoxaparin Sodium 30 MG/0.3 ML SYRINGE SC SCH (09:40)
[2020-06-08] MEDS: Oxybutynin 5 MG TAB PO SCH ×2 (09:45→22:06)
[2020-06-08] MEDS: Sodium Chloride 0.9% 1,000 ML IV SCH ×2 (09:56→15:19)
--- NOTE | 2020-06-08 15:28 | PRG ---
DATE OF SERVICE: 06/08/2020 SERVICE: Nephrology. SUBJECTIVE: A 75-year-old male with prostate cancer associated with bilateral hydronephrosis requiring stent, admitted due to acute onset of worsening renal function associated with electrolyte derangements. The patient had cystoscopy with exchange of stent. Oral intake remained suboptimal. No nausea or vomiting, but the patient reported poor appetite. OBJECTIVE: VITAL SIGNS: Temperature 98.3, pulse 66, respiratory rate 18, SpO2 of 94% on room air, blood pressure is 127/62. I and O in the last 24 hours showed total intake of 1100 and output of 900. GENERAL: Fatigued elderly male, in no obvious distress. Afebrile. Anicteric. Acyanotic. HEENT: Normocephalic, atraumatic. Oral mucosa is moist. NECK: Supple with no JVD. CARDIOVASCULAR: Regular rhythm and rate with normal heart sounds 1 and 2. RESPIRATORY: Fair air entry bilaterally with no crackle or rhonchi or use of accessory muscles. GASTROINTESTINAL: Full, soft, nontender, and nondistended with normal bowel sounds. UROGENITAL: Greco catheter is in place draining some bloody-tinged urine. EXTREMITIES: Grossly normal looking, atraumatic with no edema or erythema. CENTRAL NERVOUS SYSTEM: Conscious and alert and oriented. Some memory lapses noted. DIAGNOSTIC DATA: Chemistry today showed sodium of 143, potassium of 4.9, chloride of 110, CO2 of 21, BUN 81, creatinine 3.17, glucose 87, and calcium 8.3. Creatinine is down from 4.35 yesterday. Urine culture collected on June 03 is growing Jasmyne albicans. Also preliminary urine sample from cystoscopy is showing yeast species. ASSESSMENT: 1. Acute kidney injury: Due to obstructive uropathy related to obstructed ureteric stents bilaterally. The patient is status post stent exchange with significant improvement in renal function. BUN is down to 81 from 100 and creatinine down to 3.17 from 4.35. Some degree of volume depletion is a concern and may be contributory. 2. Obstructive uropathy status post exchange of stent. Postobstructive polyuria is anticipated. 3. Metabolic acidosis: Due to acute kidney injury. 4. Hyperkalemia, resolved. 5. Anemia of chronic kidney disease. Iron deficiency is a concern. 6. Protein-calorie malnutrition. 7. Prostate cancer, on treatment. PLAN: 1. We will increase normal saline to 100 mL/h. 2. We will also start alkali therapy with sodium bicarbonate orally. 3. Antimicrobial therapy as per primary attending. 4. We will also start the patient on Megace to improve oral intake and increased appetite. 5. We will monitor renal function. 6. Further treatment to follow depending on hospital course. Job ID: [id number]
--- NOTE | 2020-06-08 16:13 | PRG ---
DATE OF SERVICE: 06/08/2020 SUBJECTIVE: No significant changes since yesterday. He is much less somnolent, however, remains very confused. He denies any discomfort, reporting no flank pain, nausea, fevers, suprapubic pain. OBJECTIVE: VITAL SIGNS: Afebrile. Vitals stable. GENERAL: No acute distress. LUNGS: Unlabored breathing. HEART: Regular rate and rhythm. ABDOMEN: Soft, nontender, nondistended. No flank tenderness. No suprapubic tenderness. Greco catheter in good position draining dark yellow urine consistent with Pyridium use. EXTREMITIES: No peripheral edema or cyanosis. NEURO: More alert than yesterday, oriented to person only. LABORATORY DATA: Reviewed. Creatinine is down to 3.17, urine culture taken from the right kidney is already growing yeast species. ASSESSMENT AND PLAN: Metastatic prostate cancer, bilateral hydronephrosis with acute kidney injury. Postop day one, cystoscopy with bilateral stent placement. Stents and Greco catheter to remain for now while we wait for his creatinine to return to normal. Ultrasound ordered for tomorrow morning to ensure that hydronephrosis is resolving. If his hydronephrosis was to persist, he would need nephrostomy tubes. PSA has risen to 16. Over the last several weeks, he has been in and out of the hospital and so he is just beyond his 6-month bryan for Lupron. Casodex has been started while inpatient. Job ID: [id number]
[2020-06-08] MEDS: Clopidogrel Bisulfate 75 MG TAB PO SCH (17:40)
--- NOTE | 2020-06-08 17:44 | PRG ---
DATE OF SERVICE: 06/08/2020 SUBJECTIVE: The patient underwent exchange of the stents by Dr. Melara. He has no dyspnea or chest pain. Moderate anorexia. No vomiting. No abdominal pain. OBJECTIVE: VITAL SIGNS: T-max 98.3, blood pressure 114/57, heart rate 71, respiratory rate 16, O2 saturation 93% on room air. GENERAL: Does not appear in distress. He is oriented. LUNGS: Symmetric air entry. No wheezing. HEART: S1 and S2, regular rate. ABDOMEN: Soft, not distended or tender. Indwelling Greco catheter. I's and O's have been negative for the past 2 to 3 days. Urine output 1100. LABORATORY DATA: Creatinine has improved quite significantly to 3.17. White cell count 15.2, hemoglobin 8.1, platelets 678. Cultures with Jasmyne albicans. He is currently on Diflucan, meropenem. His E. coli in blood was from May 17 and probably will be able to eventually discontinue meropenem and just keep him on Diflucan for a few weeks, maybe 3 or 4 weeks. Job ID: [id number]
[2020-06-08] MEDS: FLUCONAZOLE IVPB SCH (17:46)
[2020-06-08] MEDS: ADMIXTURE FEE CHEMO IVPB SCH (17:46)
[2020-06-08] MEDS: NACL ISO OSM IVPB SCH (17:46)
[2020-06-08] MEDS: Atorvastatin Calcium 40 MG TAB PO SCH (21:52)
[2020-06-08] MEDS: Famotidine 20 MG TAB PO SCH (21:52)
[2020-06-08] MEDS: Meropenem 500 MG in Sodium Chloride 0.9% 100 ML IVPB SCH (21:53)
[2020-06-09] MEDS: Sodium Chloride 0.9% 1,000 ML IV SCH ×3 (00:30→21:22)
--- NOTE | 2020-06-09 07:52 | ULT ---
Renal sonogram HISTORY: Hydronephrosis. Follow-up. COMPARISON: 06/06/2020. Findings mild distention of the right renal collecting system is less pronounced than on the prior st udy. Echogenic stent is evident within the renal pelvis. Urinary bladder is decompressed by Greco catheter. Minimal distention of the left renal collecting system is present. Stent in place. IMPRESSION : Significant improvement. Mild right and minimal left residual hydronephrosis. Bilateral ureteral stents.
[2020-06-09] MEDS: Aspirin Chewable 81 MG TAB PO SCH (08:50)
[2020-06-09] MEDS: Sodium Bicarbonate Tab 325 MG TAB PO SCH ×3 (08:50→21:21)
[2020-06-09] MEDS: Amlodipine 10 MG TAB PO SCH (08:50)
[2020-06-09] MEDS: Lorazepam 1 MG TAB PO SCH ×2 (08:50→21:21)
[2020-06-09] MEDS: Phenazopyridine HCl 100 MG TAB PO SCH ×3 (08:50→17:29)
[2020-06-09] MEDS: Enoxaparin Sodium 30 MG/0.3 ML SYRINGE SC SCH (08:51)
[2020-06-09] MEDS: Megestrol Acetate 800 MG/20 ML UDCUP PO SCH (08:51)
[2020-06-09] MEDS: Bicalutamide 50 MG TAB PO SCH (08:53)
[2020-06-09] MEDS: Oxybutynin 5 MG TAB PO SCH ×2 (08:57→21:21)
[2020-06-09] MEDS: Acetaminophen 325 MG TAB PO PRN (10:06)
[2020-06-09 12:17] LABS: #Basophils 0.1 thou/uL (0.0-0.2); #Eosinphils 0.4 thou/uL (0.0-0.7); #Lymphocytes 0.9 thou/uL (1.20-3.40); #Monocytes 0.7 thou/uL (0.11-0.59); %Basophils 0.7 % (0.0-1.0); %Eosinophils 4.2 % (0.0-10.0); %Lymphocytes 9.4 % (21.0-51.0); %Monocytes 8.2 % (0.0-10.0); %Neutrophils 77.5 % (42.0-75.0); Hemoglobin 8.1 g/dL (14.0-18.0); Mean Corpuscular HGB CONC 31.3 g/dL (32.0-36.0); Mean Corpuscular Hemoglobin 28.6 pg (27.0-31.0); Mean Corpuscular Volume 91.5 fL (78.0-98.0); Mean Platelet Volume 6.2 fL (7.4-10.4); Platelet Count 646 thou/uL (130-400); RBC Distribution Width 14.9 % (11.5-14.5); Red Blood Cell (RBC) Count 2.83 mill/uL (4.70-6.10)
--- NOTE | 2020-06-09 12:33 | PDOC.HOSPP ---
- Subjective Encounter Date: 06/09/20 Encounter Time: 12:31 Subjective: Mr. Santos seen today in follow-up of obstructive uropathy. He seems a bit clearer, with regards to his mental status. He notes some constipation. His appetite has improved some. - Objective Vital Signs & Weight: Vital Signs (12 hours) Temp Pulse Resp BP Pulse Ox 06/09/20 08:50 65 06/09/20 08:00 97.8 F 65 17 130/63 95 06/09/20 04:00 98.3 F 18 155/71 H 95 Weight Admit Weight 189 lb 9.6 oz Weight 183 lb 5 oz I&O: 06/08/20 06/09/20 06/10/20 06:59 06:59 06:59 Intake Total 1100 2430 240 Output Total 900 2830 Balance 200 -400 240 Result Diagrams: 06/09/20 12:10 06/08/20 04:18 Hospitalist ROS - Medication Medications: Active Medications Generic Name Dose Route Start Last Admin Trade Name Freq PRN Reason Stop Dose Admin Acetaminophen 650 mg 06/03/20 14:54 06/09/20 10:06 Acetaminophen 325 Mg Tab PO 650 mg Q4H PRN Administration Headache/Fever/Mild Pain (1-3) Acetaminophen/Codeine Phosphate 1 tab 06/07/20 14:02 06/07/20 14:27 Acetaminophen/Codeine 30-300mg Tablet PO 1 tab Q4H PRN Administration Moderate Pain (4-6) Amlodipine Besylate 10 mg 06/04/20 09:00 06/09/20 08:50 Amlodipine 10 Mg Tab PO 10 mg DAILY CHRISTINE Administration Aspirin 81 mg 06/04/20 09:00 06/09/20 08:50 Aspirin Chewable 81 Mg Tab PO 81 mg DAILY CHRISTINE Administration Atorvastatin Calcium 40 mg 06/03/20 21:00 06/08/20 21:52 Atorvastatin Calcium 40 Mg Tab PO 40 mg HS CHRISTINE Administration Bicalutamide 50 mg 06/05/20 09:00 06/09/20 08:53 Bicalutamide 50 Mg Tab PO 50 mg DAILY CHRISTINE Administration Clopidogrel Bisulfate 75 mg 06/04/20 17:00 06/08/20 17:40 Clopidogrel Bisulfate 75 Mg Tab PO 75 mg 1700 CHRISTINE Administration Enoxaparin Sodium 30 mg 06/04/20 09:00 06/09/20 08:51 Enoxaparin Sodium 30 Mg/0.3 Ml Syringe SC 30 mg 0900 CHRISTINE Administration Famotidine 20 mg 06/03/20 21:00 06/08/20 21:52 Famotidine 20 Mg Tab PO 20 mg QPM CHRISTINE Administration Meropenem 500 mg/ Sodium 100 mls @ 200 mls/hr 06/03/20 20:00 06/08/20 21:53 Chloride IVPB 100 mls Q24HR CHRISTINE Administration Fluconazole/Sodium Chloride 50 mls @ 100 mls/hr 06/07/20 18:00 06/08/20 17:46 100 mg/ Miscellaneous IVPB 50 mls Medication 1 units/ Device 1800 CHRISTINE Administration Sodium Chloride 1,000 mls @ 100 mls/hr 06/08/20 14:52 06/09/20 08:58 Normal Saline 0.9% IV 1,000 mls .Q10H CHRISTINE Administration Lorazepam 1 mg 06/04/20 09:00 06/09/20 08:50 Lorazepam 1 Mg Tab PO 1 mg BID CHRISTINE Administration Megestrol Acetate 400 mg 06/09/20 09:00 06/09/20 08:51 Megestrol Acetate 800 Mg/20 Ml Udcup PO 400 mg DAILY CHRISTINE Administration Metoprolol Succinate 25 mg 06/05/20 09:00 06/09/20 08:50 Metoprolol Succinate Xl 25 Mg Tab PO 25 mg DAILY CHRISTINE Administration Oxybutynin Chloride 5 mg 06/03/20 21:00 06/09/20 08:57 Oxybutynin 5 Mg Tab PO 5 mg BID CHRISTINE Administration Phenazopyridine HCl 100 mg 06/07/20 18:00 06/09/20 12:26 Phenazopyridine Hcl 100 Mg Tab PO 100 mg PC CHRISTINE Administration Sertraline HCl 100 mg 06/04/20 17:00 06/08/20 17:40 Sertraline Hcl 100 Mg Tab PO 100 mg 1700 CHRISTINE Administration Sodium Bicarbonate 650 mg 06/08/20 09:00 06/09/20 08:50 Sodium Bicarbonate Tab 325 Mg Tab PO 650 mg TID CHRISTINE Administration Sodium Chloride 10 ml 06/08/20 09:00 06/09/20 08:52 Flush - Normal Saline 10 Ml Syringe IVF Not Given Q12HR CHRISTINE - Exam Eye: PERRL Heart: RRR, no murmur, no gallops, no rubs, normal peripheral pulses Respiratory: CTAB, no wheezes, no rales, no ronchi, normal chest expansion, no tachypnea Gastrointestinal: soft, non-tender (mildly distended), normal bowel sounds, no palpable masses, no hepatomegaly Extremities: no cyanosis, no edema Hosp A/P (1) Malfunction of nephrostomy tube Code(s): T83.098A - [facility] COMPL OF OTHER URINARY CATHETER, INITIAL ENCOUNTER Status: Acute (2) ALYSON (acute kidney injury) Code(s): N17.9 - ACUTE KIDNEY FAILURE, UNSPECIFIED Status: Acute (3) Metastatic malignant neoplasm to prostate Code(s): C79.82 - SECONDARY MALIGNANT NEOPLASM OF GENITAL ORGANS Status: Chronic (4) CAD (coronary artery disease) Code(s): I25.10 - ATHSCL HEART DISEASE OF [place] CORONARY ARTERY W/O ANG PCTRS Status: Chronic Qualifiers: (5) UTI (urinary tract infection) Status: Acute Qualifiers: - Plan * Acute Kidney injury due to Obstructive Uropathy-He is s/p the replacement of the Nephrostomy stents, and renal function is improving * Will re-check BMP today * Urology recommendations noted. Will monitor his renal function over the next few days * Symptom relief * CAD- stable * Prostate Cancer * UTI- Meropenem can be discontinued. Continue Diflucan * Stable to move off telemetry
[2020-06-09] MEDS ORDERED: Polyethylene Glycol 3350 17 GM Packet PO SCH (12:45)
[2020-06-09 13:39] LABS: Fungus Stain Final report (.)
[2020-06-09 14:16] VITALS: BMI 27.8
--- NOTE | 2020-06-09 15:57 | PDOC.NEPPN ---
- Subjective Encounter Date: 06/09/20 Subjective: Seen in [facility] up for ALYSON. Feeling. Oral intake is improving but still valladares boptimal. - Objective Vital Signs & Weight: Vital Signs (12 hours) Temp Pulse Pulse Pulse Resp BP BP 06/09/20 12:00 97.6 F 67 18 06/09/20 10:30 70 67 148/72 H 149/71 H 06/09/20 08:50 65 06/09/20 08:00 97.8 F 65 17 06/09/20 04:00 98.3 F 18 BP Pulse Ox Pulse Ox Pulse Ox 06/09/20 12:00 149/71 H 97 06/09/20 10:30 98 98 06/09/20 08:50 06/09/20 08:00 130/63 95 06/09/20 04:00 155/71 H 95 Weight Admit Weight 189 lb 9.6 oz Weight 183 lb 5 oz I&O: 06/08/20 06/09/20 06/10/20 06:59 06:59 06:59 Intake Total 1100 2430 240 Output Total 900 2830 Balance 200 -400 240 Result Diagrams: 06/09/20 12:10 06/08/20 04:18 Nephrology ROS - Medication Medications: Active Medications Generic Name Dose Route Start Last Admin Trade Name Freq PRN Reason Stop Dose Admin Acetaminophen 650 mg 06/03/20 14:54 06/09/20 10:06 Acetaminophen 325 Mg Tab PO 650 mg Q4H PRN Administration Headache/Fever/Mild Pain (1-3) Acetaminophen/Codeine Phosphate 1 tab 06/07/20 14:02 06/07/20 14:27 Acetaminophen/Codeine 30-300mg Tablet PO 1 tab Q4H PRN Administration Moderate Pain (4-6) Amlodipine Besylate 10 mg 06/04/20 09:00 06/09/20 08:50 Amlodipine 10 Mg Tab PO 10 mg DAILY CHRISTINE Administration Aspirin 81 mg 06/04/20 09:00 06/09/20 08:50 Aspirin Chewable 81 Mg Tab PO 81 mg DAILY CHRISTINE Administration Atorvastatin Calcium 40 mg 06/03/20 21:00 06/08/20 21:52 Atorvastatin Calcium 40 Mg Tab PO 40 mg HS CHRISTINE Administration Bicalutamide 50 mg 06/05/20 09:00 06/09/20 08:53 Bicalutamide 50 Mg Tab PO 50 mg DAILY CHRISTINE Administration Clopidogrel Bisulfate 75 mg 06/04/20 17:00 06/08/20 17:40 Clopidogrel Bisulfate 75 Mg Tab PO 75 mg 1700 CHRISTINE Administration Enoxaparin Sodium 30 mg 06/04/20 09:00 06/09/20 08:51 Enoxaparin Sodium 30 Mg/0.3 Ml Syringe SC 30 mg 0900 CHRISTINE Administration Famotidine 20 mg 06/03/20 21:00 06/08/20 21:52 Famotidine 20 Mg Tab PO 20 mg QPM CHRISTINE Administration Meropenem 500 mg/ Sodium 100 mls @ 200 mls/hr 06/03/20 20:00 06/08/20 21:53 Chloride IVPB 100 mls Q24HR CHRISTINE Administration Fluconazole/Sodium Chloride 50 mls @ 100 mls/hr 06/07/20 18:00 06/08/20 17:46 100 mg/ Miscellaneous IVPB 50 mls Medication 1 units/ Device 1800 CHRISTINE Administration Sodium Chloride 1,000 mls @ 100 mls/hr 06/08/20 14:52 06/09/20 08:58 Normal Saline 0.9% IV 1,000 mls .Q10H CHRISTINE Administration Lorazepam 1 mg 06/04/20 09:00 06/09/20 08:50 Lorazepam 1 Mg Tab PO 1 mg BID CHRISTINE Administration Megestrol Acetate 400 mg 06/09/20 09:00 06/09/20 08:51 Megestrol Acetate 800 Mg/20 Ml Udcup PO 400 mg DAILY CHRISTINE Administration Metoprolol Succinate 25 mg 06/05/20 09:00 06/09/20 08:50 Metoprolol Succinate Xl 25 Mg Tab PO 25 mg DAILY CHRISTINE Administration Oxybutynin Chloride 5 mg 06/03/20 21:00 06/09/20 08:57 Oxybutynin 5 Mg Tab PO 5 mg BID CHRISTINE Administration Phenazopyridine HCl 100 mg 06/07/20 18:00 06/09/20 12:26 Phenazopyridine Hcl 100 Mg Tab PO 100 mg PC CHRISTINE Administration Sertraline HCl 100 mg 06/04/20 17:00 06/08/20 17:40 Sertraline Hcl 100 Mg Tab PO 100 mg 1700 CHRISTINE Administration Sodium Bicarbonate 650 mg 06/08/20 09:00 06/09/20 15:24 Sodium Bicarbonate Tab 325 Mg Tab PO 650 mg TID CHRISITNE Administration Sodium Chloride 10 ml 06/08/20 09:00 06/09/20 08:52 Flush - Normal Saline 10 Ml Syringe IVF Not Given Q12HR CHRISTINE - Exam General Appearance: awake alert Eye: PERRL ENT: normocephalic atraumatic, moist mucosa Neck: supple, no JVD Respiratory: CTAB, no ronchi, no tachypnea Cardiovascular: RRR Gastrointestinal: soft, non-tender, non-distended, normal bowel sounds Extremities: no clubbing, no edema Neurological: CN's grossly intact, no focal deficits Neurological - other findings: memory lapses noted PSYCH: A&O x 3 Nephrology Results - Labs Result Diagrams: 06/09/20 12:10 06/08/20 04:18 Lab results: WBC 9.0 thou/uL (4.8-10.8) 06/09/20 12:10 Hgb 8.1 g/dL (14.0-18.0) L 06/09/20 12:10 Hct 25.9 % (42.0-52.0) L 06/09/20 12:10 MCV 91.5 fL (78.0-98.0) 06/09/20 12:10 Plt Count 646 thou/uL (130-400) H 06/09/20 12:10 Neutrophils % 77.5 % (42.0-75.0) H 06/09/20 12:10 Sodium 143 mmol/L (136-145) 06/08/20 04:18 Potassium 4.9 mmol/L (3.5-5.1) 06/08/20 04:18 Chloride 110 mmol/L (98-107) H 06/08/20 04:18 Carbon Dioxide 21 mmol/L (23-31) L 06/08/20 04:18 BUN 81 mg/dL (8.4-25.7) H 06/08/20 04:18 Creatinine 3.17 mg/dL (0.7-1.3) H 06/08/20 04:18 Glucose 97 mg/dL (83-110) 06/08/20 04:18 Lactic Acid 0.8 mmol/L (0.5-2.2) 06/03/20 11:35 Calcium 8.3 mg/dL (7.8-10.44) 06/08/20 04:18 Total Bilirubin 0.3 mg/dL (0.2-1.2) 06/03/20 11:35 AST 45 U/L (5-34) H 06/03/20 11:35 ALT 49 U/L (8-55) 06/03/20 11:35 Alkaline Phosphatase 84 U/L (40-110) 06/03/20 11:35 Troponin I Less than 0.010 ng/mL (< 0.028) 06/03/20 11:30 Serum Total Protein 7.4 g/dL (5.8-8.1) 06/03/20 11:35 Albumin 2.7 g/dL (3.4-4.8) L 06/06/20 06:33 Urine Ketones Negative mg/dL (Negative) 06/07/20 10:19 Urine Blood Large (Negative) A 06/07/20 10:19 Urine Nitrite Negative (Negative) 06/07/20 10:19 Ur Leukocyte Esterase Small (Negative) H 06/07/20 10:19 Urine RBC 7-10 HPF (0-3) A 06/07/20 10:19 Urine WBC Greater Than 50 HPF (0-3) A 06/07/20 10:19 Ur Squamous Epith Cells 4-6 HPF (0-3) A 06/07/20 10:19 Urine Bacteria 4+ HPF (None Seen) A 06/07/20 10:19 Sodium 143 mmol/L (136-145) 06/08/20 04:18 Potassium 4.9 mmol/L (3.5-5.1) 06/08/20 04:18 Chloride 110 mmol/L (98-107) H 06/08/20 04:18 Carbon Dioxide 21 mmol/L (23-31) L 06/08/20 04:18 Anion Gap 17 mmol/L (10-20) 06/08/20 04:18 BUN 81 mg/dL (8.4-25.7) H 06/08/20 04:18 Creatinine 3.17 mg/dL (0.7-1.3) H 06/08/20 04:18 Glucose 97 mg/dL (83-110) 06/08/20 04:18 Calcium 8.3 mg/dL (7.8-10.44) 06/08/20 04:18 Phosphorus 7.0 mg/dL (2.3-4.7) H 06/06/20 06:33 Albumin 2.7 g/dL (3.4-4.8) L 06/06/20 06:33 Nephrology AP PN - Plan ASSESSMENT: Acute kidney injury: Due to obstructive uropathy and volume depletion Renal function started improving with volume expansion which continued after stent exchange Obstructive uropathy status post exchange of stent. Postobstructive polyuria is anticipated. Metabolic acidosis: Due to acute kidney injury. Hyperkalemia, resolved. Anemia of chronic kidney disease. Iron deficiency is a concern. Protein-calorie malnutrition. Prostate cancer, on treatment. Volume depletion. PLAN: Continue normal saline to 100 mL/h. Continue alkali therapy with sodium bicarbonate orally. Antimicrobial therapy as per primary attending. Liberaloral intake advised. Continue Megace Monitor renal function..
[2020-06-09] MEDS: Clopidogrel Bisulfate 75 MG TAB PO SCH (17:28)
[2020-06-09] MEDS: NACL ISO OSM IVPB SCH (17:41)
[2020-06-09] MEDS: ADMIXTURE FEE CHEMO IVPB SCH (17:41)
[2020-06-09] MEDS: FLUCONAZOLE IVPB SCH (17:41)
[2020-06-09] MEDS: Atorvastatin Calcium 40 MG TAB PO SCH (21:21)
[2020-06-09] MEDS: Famotidine 20 MG TAB PO SCH (21:21)
[2020-06-09] MEDS: Meropenem 500 MG in Sodium Chloride 0.9% 100 ML IVPB SCH (21:21)
[2020-06-10] MEDS ORDERED: Melatonin 3 MG TAB PO PRN (01:02)
[2020-06-10] MEDS ORDERED: Lorazepam 2 MG/ML VIAL SLOW IVP SCH (03:00)
[2020-06-10 05:45] LABS: Anion Gap 13 mmol/L (10-20); BUN (Urea Nitrogen) 47 mg/dL (8.4-25.7); Calc. Creatinine Clearance 41 mL/min (70-130); Calcium 8.1 mg/dL (7.8-10.44); Carbon Dioxide 24 mmol/L (23-31); Chloride 111 mmol/L (98-107); Estimated GFR-MDRD 36; Glucose 85 mg/dL (83-110); Potassium 4.3 mmol/L (3.5-5.1); Sodium 144 mmol/L (136-145)
[2020-06-10] MEDS ORDERED: Polyethylene Glycol 3350 17 GM Packet PO SCH (09:00)
[2020-06-10] MEDS: Sodium Chloride 0.9% 1,000 ML IV SCH ×2 (09:13→17:30)
[2020-06-10] MEDS: Sodium Bicarbonate Tab 325 MG TAB PO SCH ×2 (09:15→16:22)
[2020-06-10] MEDS: Oxybutynin 5 MG TAB PO SCH (09:16)
[2020-06-10] MEDS: Amlodipine 10 MG TAB PO SCH (09:16)
[2020-06-10] MEDS: Aspirin Chewable 81 MG TAB PO SCH (09:17)
[2020-06-10] MEDS: Lorazepam 1 MG TAB PO SCH (09:18)
[2020-06-10] MEDS: Enoxaparin Sodium 30 MG/0.3 ML SYRINGE SC SCH (09:19)
[2020-06-10] MEDS: Megestrol Acetate 800 MG/20 ML UDCUP PO SCH (09:23)
[2020-06-10] MEDS: Phenazopyridine HCl 100 MG TAB PO SCH ×3 (09:24→19:51)
[2020-06-10] MEDS: Bicalutamide 50 MG TAB PO SCH (09:56)
--- NOTE | 2020-06-10 13:49 | PRG ---
DATE OF SERVICE: 06/10/2020 SUBJECTIVE: No acute issues overnight. No new complaints. He is certain to eat more and is more alert over the past 24 to 48 hours. PHYSICAL EXAMINATION: GENERAL: No acute distress. RESPIRATORY: Unlabored breathing. Symmetric chest expansion. HEART: Regular rate and rhythm. ABDOMEN: Soft, nontender, nondistended. No flank tenderness. No suprapubic tenderness. Greco catheter in good position draining clear urine. SKIN: Warm and dry. EXTREMITIES: No peripheral edema. NEUROLOGIC: Alert, still only oriented to person. LABORATORY DATA: White count 9. Creatinine 1.87. Renal ultrasound reviewed. Hydronephrosis dramatically improved. ASSESSMENT AND PLAN: Prostate cancer, bilateral hydronephrosis, fungal urinary tract infection. Doing well after stent exchange at the beginning of the week. Greco catheter to remain until he follows up with me. He can discharge from my standpoint and will need Casodex 50 mg daily until we see him in our office and perform his next Lupron injection. He will also need fairly close followup with Oncology. I will check his PSA at his next followup to ensure that he is responding to the Casodex. Greater than 30 minutes spent in patient care. Job ID: [id number]
--- NOTE | 2020-06-10 14:04 | PDOC.HOSPP ---
- Subjective Encounter Date: 06/10/20 Encounter Time: 14:02 Subjective: Mr. Gardiner was seen today in follow-up of obstructive Uropathy. He does not have any complaints. He appears less confused. - Objective Vital Signs & Weight: Vital Signs (12 hours) Temp Pulse Pulse Pulse Resp BP BP 06/10/20 12:15 70 74 122/64 06/10/20 12:00 97.7 F 74 20 06/10/20 09:16 75 158/70 H 06/10/20 07:40 98.6 F 75 16 06/10/20 03:17 97.8 F 74 18 BP BP BP Pulse Ox Pulse Ox 06/10/20 12:15 145/70 H 96 06/10/20 12:00 145/70 H 96 06/10/20 09:16 06/10/20 07:40 158/70 H 96 06/10/20 03:17 138/65 96 Weight Admit Weight 189 lb 9.6 oz Weight 181 lb I&O: 06/09/20 06/10/20 06/11/20 06:59 06:59 06:59 Intake Total 2430 4120 240 Output Total 2830 3400 1250 Balance -400 720 -1010 Result Diagrams: 06/09/20 12:10 06/10/20 04:19 Hospitalist ROS - Medication Medications: Active Medications Generic Name Dose Route Start Last Admin Trade Name Freq PRN Reason Stop Dose Admin Acetaminophen 650 mg 06/03/20 14:54 06/09/20 10:06 Acetaminophen 325 Mg Tab PO 650 mg Q4H PRN Administration Headache/Fever/Mild Pain (1-3) Acetaminophen/Codeine Phosphate 1 tab 06/07/20 14:02 06/07/20 14:27 Acetaminophen/Codeine 30-300mg Tablet PO 1 tab Q4H PRN Administration Moderate Pain (4-6) Amlodipine Besylate 10 mg 06/04/20 09:00 06/10/20 09:16 Amlodipine 10 Mg Tab PO 10 mg DAILY CHRISTINE Administration Aspirin 81 mg 06/04/20 09:00 06/10/20 09:17 Aspirin Chewable 81 Mg Tab PO 81 mg DAILY CHRISTINE Administration Atorvastatin Calcium 40 mg 06/03/20 21:00 06/09/20 21:21 Atorvastatin Calcium 40 Mg Tab PO 40 mg HS CHRISTINE Administration Bicalutamide 50 mg 06/05/20 09:00 06/10/20 09:56 Bicalutamide 50 Mg Tab PO 50 mg DAILY CHRISTINE Administration Clopidogrel Bisulfate 75 mg 06/04/20 17:00 06/09/20 17:28 Clopidogrel Bisulfate 75 Mg Tab PO 75 mg 1700 CHRISTINE Administration Enoxaparin Sodium 30 mg 06/04/20 09:00 06/10/20 09:19 Enoxaparin Sodium 30 Mg/0.3 Ml Syringe SC 30 mg 0900 CHRISTINE Administration Famotidine 20 mg 06/03/20 21:00 06/09/20 21:21 Famotidine 20 Mg Tab PO 20 mg QPM CHRISTINE Administration Meropenem 500 mg/ Sodium 100 mls @ 200 mls/hr 06/03/20 20:00 06/09/20 21:21 Chloride IVPB 100 mls Q24HR CHRISTINE Administration Fluconazole/Sodium Chloride 50 mls @ 100 mls/hr 06/07/20 18:00 06/09/20 17:41 100 mg/ Miscellaneous IVPB 50 mls Medication 1 units/ Device 1800 CHRISTINE Administration Sodium Chloride 1,000 mls @ 100 mls/hr 06/08/20 14:52 06/10/20 09:13 Normal Saline 0.9% IV Not Given .Q10H CHRISTINE Lorazepam 1 mg 06/04/20 09:00 06/10/20 09:18 Lorazepam 1 Mg Tab PO 1 mg BID CHRISTINE Administration Megestrol Acetate 400 mg 06/09/20 09:00 06/10/20 09:23 Megestrol Acetate 800 Mg/20 Ml Udcup PO 400 mg DAILY CHRISTINE Administration Melatonin 3 mg 06/10/20 01:02 06/10/20 01:08 Melatonin 3 Mg Tab PO 3 mg HS PRN Administration Insomnia Metoprolol Succinate 25 mg 06/05/20 09:00 06/10/20 09:17 Metoprolol Succinate Xl 25 Mg Tab PO 25 mg DAILY CHRISTINE Administration Oxybutynin Chloride 5 mg 06/03/20 21:00 06/10/20 09:16 Oxybutynin 5 Mg Tab PO 5 mg BID CHRISTINE Administration Phenazopyridine HCl 100 mg 06/07/20 18:00 06/10/20 09:24 Phenazopyridine Hcl 100 Mg Tab PO 100 mg PC CHRISTINE Administration Polyethylene Glycol 17 gm 06/10/20 09:00 06/10/20 09:24 Polyethylene Glycol 3350 17 Gm Packet PO 17 gm DAILY CHRISTINE Administration Sertraline HCl 100 mg 06/04/20 17:00 06/09/20 17:28 Sertraline Hcl 100 Mg Tab PO 100 mg 1700 CHRISTINE Administration Sodium Bicarbonate 650 mg 06/08/20 09:00 06/10/20 09:15 Sodium Bicarbonate Tab 325 Mg Tab PO 650 mg TID CHRISTINE Administration Sodium Chloride 10 ml 06/08/20 09:00 06/10/20 09:26 Flush - Normal Saline 10 Ml Syringe IVF Not Given Q12HR CHRISTINE - Exam Eye: PERRL, anicteric sclera Heart: RRR, no murmur, no gallops, no rubs, normal peripheral pulses Respiratory: CTAB, no wheezes, no rales, no ronchi, normal chest expansion, no tachypnea Gastrointestinal: soft, non-tender, non-distended, normal bowel sounds, no palpable masses, no hepatomegaly Extremities: no cyanosis, no edema Hosp A/P (1) Malfunction of nephrostomy tube Code(s): T83.098A - [facility] COMPL OF OTHER URINARY CATHETER, INITIAL ENCOUNTER Status: Acute (2) ALYSON (acute kidney injury) Code(s): N17.9 - ACUTE KIDNEY FAILURE, UNSPECIFIED Status: Acute (3) Metastatic malignant neoplasm to prostate Code(s): C79.82 - SECONDARY MALIGNANT NEOPLASM OF GENITAL ORGANS Status: Chron ic (4) CAD (coronary artery disease) Code(s): I25.10 - ATHSCL HEART DISEASE OF [place] CORONARY ARTERY W/O ANG PCTRS Status: Chronic Qualifiers: (5) UTI (urinary tract infection) Status: Acute Qualifiers: - Plan * Acute Kidney injury due to Obstructive Uropathy-He is s/p the replacement of the Nephrostomy stents, and renal function is improving * renal function is much improved * UTI due to Jasmyne- he can be transition to oral Diflucan , and discharge home today
--- NOTE | 2020-06-10 16:09 | PDOC.NEPPN ---
- Subjective Encounter Date: 06/10/20 Encounter Time: 08:15 Subjective: Seen in follow up for ALYSON and hyperkalemia. Improved. Oral intake is increasing. No fever. - Objective Vital Signs & Weight: Vital Signs (12 hours) Temp Pulse Pulse Pulse Resp BP BP 06/10/20 12:15 70 74 122/64 06/10/20 12:00 97.7 F 74 20 06/10/20 09:16 75 158/70 H 06/10/20 07:40 98.6 F 75 16 BP BP Pulse Ox Pulse Ox 06/10/20 12:15 145/70 H 96 06/10/20 12:00 145/70 H 96 06/10/20 09:16 06/10/20 07:40 158/70 H 96 Weight Admit Weight 189 lb 9.6 oz Weight 181 lb I&O: 06/09/20 06/10/20 06/11/20 06:59 06:59 06:59 Intake Total 2430 4120 240 Output Total 2830 3400 1250 Balance -400 720 -1010 Result Diagrams: 06/09/20 12:10 06/10/20 04:19 Nephrology ROS - Medication Medications: Active Medications Generic Name Dose Route Start Last Admin Trade Name Freq PRN Reason Stop Dose Admin Acetaminophen 650 mg 06/03/20 14:54 06/09/20 10:06 Acetaminophen 325 Mg Tab PO 650 mg Q4H PRN Administration Headache/Fever/Mild Pain (1-3) Acetaminophen/Codeine Phosphate 1 tab 06/07/20 14:02 06/07/20 14:27 Acetaminophen/Codeine 30-300mg Tablet PO 1 tab Q4H PRN Administration Moderate Pain (4-6) Amlodipine Besylate 10 mg 06/04/20 09:00 06/10/20 09:16 Amlodipine 10 Mg Tab PO 10 mg DAILY CHRISTINE Administration Aspirin 81 mg 06/04/20 09:00 06/10/20 09:17 Aspirin Chewable 81 Mg Tab PO 81 mg DAILY CHRISTINE Administration Atorvastatin Calcium 40 mg 06/03/20 21:00 06/09/20 21:21 Atorvastatin Calcium 40 Mg Tab PO 40 mg HS CHRISTINE Administration Bicalutamide 50 mg 06/05/20 09:00 06/10/20 09:56 Bicalutamide 50 Mg Tab PO 50 mg DAILY CHRISTINE Administration Clopidogrel Bisulfate 75 mg 06/04/20 17:00 06/09/20 17:28 Clopidogrel Bisulfate 75 Mg Tab PO 75 mg 1700 CHRISTINE Administration Enoxaparin Sodium 30 mg 06/04/20 09:00 06/10/20 09:19 Enoxaparin Sodium 30 Mg/0.3 Ml Syringe SC 30 mg 0900 CHRISTINE Administration Famotidine 20 mg 06/03/20 21:00 06/09/20 21:21 Famotidine 20 Mg Tab PO 20 mg QPM CHRISTINE Administration Meropenem 500 mg/ Sodium 100 mls @ 200 mls/hr 06/03/20 20:00 06/09/20 21:21 Chloride IVPB 100 mls Q24HR CHRISTINE Administration Fluconazole/Sodium Chloride 50 mls @ 100 mls/hr 06/07/20 18:00 06/09/20 17:41 100 mg/ Miscellaneous IVPB 50 mls Medication 1 units/ Device 1800 CHRISTINE Administration Sodium Chloride 1,000 mls @ 100 mls/hr 06/08/20 14:52 06/10/20 09:13 Normal Saline 0.9% IV Not Given .Q10H CHRISTINE Lorazepam 1 mg 06/04/20 09:00 06/10/20 09:18 Lorazepam 1 Mg Tab PO 1 mg BID CHRISTINE Administration Megestrol Acetate 400 mg 06/09/20 09:00 06/10/20 09:23 Megestrol Acetate 800 Mg/20 Ml Udcup PO 400 mg DAILY CHRISTINE Administration Melatonin 3 mg 06/10/20 01:02 06/10/20 01:08 Melatonin 3 Mg Tab PO 3 mg HS PRN Administration Insomnia Metoprolol Succinate 25 mg 06/05/20 09:00 06/10/20 09:17 Metoprolol Succinate Xl 25 Mg Tab PO 25 mg DAILY CHRISTINE Administration Oxybutynin Chloride 5 mg 06/03/20 21:00 06/10/20 09:16 Oxybutynin 5 Mg Tab PO 5 mg BID CHRISTINE Administration Phenazopyridine HCl 100 mg 06/07/20 18:00 06/10/20 09:24 Phenazopyridine Hcl 100 Mg Tab PO 100 mg PC CHRISTINE Administration Polyethylene Glycol 17 gm 06/10/20 09:00 06/10/20 09:24 Polyethylene Glycol 3350 17 Gm Packet PO 17 gm DAILY CHRISTINE Administration Sertraline HCl 100 mg 06/04/20 17:00 06/09/20 17:28 Sertraline Hcl 100 Mg Tab PO 100 mg 1700 CHRISTINE Administration Sodium Bicarbonate 650 mg 06/08/20 09:00 06/10/20 09:15 Sodium Bicarbonate Tab 325 Mg Tab PO 650 mg TID CHRISTINE Administration Sodium Chloride 10 ml 06/08/20 09:00 06/10/20 09:26 Flush - Normal Saline 10 Ml Syringe IVF Not Given Q12HR CHRISTINE - Exam General Appearance: awake alert Eye: anicteric sclera ENT: normocephalic atraumatic Neck: symmetric, no JVD Cardiovascular: RRR, no murmur Gastrointestinal: soft, non-tender, non-distended, normal bowel sounds Extremities: no cyanosis Neurological: CN's grossly intact, no focal deficits Neurological - other findings: memeory lapses noted PSYCH: A&O x 3 Nephrology Results - Labs Result Diagrams: 06/09/20 12:10 06/10/20 04:19 Lab results: WBC 9.0 thou/uL (4.8-10.8) 06/09/20 12:10 Hgb 8.1 g/dL (14.0-18.0) L 06/09/20 12:10 Hct 25.9 % (42.0-52.0) L 06/09/20 12:10 MCV 91.5 fL (78.0-98.0) 06/09/20 12:10 Plt Count 646 thou/uL (130-400) H 06/09/20 12:10 Neutrophils % 77.5 % (42.0-75.0) H 06/09/20 12:10 Sodium 144 mmol/L (136-145) 06/10/20 04:19 Potassium 4.3 mmol/L (3.5-5.1) 06/10/20 04:19 Chloride 111 mmol/L (98-107) H 06/10/20 04:19 Carbon Dioxide 24 mmol/L (23-31) 06/10/20 04:19 BUN 47 mg/dL (8.4-25.7) H 06/10/20 04:19 Creatinine 1.87 mg/dL (0.7-1.3) H 06/10/20 04:19 Glucose 85 mg/dL (83-110) 06/10/20 04:19 Lactic Acid 0.8 mmol/L (0.5-2.2) 06/03/20 11:35 Calcium 8.1 mg/dL (7.8-10.44) 06/10/20 04:19 Total Bilirubin 0.3 mg/dL (0.2-1.2) 06/03/20 11:35 AST 45 U/L (5-34) H 06/03/20 11:35 ALT 49 U/L (8-55) 06/03/20 11:35 Alkaline Phosphatase 84 U/L (40-110) 06/03/20 11:35 Troponin I Less than 0.010 ng/mL (< 0.028) 06/03/20 11:30 Serum Total Protein 7.4 g/dL (5.8-8.1) 06/03/20 11:35 Albumin 2.7 g/dL (3.4-4.8) L 06/06/20 06:33 Urine Ketones Negative mg/dL (Negative) 06/07/20 10:19 Urine Blood Large (Negative) A 06/07/20 10:19 Urine Nitrite Negative (Negative) 06/07/20 10:19 Ur Leukocyte Esterase Small (Negative) H 06/07/20 10:19 Urine RBC 7-10 HPF (0-3) A 06/07/20 10:19 Urine WBC Greater Than 50 HPF (0-3) A 06/07/20 10:19 Ur Squamous Epith Cells 4-6 HPF (0-3) A 06/07/20 10:19 Urine Bacteria 4+ HPF (None Seen) A 06/07/20 10:19 Sodium 144 mmol/L (136-145) 06/10/20 04:19 Potassium 4.3 mmol/L (3.5-5.1) 06/10/20 04:19 Chloride 111 mmol/L (98-107) H 06/10/20 04:19 Carbon Dioxide 24 mmol/L (23-31) 06/10/20 04:19 Anion Gap 13 mmol/L (10-20) 06/10/20 04:19 BUN 47 mg/dL (8.4-25.7) H 06/10/20 04:19 Creatinine 1.87 mg/dL (0.7-1.3) H 06/10/20 04:19 Glucose 85 mg/dL (83-110) 06/10/20 04:19 Calcium 8.1 mg/dL (7.8-10.44) 06/10/20 04:19 Phosphorus 7.0 mg/dL (2.3-4.7) H 06/06/20 06:33 Albumin 2.7 g/dL (3.4-4.8) L 06/06/20 06:33 Nephrology AP PN - Plan ASSESSMENT: Acute kidney injury: Due to obstructive uropathy and volume depletion Renal function started improving with volume expansion which continued after stent exchange Obstructive uropathy status post exchange of stent. Metabolic acidosis: Due to acute kidney injury. Acute encephalopathy due to uremia. Present on admission. Resolving. Hyperkalemia, resolved. Anemia of chronic kidney disease. Iron deficiency is a concern. Protein-calorie malnutrition. Prostate cancer, on treatment. Volume depletion. Improved. PLAN: Continue normal saline to 100 mL/h till oral intake is adequate to avert dehydration from postobstructive diuresis Continue alkali therapy with sodium bicarbonate orally. Antimicrobial therapy as per primary attending. Armstrong oral intake advised. Continue Megace Monitor renal function. Need to follow up with repeat renal function when discharged.
[2020-06-10] MEDS: Clopidogrel Bisulfate 75 MG TAB PO SCH (16:22)
[2020-06-10 16:41] VITALS: BP 142/61; TEMP 98
[2020-06-10] MEDS: FLUCONAZOLE IVPB SCH (19:51)
[2020-06-10] MEDS: ADMIXTURE FEE CHEMO IVPB SCH (19:51)
[2020-06-10] MEDS: NACL ISO OSM IVPB SCH (19:51)
--- NOTE | 2020-06-11 03:41 | DIS ---
DATE OF ADMISSION: 06/03/2020 DATE OF DISCHARGE: 06/10/2020 DISCHARGE DISPOSITION: Home. DISCHARGE DIAGNOSES: 1. Acute kidney injury. 2. Obstructive uropathy. 3. Malfunctioning nephrostomy tubes. 4. Prostate cancer, on radiation therapy. 5. Metabolic encephalopathy, likely as a result of acute kidney injury. 6. Urinary tract infection. DISCHARGE MEDICATIONS: Include: 1. Zoloft 100 mg p.o. q.h.s. 2. Plavix 75 mg p.o. daily. 3. Diflucan 100 mg p.o. q. day for 3 weeks. 4. Casodex 50 mg p.o. daily. 5. Aspirin 81 mg p.o. daily. 6. Metoprolol succinate 50 mg p.o. daily. 7. Norvasc 10 mg p.o. daily. 8. Lorazepam 1 mg p.o. b.i.d. 9. Lipitor 80 mg q.h.s. 10. Ditropan 5 mg p.o. b.i.d. IMAGING DONE DURING THE HOSPITAL STAY: The patient had a CT scan of the abdomen and pelvis. This revealed findings consistent with obstructive uropathy. There is evidence of retroperitoneal adenopathy. Two ureteral stents are noted. However, there was evidence of bilateral hydronephrosis and perinephric stranding. The patient had a retrograde pyelogram performed showing 2 double-J ureteral stents. There is evidence of both right and left hydronephrosis. The patient had a renal ultrasound performed that showed interval worsening of bilateral obstructive uropathy with interval worsening of now moderate bilateral hydronephrosis. There are bilateral ureteral stents and a Greco catheter. The patient also had a cystoscopy with bilateral retrograde pyelogram and bilateral ureteral stent exchange, and the patient had a repeat renal ultrasound showing significant improvement. There was mild right and minimal left residual hydronephrosis and bilateral ureteral stents. CODE STATUS: Full code. ALLERGIES: TO PENICILLIN. HOSPITAL COURSE: Mr. Gardiner is a pleasant 75-year-old gentleman, who recently was diagnosed with a urinary tract infection. He had a PICC line placed and was being treated by Dr. Palacios. He had completed his IV Rocephin and was going for a followup appointment to see Dr. Palacios, where it was noted that he had an elevated creatinine. He also seemed to be slightly confused and a bit weaker than usual. He was admitted for acute kidney injury and metabolic encephalopathy. It was found that the acute kidney injury was likely the result of obstructive uropathy due to the evidence of hydronephrosis bilaterally. It was felt that his nephrostomy tubes, which had been internalized were likely not functioning properly. The patient underwent a retrograde pyelogram demonstrating the obstructed stents. Greco catheter was placed. However, the patient did not have any improvement in his renal function. For this reason, the urologist, Dr. Melara, made a decision to replace the stents. After replacement of the stents, the patient had a significant and rapid improvement in his renal function. A repeat renal ultrasound was performed, which demonstrated improvement in the degree of the hydronephrosis. Also, during this time, the patient was seen by Nephrology. Also, with the improvement in his renal function, the patient's mental status actually improved as well. A repeat urinalysis and urine culture were obtained during this hospital stay. Urine culture grew Jasmyne. During the stay, the antimicrobials were discontinued and he was continued on Diflucan for the yeast urinary tract infection. He will continue the Diflucan for approximately 3 weeks. This was recommended under the direction of Dr. Palacios. The patient will continue to have the Greco catheter. Regarding the prostate cancer, the patient is to continue on Casodex, which was started during his hospital stay. He will need outpatient followup with Oncology for anticipated anti-androgen therapy with Lupron. The patient is currently clinically stable and will be discharged into the care of the patient's , who remained at the patient's bedside throughout almost the entirety of the hospital stay. Job ID: [id number]
--- NOTE | 2020-06-11 05:50 | PQF ---
CLINICAL DOCUMENTATION CLARIFICATION FORM: Dear : Homar Song Date / Time: 06/11/2020 0549 Please exercise your independent, professional judgment in responding to the clarification form. Clinical indicators are provided on the bottom of this form for your review Please check appropriate box(es): [ ] Sepsis due to Ureteral Stent [ X] Sepsis due to Candidal UTI related to Ureteral Stent obstruction [ ] Sepsis due to Candidal UTI not related to Ureteral Stent obstruction [ ] Other diagnosis [ ] Unable to determine Physician Signature: Date/Time: For continuity of documentation, please document condition throughout progress notes and discharge summary. Thank You. To be completed by CDI/Coding staff for physician review: Present Clinical Indicators - Signs / Symptoms / Labs Results and Location in Medical Record [X] WBC 14.9, Plt count 694, Neutrophils 87.1, Lactic acid 0.8 Laboratory 06/03 [X] Blood culture: No growth in 5 days Microbiology 06/03 [X] Urine culture: Presumptive Jasmyne albicans Microbiology 06/03 [X] BP 140/52, Pulse 69, resp 20, Temp 97.9 Vital signs 06/03 [X] SIRS scoring: yes pt did meet ED notes p2 06/03 [X] s/p stent placement and sepsis due to UTI which was treated 2 weeks ago H&P p1 06/03 Dr Cooney [X] Acute renal failure H&P p2 06/03 Dr Cooney [X] Metabolic encephalopatthy H&P p2 06/03 Dr Cooney [X] Anion gap metabolic acidosis H&P p2 06/03 Dr Cooney [X] Sepsis H&P p2 06/03 Dr Cooney [X] UTI H&P p2 06/03 Dr Cooney [X] Malfunction of stents due to obstructive uropathy and malignancy Consult Dr Melara 06/04 Present Risk Factors Results and Location in Medical Record [X] 75 year-old Male H&P p1 06/03 Dr Cooney [X] Prostate cancer and bladder cancer H&P p1 06/03 Dr Cooney [X] s/p ureteral stent H&P p1 06/03 Dr Cooney [X] Hx of obstructive uropathy H&P p2 06/03 Dr Cooney [X] UTI H&P p2 06/03 Dr Cooney [X] Malnutrition PN 06/10 [X] Former Smoker H&P p1 06/03 Dr Cooney Present Treatments Results and Location in Medical Record [X] IV Vancomycin 1.25 gm NOV 03 [X] IVF NS 1L NOV 03 [X] Meropenem 500 mg NOV 03 [X] IV Fluoconazole 100 mg NOV 03 [X] IV Cefazolin 2 gm NOV 03 [X] Blood culture Microbiology 06/03 [X] Urine culture Microbiology 06/03 [X] Nephrology consult Consult Dr Melara 06/04 [X] ID consult Consult Dr Palacios 06/04 [X] Greco inserted H&P p2 06/03 Dr Cooney CDS/Conservation Science Teacher Signature: Josiane Jordan Phone #: ext [phone] Date/Time: 06/11/2020 0549 This is a permanent part of the Medical Record [facility]
== END 2020-06-10 18:05 | disposition home or self-care (01) | DRG 659 ==
LOC: ERS 11:14 → 2NO 15:52
PROVIDERS: ADMIT Internal Medicine; ATTEND Internal Medicine
PROC: 3E02340 Introduction of Influenza Vaccine into Muscle, Percutaneous Approach (ICD-10-PCS; 2020-06-04)
PROC: 0T788DZ Dilation of Bilateral Ureters with Intraluminal Device, Via Natural or Artificial Opening Endoscopic (ICD-10-PCS; principal; 2020-06-07)
PROC: 0TP98DZ Removal of Intraluminal Device from Ureter, Via Natural or Artificial Opening Endoscopic (ICD-10-PCS; 2020-06-07)
PROC: BT14ZZZ Fluoroscopy of Kidneys, Ureters and Bladder (ICD-10-PCS; 2020-06-07)
PROC: 0T9B70Z Drainage of Bladder with Drainage Device, Via Natural or Artificial Opening (ICD-10-PCS; 2020-06-07)
DX: T83.592A Infection and inflammatory reaction due to indwelling ureteral stent, initial encounter (principal); G93.41 Metabolic encephalopathy; B37.7 Candidal sepsis; N17.9 Acute kidney failure, unspecified; E87.1 Hypo-osmolality and hyponatremia; E87.2 Acidosis; N13.6 Pyonephrosis; E46 Unspecified protein-calorie malnutrition; B37.49 Other urogenital candidiasis; T83.192A Other mechanical complication of indwelling ureteral stent, initial encounter; E87.5 Hyperkalemia; N18.30 Chronic kidney disease, stage 3 unspecified; D63.1 Anemia in chronic kidney disease; C61 Malignant neoplasm of prostate; Y83.1 Surgical operation with implant of artificial internal device as the cause of abnormal reaction of the patient, or of later complication, without mention of misadventure at the time of the procedure; Z20.828 Contact with and (suspected) exposure to other viral communicable diseases; E86.9 Volume depletion, unspecified; I25.10 Atherosclerotic heart disease of native coronary artery without angina pectoris; Z87.891 Personal history of nicotine dependence; Z88.0 Allergy status to penicillin; Z68.27 Body mass index [BMI] 27.0-27.9, adult; Z23 Encounter for immunization; Z79.899 Other long term (current) drug therapy; Z79.82 Long term (current) use of aspirin; Z79.02 Long term (current) use of antithrombotics/antiplatelets; Z95.5 Presence of coronary angioplasty implant and graft; Z87.440 Personal history of urinary (tract) infections
CPT/HCPCS: 36415; 74176; 74420; 76770; 80048; 80053; 80069; 80202; 81001; 81003; 81015; 82436; 83605; 84133; 84153; 84300; 84484; 85025; 86140; 87040; 87086; 87102; 87206; 87635; 90471; 90662; 93005; G0008; J0690; J1450; J1650; J1940; J2060; J2185; J2704; J3010; J3370; J3490; J7050; J7070; U0003

== ENCOUNTER 2020-06-11 11:10 | Emergency (ER) | payer MEDICARE, BC ==
--- NOTE | 2020-06-11 11:48 | CT ---
CT BRAIN WITHOUT CONTRAST: HISTORY:Altered mental status COMPARISON:05/17/2020 FINDINGS: There are foci of decreased attenuation in the periventricular white matter, consistent with mild chr onic small vessel ischemic disease. No evidence of acute infarct, hemorrhage, midline shift or abnormal extra-axial fluid collections is seen. The ventricular size is appropriate and the basilar cisterns are patent. The bony calvarium is intact. The visualized paranasal sinuses and mastoid air cells are well aerated. IMPRESSION: No CT evidence of acute intracranial process.
--- NOTE | 2020-06-11 11:53 | RAD ---
XR Chest 1 View Portable HISTORY: Altered mental status COMPARISON: 05/17/2020 FINDINGS: The heart size is normal. The lungs are well expanded without focal areas of consolidation, pneumothorax or pleural effusions. IMPRESSION: No radiographic evidence of acute cardiopulmonary process.
[2020-06-11 12:27] LABS: #Eosinphils 0.3 thou/uL (0.0-0.7); #Lymphocytes 0.9 thou/uL (1.20-3.40); #Monocytes 0.8 thou/uL (0.11-0.59); #Neutrophils 6.3 thou/uL (1.40-6.50); %Basophils 0.3 % (0.0-1.0); %Eosinophils 3.3 % (0.0-10.0); %Lymphocytes 11.2 % (21.0-51.0); %Monocytes 9.7 % (0.0-10.0); %Neutrophils 75.5 % (42.0-75.0); Hemoglobin 7.5 g/dL (14.0-18.0); Mean Corpuscular HGB CONC 32.6 g/dL (32.0-36.0); Mean Corpuscular Hemoglobin 29.5 pg (27.0-31.0); Mean Corpuscular Volume 90.6 fL (78.0-98.0); Mean Platelet Volume 6.2 fL (7.4-10.4); Platelet Count 536 thou/uL (130-400); RBC Distribution Width 14.6 % (11.5-14.5); Red Blood Cell (RBC) Count 2.55 mill/uL (4.70-6.10); White Blood Cell (WBC) Count 8.3 thou/uL (4.8-10.8)
[2020-06-11 12:31] LABS: Bilirubin Negative (Negative); Blood, Urine 2+ (Negative); Clarity Clear (Clear); Glucose, Urine (Dipstick) Normal (Negative); Ketone, Urine Negative (Negative); Leukocyte 500 Leu/uL (Negative); Nitrite Negative (Negative); Protein, Urine (Dipstick) 100 mg/dL (Neg-Trace); RBC/HPF Greater than 50 HPF (0-3); Specific Gravity, Urine 1.012 (1.002-1.036); Squamous Epithelial None Seen HPF (0-3); Urobilinogen Normal mg/dL (Less than 2); WBC/HPF Greater than 50 HPF (0-3)
[2020-06-11 12:37] LABS: Bacteria/HPF 2+ HPF (None Seen)
[2020-06-11 12:49] LABS: ALT (SGPT) 18 U/L (8-55); AST (SGOT) 25 U/L (5-34); Alkaline Phosphatase 85 U/L (40-110); Anion Gap 15 mmol/L (10-20); BUN (Urea Nitrogen) 50 mg/dL (8.4-25.7); Bilirubin, Total 0.2 mg/dL (0.2-1.2); Calc. Creatinine Clearance 0 mL/min (70-130); Calcium 8.6 mg/dL (7.8-10.44); Carbon Dioxide 23 mmol/L (23-31); Chloride 109 mmol/L (98-107); Estimated GFR-MDRD 34; Globulin 4.2 g/dL (2.4-3.5); Glucose 94 mg/dL (83-110); Lipase 36 U/L (8-78); Potassium 4.6 mmol/L (3.5-5.1); Protein, Total 7.2 g/dL (5.8-8.1); Sodium 142 mmol/L (136-145)
== END 2020-06-11 13:35 | disposition home or self-care (01) ==
LOC: ERS 11:10
DX: F03.90 Unspecified dementia, unspecified severity, without behavioral disturbance, psychotic disturbance, mood disturbance, and anxiety (principal); F32.9 Major depressive disorder, single episode, unspecified; Z87.891 Personal history of nicotine dependence; Z79.899 Other long term (current) drug therapy; Z79.82 Long term (current) use of aspirin; Z85.46 Personal history of malignant neoplasm of prostate; Z85.51 Personal history of malignant neoplasm of bladder
CPT/HCPCS: 70450; 71045; 80053; 81003; 81015; 83690; 84484; 85025; 87086; 93005

== ENCOUNTER 2020-09-09 10:21 | Outpatient (CLI) | payer MEDICARE, BC ==
--- NOTE | 2020-09-09 12:11 | CT ---
CT ABDOMEN AND PELVIS WITH AND WITHOUT IV CONTRAST HISTORY: Prostate cancer. Status post radiation therapy. Hematuria COMPARISON: Noncontrasted study of 06/03/2020 FINDINGS: The lung bases are clear. No calcified gallstones are seen. The liver, spleen, pancreas and adrenal g lands appear normal. The small bowel loops are not abnormally dilated. A normal-appearing appendix is present. There is colonic diverticulosis. Bilateral ureteral stents are again seen. Interval improvement of bilateral hydronephrosis. Proximal components of the stents are at the UPJ and the distal portions within the urinary bladder without kinking. No calculi are noted in the kidneys or ureters. No renal mass is seen. There is normal contr ast excretion into the ureters. 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 Periureteric and perinep hric inflammatory changes are again seen. There is no evidence of pneumoperitoneum or ascites. Retroperitoneal lymphadenopathy and enlarged lym ph nodes in the posterior mediastinum, posterior to the descending aorta are again seen. There are degenerative changes in the spine. Vascular calcifications are present without evidence of aneurysmal dilatation of the abdominal aorta. There are multiple sclerotic foci that have developed in the interim in the spine and pelvis. A new lytic lesion is seen in the left iliac bone. IMPRESSION: 1. Stable lymphadenopathy. 2. Interval development of osseous metastatic disease since 06/03/2020.
[2020-09-09] MEDS ORDERED: Iopamidol 370 76% 100 ML VIAL ONE (14:22)
--- NOTE | 2020-09-09 16:01 | NM ---
EXAM: NM Bone Scan STANDARD PROVIDED CLINICAL HISTORY: Malignant neoplasm of prostate COMPARISON: 09/23/2019 FINDINGS: There has been interval development of intense areas of increased uptake of radiotracer seen within e ach humerus, thoracic and lumbar spine, manubrium/left clavicular head with a view scattered areas of increased uptake of radiotracer within bilateral ribs in a pattern suggesting metastatic disease. Photopenic defects are again seen involving each femoral head and neck related to bilateral total hip prostheses. Focal areas of increased uptake of radiotracer are seen in the intertrochanteric regions of each hip which were not present on the prior exam. Findings could be related to metastatic lesions in these regions. Focus of increased uptake is seen in the region of the right acetabulum with asymmetric increased uptake in the right ilium near the right sacroiliac joint likely related to metastatic lesions as well. Expected activity is seen in each kidney small amount of activity in the urinary bladder. Mild symmetric uptake in each shoulder is likely attributable to degenerative change. IMPRESSION: Interval development of multiple osseous metastatic lesions as described above.
== END 2020-09-09 10:22 | disposition home or self-care (01) ==
LOC: CT 10:21
PROVIDERS: ATTEND Urology
DX: C61 Malignant neoplasm of prostate (principal); R59.0 Localized enlarged lymph nodes; C79.51 Secondary malignant neoplasm of bone
CPT/HCPCS: 74178; 78306; 82565; A9503; Q9967

== ENCOUNTER 2020-09-24 08:37 | Outpatient (CLI) | payer MEDICARE, BC ==
[2020-09-24 02:32] LABS: SARS-CoV-2 PCR by NAA Not Detected (NotDetected)
--- NOTE | 2020-09-24 15:55 | EKG ---
Test Reason : Blood Pressure : / mmHG Vent. Rate : 066 BPM Atrial Rate : 066 BPM P-R Int : 138 ms QRS Dur : 092 ms QT Int : 410 ms P-R-T Axes : 069 078 069 degrees QTc Int : 429 ms Normal sinus rhythm Normal ECG When compared with ECG of 11-JUN-2020 11:36, Criteria for Inferior infarct are no longer Present Nonspecific T wave abnormality no longer evident in Inferior leads Confirmed by DR. Marti COTA ([id number]) on 09/24/2020 3:55:42 PM Referred By: GODFREY Confirmed By:DR. Marti COTA
== END 2020-09-24 08:38 | disposition home or self-care (01) ==
LOC: LABBT 08:37
PROVIDERS: ATTEND Specialist
DX: Z01.818 Encounter for other preprocedural examination (principal); Z20.822 Contact with and (suspected) exposure to COVID-19; C61 Malignant neoplasm of prostate
CPT/HCPCS: U0003; U0005; 87635; 93005; 93010

== ENCOUNTER 2020-09-27 06:13 | Day surgery (SDC) | payer MEDICARE, BC ==
[2020-09-24 09:38] VITALS: BMI 25.0
[2020-09-27] MEDS ORDERED: EPINEPHrine 1 MG/ML AMP ONE (06:33)
[2020-09-27] MEDS ORDERED: Bupivacaine PF 0.5% 30 ML VIAL ONE (06:33)
[2020-09-27] MEDS ORDERED: Propofol 500 MG/50 ML VIAL ONE (06:36)
[2020-09-27] MEDS ORDERED: Midazolam HCl 2 mg/2 ml Vial ONE (06:36)
[2020-09-27] MEDS ORDERED: Fentanyl 100 MCG/2 ML VIAL ONE (06:36)
[2020-09-27] MEDS ORDERED: Ketorolac Tromethamine 30 MG/ML VIAL ONE (06:59)
[2020-09-27] MEDS ORDERED: Acetaminophen 500 MG TAB ONE (06:59)
[2020-09-27] MEDS ORDERED: Levofloxacin 500 mg/D5W 100 ml Premix Bag ONE (06:59)
--- NOTE | 2020-09-27 08:09 | OP ---
DATE OF PROCEDURE: 09/27/2020 PREOPERATIVE DIAGNOSES: Prostate cancer, metastatic, in need of IV access, antineoplastic chemotherapy access. POSTOPERATIVE DIAGNOSES: Prostate cancer, metastatic, in need of IV access, antineoplastic chemotherapy access. PROCEDURE PERFORMED: Right subclavian vein, low-profile MediPort. ANESTHESIA: Intravenous sedation, local 0.5% Marcaine, 30 mL mixed with 1% Xylocaine with epinephrine 20 mL. DESCRIPTION OF PROCEDURE: The patient was taken to the operating room, where under intravenous sedation chest and neck were prepared with ChloraPrep and draped in routine fashion. Local anesthetic mixture was infiltrated into the skin and subcutaneous tissue about the operative site. Trocar catheter cannulated into the subclavian vein, J-wire threaded, trocar catheter removed, skin sharply, subcutaneous pocket created with blunt and sharp dissection, gaining good hemostasis with cautery. Fluoroscopic images revealed the J-wire to be in the IJ. J-wire was manipulated into the superior vena cava. Dilator and Peel-Away sheath placed over the wire into the superior vena cava and dilator and J-wire removed. Catheter placed with Peel-Away sheath. Peel-Away sheath removed. Catheter tip positioned in the superior vena cava in optimal position and catheter tailored to length, connected to the low-profile MediPort, placed in subcutaneous pocket, and secured with 2 interrupted suture of 3-0 Prolene. Subcutaneous tissue was approximated with 3-0 Monocryl, skin with subdermal 4-0 Monocryl, and Vander glue applied. The patient tolerated the procedure well. Foreman needle accessed the low-profile MediPort, aspirated blood, flushed with heparinized saline solution . Job ID: [id number]
--- NOTE | 2020-09-27 08:28 | RAD ---
Portable frontal chest radiograph: 09/27/2020 COMPARISON: None HISTORY: Evaluate chest following placement of a Mediport FINDINGS: A right-sided Mediport is present, distal tip overlying the region of the SVC. No focal con solidation or alveolar edema. No pneumothorax noted. IMPRESSION: Right Mediport as above. No pneumothorax seen.
[2020-09-27] MEDS ORDERED: PROPOFOL 200 MG/20 ML VIAL ONE (09:46)
== END 2020-09-27 09:00 | disposition home or self-care (01) ==
LOC: SDC 06:13
PROVIDERS: ATTEND Specialist
PROC: 02HV33Z Insertion of Infusion Device into Superior Vena Cava, Percutaneous Approach (ICD-10-PCS; principal; 2020-09-27)
DX: C61 Malignant neoplasm of prostate (principal); C79.9 Secondary malignant neoplasm of unspecified site; Z79.02 Long term (current) use of antithrombotics/antiplatelets; Z79.82 Long term (current) use of aspirin; Z79.899 Other long term (current) drug therapy; Z87.891 Personal history of nicotine dependence; Z88.0 Allergy status to penicillin
CPT/HCPCS: 36561; 71045; C1788; J0171; J1642; J1885; J1956; J2250; J2704; J3010; S0020

== ENCOUNTER 2020-10-20 06:34 | Day surgery (SDC) | payer MEDICARE, BC ==
[2020-10-20] MEDS ORDERED: Sodium Chloride 0.9% 20 ML ONE (08:57)
[2020-10-20] MEDS ORDERED: diphenhydrAMINE 25 MG CAP PO SCH (09:00)
[2020-10-20] MEDS ORDERED: Acetaminophen 500 MG TAB PO SCH (09:00)
[2020-10-20 11:59] VITALS: BP 129/60; TEMP 98.3
[2020-10-20 12:05] LABS: #Lymphocytes 0.5 thou/uL (1.20-3.40); #Monocytes 0.3 thou/uL (0.11-0.59); #Neutrophils 13.8 thou/uL (1.40-6.50); %Eosinophils 0.2 % (0.0-10.0); %Lymphocytes 3.3 % (21.0-51.0); %Monocytes 2.1 % (0.0-10.0); %Neutrophils 94.4 % (42.0-75.0); Mean Corpuscular HGB CONC 31.8 g/dL (32.0-36.0); Mean Corpuscular Hemoglobin 28.2 pg (27.0-31.0); Mean Corpuscular Volume 88.7 fL (78.0-98.0); Mean Platelet Volume 6.2 fL (7.4-10.4); Platelet Count 410 thou/uL (130-400); RBC Distribution Width 16.7 % (11.5-14.5); Red Blood Cell (RBC) Count 2.84 mill/uL (4.70-6.10); White Blood Cell (WBC) Count 14.6 thou/uL (4.8-10.8)
== END 2020-10-20 12:27 | disposition home or self-care (01) ==
LOC: ONC/OP 06:34
PROVIDERS: ATTEND Internal Medicine Hematology & Oncology
PROC: 30233N1 Transfusion of Nonautologous Red Blood Cells into Peripheral Vein, Percutaneous Approach (ICD-10-PCS; principal; 2020-10-20)
DX: D64.9 Anemia, unspecified (principal); D69.6 Thrombocytopenia, unspecified; Z88.0 Allergy status to penicillin
CPT/HCPCS: 36430; 85025; 86850; 86900; 86901; J1642; P9016; Q0163

== ENCOUNTER 2020-11-07 01:46 | Inpatient (IN) | payer MEDICARE, BC ==
[2020-11-07] MEDS ORDERED: Acetaminophen 650 MG Suppository PR PRN (03:15)
[2020-11-07 04:29] VITALS: BMI 25.8
[2020-11-07] MEDS: Oxybutynin 5 MG TAB PO SCH ×3 (05:38→21:38)
[2020-11-07] MEDS ORDERED: HYDROcodone/Acetaminophen 5/325 mg Tablet PO PRN (07:01)
[2020-11-07] MEDS ORDERED: Ondansetron PF 4 MG/2 ML Vial IVP PRN (07:01)
[2020-11-07] MEDS ORDERED: Morphine 4 MG/ML VIAL SLOW IVP PRN (07:01)
[2020-11-07] MEDS ORDERED: Sodium Chloride 0.9% 1,000 ML IV SCH (07:15)
[2020-11-07] MEDS: Lorazepam 0.5 MG TAB PO SCH ×2 (07:16→21:38)
[2020-11-07 08:17] LABS: #Eosinphils 0.1 thou/uL (0.0-0.7); #Lymphocytes 0.8 thou/uL (1.20-3.40); #Monocytes 0.8 thou/uL (0.11-0.59); #Neutrophils 8.1 thou/uL (1.40-6.50); %Basophils 0.3 % (0.0-1.0); %Eosinophils 0.7 % (0.0-10.0); %Lymphocytes 8.1 % (21.0-51.0); %Monocytes 8.1 % (0.0-10.0); %Neutrophils 82.8 % (42.0-75.0); Hemoglobin 6.9 g/dL (14.0-18.0); Mean Corpuscular Hemoglobin 29.9 pg (27.0-31.0); Mean Corpuscular Volume 90.6 fL (78.0-98.0); Mean Platelet Volume 6.1 fL (7.4-10.4); Platelet Count 409 thou/uL (130-400); RBC Distribution Width 17.6 % (11.5-14.5); Red Blood Cell (RBC) Count 2.31 mill/uL (4.70-6.10); White Blood Cell (WBC) Count 9.8 thou/uL (4.8-10.8)
[2020-11-07 08:30] LABS: Lactic Acid 1.7 mmol/L (0.5-2.2)
[2020-11-07 08:37] LABS: ALT (SGPT) 14 U/L (8-55); AST (SGOT) 30 U/L (5-34); Albumin 3.1 g/dL (3.4-4.8); Alkaline Phosphatase 158 U/L (40-110); Anion Gap 15 mmol/L (10-20); BUN (Urea Nitrogen) 23 mg/dL (8.4-25.7); Bilirubin, Total 0.6 mg/dL (0.2-1.2); Calc. Creatinine Clearance 91 mL/min (70-130); Calcium 8.2 mg/dL (7.8-10.44); Carbon Dioxide 19 mmol/L (23-31); Chloride 108 mmol/L (98-107); Globulin 2.2 g/dL (2.4-3.5); Glucose 112 mg/dL (83-110); Magnesium 1.6 mg/dL (1.6-2.6); Potassium 3.9 mmol/L (3.5-5.1); Protein, Total 5.3 g/dL (5.8-8.1); Sodium 138 mmol/L (136-145)
[2020-11-07] MEDS: cefTRIAXone\\ROCEPHIN 1 GM in Sodium Chloride 0.9% 100 ML IVPB SCH (10:14)
[2020-11-07] MEDS: Phenazopyridine HCl 100 MG TAB PO SCH ×3 (10:15→17:07)
[2020-11-07] MEDS ORDERED: traMADol HCl 50 MG TAB PO PRN (14:05)
[2020-11-07] MEDS: Fluconazole In NaCl,Iso-Osm 200 MG in Premix Bag 1 BAG IVPB SCH (15:41)
[2020-11-07] MEDS: Atorvastatin Calcium 40 MG TAB PO SCH (17:07)
[2020-11-07] MEDS: Tamsulosin HCl 0.4 MG CAP PO SCH (21:38)
[2020-11-08] MEDS ORDERED: Bisacodyl 5 MG TAB PO PRN (07:43)
[2020-11-08] MEDS ORDERED: hydrALAZINE 20 MG/ML VIAL SLOW IVP PRN (07:43)
[2020-11-08] MEDS ORDERED: Loratadine 10 MG TAB PO PRN (07:43)
[2020-11-08] MEDS ORDERED: Loperamide HCl 2 MG CAP PO PRN (07:43)
[2020-11-08] MEDS ORDERED: Benzonatate 100 MG CAP PO PRN (07:43)
[2020-11-08] MEDS ORDERED: Calcium Carbonate 500 MG ChewTAB PO PRN (07:43)
[2020-11-08] MEDS ORDERED: GUAIFENESIN SF SOLN 200 MG/10 ML UDCUP PO PRN (07:43)
[2020-11-08] MEDS ORDERED: Sodium Chloride 0.65% Nasal 44 ML BOT EA NARE PRN (07:43)
[2020-11-08] MEDS ORDERED: Cepastat Lozenges 1 LOZ PO PRN (07:43)
[2020-11-08] MEDS ORDERED: Metoclopramide HCl 10 MG/2 ML VIAL IVP PRN (07:43)
[2020-11-08] MEDS ORDERED: Zolpidem Tartrate 5 MG TAB PO PRN (07:43)
[2020-11-08] MEDS: Phenazopyridine HCl 100 MG TAB PO SCH ×3 (09:07→17:09)
[2020-11-08] MEDS: Lorazepam 0.5 MG TAB PO SCH ×2 (09:07→20:29)
[2020-11-08] MEDS: Oxybutynin 5 MG TAB PO SCH ×2 (09:07→20:29)
[2020-11-08] MEDS: cefTRIAXone\\ROCEPHIN 1 GM in Sodium Chloride 0.9% 100 ML IVPB SCH (09:08)
[2020-11-08] MEDS ORDERED: Fluconazole In NaCl,Iso-Osm 200 MG in Premix Bag 1 BAG IVPB SCH (15:00)
[2020-11-08] MEDS: Senokot S 8.6-50 MG TAB PO PRN (17:09)
[2020-11-08] MEDS: Atorvastatin Calcium 40 MG TAB PO SCH (17:10)
[2020-11-08] MEDS: Fluconazole In NaCl,Iso-Osm 200 MG in Premix Bag 1 BAG IVPB SCH (17:10)
[2020-11-08] MEDS: Tamsulosin HCl 0.4 MG CAP PO SCH (20:29)
[2020-11-09 06:27] LABS: #Eosinphils 0.1 thou/uL (0.0-0.7); #Lymphocytes 1.7 thou/uL (1.20-3.40); #Monocytes 1.6 thou/uL (0.11-0.59); #Neutrophils 9.3 thou/uL (1.40-6.50); %Basophils 0.3 % (0.0-1.0); %Eosinophils 0.8 % (0.0-10.0); %Lymphocytes 13.3 % (21.0-51.0); %Monocytes 12.2 % (0.0-10.0); %Neutrophils 73.4 % (42.0-75.0); Hemoglobin 7.5 g/dL (14.0-18.0); Mean Corpuscular HGB CONC 31.9 g/dL (32.0-36.0); Mean Corpuscular Hemoglobin 29.4 pg (27.0-31.0); Mean Corpuscular Volume 92.2 fL (78.0-98.0); Mean Platelet Volume 5.8 fL (7.4-10.4); Platelet Count 496 thou/uL (130-400); RBC Distribution Width 17.8 % (11.5-14.5); Red Blood Cell (RBC) Count 2.55 mill/uL (4.70-6.10); White Blood Cell (WBC) Count 12.7 thou/uL (4.8-10.8)
[2020-11-09 06:55] LABS: ALT (SGPT) 13 U/L (8-55); AST (SGOT) 42 U/L (5-34); Albumin 3.2 g/dL (3.4-4.8); Alkaline Phosphatase 235 U/L (40-110); Anion Gap 15 mmol/L (10-20); BUN (Urea Nitrogen) 13 mg/dL (8.4-25.7); Bilirubin, Total 0.5 mg/dL (0.2-1.2); Calc. Creatinine Clearance 86 mL/min (70-130); Calcium 8.7 mg/dL (7.8-10.44); Carbon Dioxide 22 mmol/L (23-31); Chloride 109 mmol/L (98-107); Globulin 2.7 g/dL (2.4-3.5); Glucose 95 mg/dL (83-110); Potassium 4.1 mmol/L (3.5-5.1); Protein, Total 5.9 g/dL (5.8-8.1); Sodium 142 mmol/L (136-145)
[2020-11-09] MEDS: Oxybutynin 5 MG TAB PO SCH ×2 (08:33→21:01)
[2020-11-09] MEDS: cefTRIAXone\\ROCEPHIN 1 GM in Sodium Chloride 0.9% 100 ML IVPB SCH (08:33)
[2020-11-09] MEDS: Phenazopyridine HCl 100 MG TAB PO SCH ×3 (08:33→17:07)
[2020-11-09] MEDS: Lorazepam 0.5 MG TAB PO SCH ×2 (08:33→21:01)
[2020-11-09] MEDS: Fluconazole In NaCl,Iso-Osm 200 MG in Premix Bag 1 BAG IVPB SCH (17:06)
[2020-11-09] MEDS: Atorvastatin Calcium 40 MG TAB PO SCH (17:07)
[2020-11-09] MEDS: Acetaminophen 325 MG TAB PO PRN (19:58)
[2020-11-09] MEDS: Senokot S 8.6-50 MG TAB PO PRN (21:01)
[2020-11-09] MEDS: Tamsulosin HCl 0.4 MG CAP PO SCH (21:01)
[2020-11-09] MEDS: Cefepime 2 GM in Sodium Chloride 0.9% 100 ML IVPB SCH (22:23)
[2020-11-09] MEDS ORDERED: Vancomycin 1 GM in Premix Bag 1 BAG IVPB SCH (22:45)
[2020-11-09] MEDS ORDERED: VANCOMYCIN 2 GRAM/400 ML BAG 2 GM in Premix Bag 1 BAG IVPB SCH (23:00)
[2020-11-10] MEDS: Cefepime 2 GM in Sodium Chloride 0.9% 100 ML IVPB SCH ×2 (09:14→22:02)
[2020-11-10] MEDS: Phenazopyridine HCl 100 MG TAB PO SCH ×3 (09:15→18:48)
[2020-11-10] MEDS: Oxybutynin 5 MG TAB PO SCH ×2 (09:15→20:10)
[2020-11-10] MEDS: Famotidine 20 MG TAB PO SCH ×2 (09:15→20:11)
[2020-11-10] MEDS: Lorazepam 0.5 MG TAB PO SCH ×2 (09:15→20:10)
[2020-11-10] MEDS: Saccharomyces boulardii 250 MG CAP PO SCH (09:15)
[2020-11-10] MEDS: VANCOMYCIN 1.25 GM/250 ML BAG 1.25 GM in Premix Bag 1 BAG IVPB SCH ×3 (10:50→23:04)
[2020-11-10] MEDS: Fluconazole In NaCl,Iso-Osm 200 MG in Premix Bag 1 BAG IVPB SCH (16:39)
[2020-11-10] MEDS: Atorvastatin Calcium 40 MG TAB PO SCH (16:39)
[2020-11-10] MEDS: Tamsulosin HCl 0.4 MG CAP PO SCH (20:09)
[2020-11-11] MEDS: Senokot S 8.6-50 MG TAB PO PRN (02:17)
[2020-11-11 05:31] LABS: #Basophils 0.1 thou/uL (0.0-0.2); #Eosinphils 0.2 thou/uL (0.0-0.7); #Lymphocytes 1.3 thou/uL (1.20-3.40); #Neutrophils 8.5 thou/uL (1.40-6.50); %Basophils 0.5 % (0.0-1.0); %Eosinophils 1.4 % (0.0-10.0); %Lymphocytes 11.9 % (21.0-51.0); %Monocytes 8.8 % (0.0-10.0); %Neutrophils 77.3 % (42.0-75.0); Hemoglobin 6.8 g/dL (14.0-18.0); Mean Corpuscular HGB CONC 31.2 g/dL (32.0-36.0); Mean Corpuscular Hemoglobin 28.5 pg (27.0-31.0); Mean Corpuscular Volume 91.4 fL (78.0-98.0); Mean Platelet Volume 5.8 fL (7.4-10.4); Platelet Count 453 thou/uL (130-400); RBC Distribution Width 16.8 % (11.5-14.5); Red Blood Cell (RBC) Count 2.39 mill/uL (4.70-6.10); White Blood Cell (WBC) Count 10.9 thou/uL (4.8-10.8)
[2020-11-11 05:49] LABS: Anion Gap 13 mmol/L (10-20); BUN (Urea Nitrogen) 18 mg/dL (8.4-25.7); Calc. Creatinine Clearance 80 mL/min (70-130); Calcium 8.5 mg/dL (7.8-10.44); Carbon Dioxide 22 mmol/L (23-31); Chloride 109 mmol/L (98-107); Glucose 104 mg/dL (83-110); Sodium 140 mmol/L (136-145)
[2020-11-11] MEDS: Saccharomyces boulardii 250 MG CAP PO SCH (09:28)
[2020-11-11] MEDS: Lorazepam 0.5 MG TAB PO SCH ×2 (09:28→21:12)
[2020-11-11] MEDS: Oxybutynin 5 MG TAB PO SCH ×2 (09:28→21:12)
[2020-11-11] MEDS: Cefepime 2 GM in Sodium Chloride 0.9% 100 ML IVPB SCH ×2 (09:28→23:24)
[2020-11-11] MEDS: Phenazopyridine HCl 100 MG TAB PO SCH ×3 (09:28→17:34)
[2020-11-11] MEDS: Famotidine 20 MG TAB PO SCH ×2 (09:28→21:12)
[2020-11-11 10:49] LABS: Vancomycin, Trough 23.6 ug/mL
[2020-11-11] MEDS: Vancomycin 1 GM in Premix Bag 1 BAG IVPB SCH (11:17)
[2020-11-11] MEDS: Fluconazole In NaCl,Iso-Osm 200 MG in Premix Bag 1 BAG IVPB SCH (15:28)
[2020-11-11] MEDS: Acetaminophen 325 MG TAB PO PRN (17:34)
[2020-11-11] MEDS: Atorvastatin Calcium 40 MG TAB PO SCH (17:34)
[2020-11-11] MEDS: Tamsulosin HCl 0.4 MG CAP PO SCH (21:12)
[2020-11-12] MEDS: Vancomycin 1 GM in Premix Bag 1 BAG IVPB SCH ×2 (00:18→12:56)
[2020-11-12] MEDS: Famotidine 20 MG TAB PO SCH ×2 (08:59→20:44)
[2020-11-12] MEDS: Saccharomyces boulardii 250 MG CAP PO SCH (08:59)
[2020-11-12] MEDS: Oxybutynin 5 MG TAB PO SCH ×2 (08:59→20:44)
[2020-11-12] MEDS: Lorazepam 0.5 MG TAB PO SCH ×2 (08:59→20:44)
[2020-11-12] MEDS: Phenazopyridine HCl 100 MG TAB PO SCH ×3 (09:00→19:29)
[2020-11-12] MEDS: Cefepime 2 GM in Sodium Chloride 0.9% 100 ML IVPB SCH (11:11)
[2020-11-12 11:35] LABS: #Eosinphils 0.2 thou/uL (0.0-0.7); #Monocytes 1.2 thou/uL (0.11-0.59); #Neutrophils 7.7 thou/uL (1.40-6.50); %Basophils 0.1 % (0.0-1.0); %Lymphocytes 9.6 % (21.0-51.0); %Monocytes 12.1 % (0.0-10.0); %Neutrophils 76.3 % (42.0-75.0); Hemoglobin 8.3 g/dL (14.0-18.0); Mean Corpuscular HGB CONC 32.6 g/dL (32.0-36.0); Mean Corpuscular Hemoglobin 29.4 pg (27.0-31.0); Mean Corpuscular Volume 90.4 fL (78.0-98.0); Platelet Count 467 thou/uL (130-400); RBC Distribution Width 16.1 % (11.5-14.5); Red Blood Cell (RBC) Count 2.83 mill/uL (4.70-6.10)
[2020-11-12 11:59] LABS: Anion Gap 13 mmol/L (10-20); BUN (Urea Nitrogen) 18 mg/dL (8.4-25.7); Calc. Creatinine Clearance 85 mL/min (70-130); Calcium 8.4 mg/dL (7.8-10.44); Carbon Dioxide 22 mmol/L (23-31); Chloride 110 mmol/L (98-107); Glucose 102 mg/dL (83-110); Potassium 3.8 mmol/L (3.5-5.1); Sodium 141 mmol/L (136-145)
[2020-11-12] MEDS: Fluconazole In NaCl,Iso-Osm 200 MG in Premix Bag 1 BAG IVPB SCH (17:32)
[2020-11-12] MEDS ORDERED: ALPRAZolam 0.25 MG TAB PO PRN (17:45)
[2020-11-12] MEDS: Atorvastatin Calcium 40 MG TAB PO SCH (19:28)
[2020-11-12] MEDS: Acetaminophen 325 MG TAB PO PRN (19:28)
[2020-11-12] MEDS: Tamsulosin HCl 0.4 MG CAP PO SCH (20:44)
[2020-11-12 22:31] LABS: Vancomycin, Trough 25.7 ug/mL
[2020-11-13] MEDS: Oxybutynin 5 MG TAB PO SCH ×2 (09:38→20:26)
[2020-11-13] MEDS: Saccharomyces boulardii 250 MG CAP PO SCH (09:38)
[2020-11-13] MEDS: Famotidine 20 MG TAB PO SCH ×2 (09:38→20:26)
[2020-11-13] MEDS: Lorazepam 0.5 MG TAB PO SCH ×2 (09:42→20:27)
[2020-11-13] MEDS: Phenazopyridine HCl 100 MG TAB PO SCH ×3 (09:43→19:56)
[2020-11-13] MEDS ORDERED: Fluconazole In NaCl,Iso-Osm 400 MG in Premix Bag 1 BAG IVPB SCH (16:00)
[2020-11-13] MEDS: Senokot S 8.6-50 MG TAB PO PRN (17:52)
[2020-11-13] MEDS: Atorvastatin Calcium 40 MG TAB PO SCH (18:56)
[2020-11-13] MEDS: Tamsulosin HCl 0.4 MG CAP PO SCH (20:26)
[2020-11-14] MEDS: Phenazopyridine HCl 100 MG TAB PO SCH (08:33)
[2020-11-14] MEDS: Saccharomyces boulardii 250 MG CAP PO SCH (08:33)
[2020-11-14] MEDS: Famotidine 20 MG TAB PO SCH (08:33)
[2020-11-14] MEDS: Oxybutynin 5 MG TAB PO SCH (08:34)
[2020-11-14] MEDS: Lorazepam 0.5 MG TAB PO SCH (08:34)
[2020-11-14 09:33] VITALS: BP 164/77; TEMP 97.6
== END 2020-11-14 12:30 | disposition home or self-care (01) | DRG 872 ==
LOC: ONC 01:46
PROVIDERS: ADMIT Student in an Organized Health Care Education/Training Program; ATTEND Internal Medicine
PROC: 30233N1 Transfusion of Nonautologous Red Blood Cells into Peripheral Vein, Percutaneous Approach (ICD-10-PCS; principal; 2020-11-07)
PROC: 0T9B70Z Drainage of Bladder with Drainage Device, Via Natural or Artificial Opening (ICD-10-PCS; 2020-11-07)
DX: A41.51 Sepsis due to Escherichia coli [E. coli] (principal); D62 Acute posthemorrhagic anemia; C79.9 Secondary malignant neoplasm of unspecified site; N17.9 Acute kidney failure, unspecified; R31.0 Gross hematuria; R65.20 Severe sepsis without septic shock; Z20.822 Contact with and (suspected) exposure to COVID-19; Z66 Do not resuscitate; I25.10 Atherosclerotic heart disease of native coronary artery without angina pectoris; K27.9 Peptic ulcer, site unspecified, unspecified as acute or chronic, without hemorrhage or perforation; F32.9 Major depressive disorder, single episode, unspecified; N18.9 Chronic kidney disease, unspecified; D64.81 Anemia due to antineoplastic chemotherapy; T45.1X5A Adverse effect of antineoplastic and immunosuppressive drugs, initial encounter; C61 Malignant neoplasm of prostate; Z88.0 Allergy status to penicillin; Z79.82 Long term (current) use of aspirin; Z95.5 Presence of coronary angioplasty implant and graft; Z79.899 Other long term (current) drug therapy; R31.9 Hematuria, unspecified; R33.9 Retention of urine, unspecified; D64.9 Anemia, unspecified
CPT/HCPCS: 36415; 36430; 51702; 71045; 80048; 80053; 80202; 81003; 81015; 83605; 83735; 84145; 84153; 85025; 86850; 86900; 86901; 87040; 87077; 87086; 93005; 96374; J0692; J0696; J1450; J1642; J2060; J2270; J3370; J3490; P9016; U0002

== ENCOUNTER 2020-12-21 10:09 | Outpatient (CLI) | payer MEDICARE, BC ==
[2020-12-21 15:07] LABS: Anion Gap 17 mmol/L (10-20); BUN (Urea Nitrogen) 40 mg/dL (8.4-25.7); Calc. Creatinine Clearance 0 mL/min (70-130); Calcium 8.7 mg/dL (7.8-10.44); Carbon Dioxide 21 mmol/L (23-31); Chloride 104 mmol/L (98-107); Glucose 118 mg/dL (83-110); Potassium 4.6 mmol/L (3.5-5.1); Sodium 137 mmol/L (136-145)
[2020-12-21 15:43] LABS: Hemoglobin 8.3 g/dL (13.5-17.5); Mean Corpuscular HGB CONC 31.3 g/dL (32.0-36.0); Mean Corpuscular Hemoglobin 26.7 pg (27.0-33.0); Mean Corpuscular Volume 85.2 fl (81.2-95.1); Platelet Count 430 10x3/uL (150-450); RBC Distribution Width 19.7 % (11.5-14.5); Red Blood Cell (RBC) Count 3.11 10x6/uL (4.32-5.72); White Blood Cell (WBC) Count 9.5 10x3/uL (3.5-10.5)
[2020-12-22 04:50] LABS: SARS-CoV-2 PCR by NAA Not Detected (NotDetected)
== END 2020-12-21 10:10 | disposition home or self-care (01) ==
LOC: LABBT 10:09
PROVIDERS: ATTEND Urology
DX: Z01.818 Encounter for other preprocedural examination (principal); Z20.822 Contact with and (suspected) exposure to COVID-19; N40.1 Benign prostatic hyperplasia with lower urinary tract symptoms; R33.9 Retention of urine, unspecified; C61 Malignant neoplasm of prostate; N13.5 Crossing vessel and stricture of ureter without hydronephrosis
CPT/HCPCS: 80048; 85027; 93005; U0003; U0005; 87635; 93010

== ENCOUNTER 2020-12-24 06:01 | Day surgery (SDC) | payer MEDICARE, BC ==
[2020-12-23 13:54] VITALS: BMI 26.6
[2020-12-24] MEDS ORDERED: Levofloxacin 500 mg/D5W 100 ml Premix Bag ONE (06:34)
[2020-12-24] MEDS ORDERED: Iothalamate Meglumine 60% 50 ML VIAL FS ONE (07:13)
[2020-12-24] MEDS ORDERED: Fentanyl 100 MCG/2 ML VIAL ONE (07:44)
[2020-12-24] MEDS ORDERED: Lidocaine 1% PF 5 ML VIAL ONE (08:09)
[2020-12-24] MEDS ORDERED: PROPOFOL 200 MG/20 ML VIAL ONE (08:09)
[2020-12-24] MEDS ORDERED: Ondansetron PF 4 MG/2 ML Vial ONE (08:09)
[2020-12-24] MEDS ORDERED: Dexamethasone 20 MG/5 ML VIAL ONE (08:09)
[2020-12-24] MEDS ORDERED: Ketorolac Tromethamine 30 MG/ML VIAL ONE (09:24)
[2020-12-24] MEDS ORDERED: Phenazopyridine HCl 100 MG TAB ONE (09:24)
[2020-12-24] MEDS ORDERED: Oxybutynin 5 MG TAB ONE (09:24)
== END 2020-12-24 13:51 | disposition home or self-care (01) ==
LOC: SDC 06:01
PROVIDERS: ATTEND Urology
PROC: 0T788DZ Dilation of Bilateral Ureters with Intraluminal Device, Via Natural or Artificial Opening Endoscopic (ICD-10-PCS; principal; 2020-12-24)
PROC: 0TP98DZ Removal of Intraluminal Device from Ureter, Via Natural or Artificial Opening Endoscopic (ICD-10-PCS; 2020-12-24)
DX: N13.1 Hydronephrosis with ureteral stricture, not elsewhere classified (principal); N40.1 Benign prostatic hyperplasia with lower urinary tract symptoms; N13.8 Other obstructive and reflux uropathy; R39.15 Urgency of urination; C61 Malignant neoplasm of prostate; E78.00 Pure hypercholesterolemia, unspecified; I11.9 Hypertensive heart disease without heart failure; Z87.891 Personal history of nicotine dependence; Z79.899 Other long term (current) drug therapy; Z88.0 Allergy status to penicillin; Z95.5 Presence of coronary angioplasty implant and graft
CPT/HCPCS: 52332; 74420; Q9961; J1100; J1885; J1956; J2405; J2704; J3010

== ENCOUNTER 2021-02-14 14:56 | Outpatient (CLI) | payer MEDICARE, BC | END 2021-02-14 14:57 | disposition home or self-care (01) | LOC: BICULT 14:56 | PROVIDERS: ATTEND Internal Medicine Hematology & Oncology | DX: M79.605 Pain in left leg (principal); R60.0 Localized edema; C61 Malignant neoplasm of prostate ==

== ENCOUNTER 2021-02-15 08:15 | Day surgery (SDC) | payer MEDICARE, BC ==
[2021-02-15] MEDS ORDERED: Sodium Chloride 0.9% 20 ML ONE (08:45)
[2021-02-15] MEDS ORDERED: diphenhydrAMINE 25 MG CAP PO SCH (09:15)
[2021-02-15] MEDS ORDERED: Acetaminophen 500 MG TAB PO SCH (09:15)
[2021-02-15 15:37] VITALS: BP 136/70; TEMP 97.8
== END 2021-02-15 15:47 | disposition home or self-care (01) ==
LOC: ONC/OP 08:15
PROVIDERS: ATTEND Internal Medicine Hematology & Oncology
PROC: 30233N1 Transfusion of Nonautologous Red Blood Cells into Peripheral Vein, Percutaneous Approach (ICD-10-PCS; principal; 2021-02-15)
DX: D64.9 Anemia, unspecified (principal); D69.6 Thrombocytopenia, unspecified; Z88.0 Allergy status to penicillin
CPT/HCPCS: 36430; 86850; 86900; 86901; 93005; 93010; 99212; G0463; J1642; P9016; Q0163

== ENCOUNTER 2021-02-19 10:59 | Inpatient (IN) | payer MEDICARE, BC ==
[2021-02-19 11:45] LABS: Hemoglobin 9.8 g/dL (14.0-18.0); Mean Corpuscular HGB CONC 31.7 g/dL (32.0-36.0); Mean Corpuscular Hemoglobin 28.3 pg (27.0-31.0); Mean Corpuscular Volume 89.1 fL (78.0-98.0); RBC Distribution Width 18.1 % (11.5-14.5); Red Blood Cell (RBC) Count 3.46 mill/uL (4.70-6.10)
[2021-02-19 12:02] LABS: Band 1 % (5-11); Burr Cells SLIGHT = 2-5 cells (100X) (0-1/hpf); Hypersemented Neutrophil SLIGHT; Lymphocytes 1 % (21-51); MDiff Complete? YES; Mean Platelet Volume 6.7 fL (7.4-10.4); Monocytes 11 % (0-10); Neutrophil 87 % (42-75); Platelet Count 415 thou/uL (130-400); Platelet Morphology Comment Appears Increased; Polychromasia SLIGHT = 2-3 cells (100X) (0-2/hpf); Vacuoles SLIGHT; White Blood Cell (WBC) Count 20.6 thou/uL (4.8-10.8)
[2021-02-19 12:12] LABS: ALT (SGPT) 59 U/L (8-55); AST (SGOT) 158 U/L (5-34); Albumin 2.4 g/dL (3.4-4.8); Alkaline Phosphatase 456 U/L (40-110); BUN (Urea Nitrogen) 29 mg/dL (8.4-25.7); Bilirubin, Total 0.8 mg/dL (0.2-1.2); Calc. Creatinine Clearance 0 mL/min (70-130); Calcium 8.4 mg/dL (7.8-10.44); Globulin 2.6 g/dL (2.4-3.5); Glucose 78 mg/dL (83-110); Magnesium 1.7 mg/dL (1.6-2.6)
[2021-02-19 12:30] LABS: Chloride 110 mmol/L (98-107); Sodium 142 mmol/L (136-145)
[2021-02-19 12:47] LABS: Bilirubin Small (Negative); Blood, Urine Large (Negative); Glucose, Urine (Dipstick) Negative (Negative); Ketone, Urine 15 mg/dL (Negative); Leukocyte Large (Negative); Nitrite Negative (Negative); Protein, Urine (Dipstick) 100 mg/dL (Neg-Trace); Specific Gravity, Urine 1.015 (1.005-1.030); Urobilinogen 0.2 mg/dL (Less than 2); pH, Urine 5.5 (5.0-9.0)
[2021-02-19 12:55] LABS: Bacteria/HPF 1+ HPF (None Seen); Clarity t (Clear); RBC/HPF Greater than 50 HPF (0-3); Squamous Epithelial None Seen HPF (0-3); WBC/HPF 21-50 HPF (0-3); Yeast-Budding 1+ HPF (None Seen); Yeast-Hyphae 1+ HPF (None Seen)
[2021-02-19] MEDS ORDERED: cefTRIAXone\\ROCEPHIN 2 GM VIAL ONE (15:00)
[2021-02-19] MEDS ORDERED: Azithromycin 500 MG VIAL ONE (15:13)
[2021-02-19 17:19] LABS: Anion Gap 21 mmol/L (10-20); Carbon Dioxide 12 mmol/L (23-31)
[2021-02-19] MEDS ORDERED: hydrALAZINE 20 MG/ML VIAL SLOW IVP PRN (17:49)
[2021-02-19] MEDS ORDERED: Acetaminophen 500 MG TAB PO PRN (17:49)
[2021-02-19] MEDS ORDERED: Ondansetron ODT 4 MG TAB PO PRN (17:49)
[2021-02-19] MEDS ORDERED: Ondansetron PF 4 MG/2 ML Vial IVP PRN (17:49)
[2021-02-19] MEDS ORDERED: Fluconazole In NaCl,Iso-Osm 100 MG, Admixture Fee 1 EACH in Premix Bag 1 BAG IVPB SCH (18:00)
[2021-02-19 18:09] VITALS: BMI 24.6
[2021-02-19] MEDS: Sodium Chloride 0.9% 1,000 ML IV SCH (18:50)
[2021-02-19] MEDS: Fluconazole In NaCl,Iso-Osm 100 MG in Admixture Fee 1 EACH IVPB SCH (19:30)
[2021-02-19] MEDS: Communication Order-Pharmacy FS SCH (19:39)
[2021-02-19] MEDS: Tamsulosin HCl 0.4 MG CAP PO SCH (20:36)
[2021-02-19] MEDS: Famotidine 20 MG TAB PO SCH (20:37)
[2021-02-19] MEDS: Oxybutynin 5 MG TAB PO SCH (20:37)
[2021-02-19] MEDS ORDERED: Vancomycin 1 GM in Premix Bag 1 BAG IVPB SCH (21:00)
[2021-02-20] MEDS: Sodium Chloride 0.9% 1,000 ML IV SCH ×2 (04:19→15:19)
[2021-02-20 04:39] LABS: #Lymphocytes 0.7 thou/uL (1.20-3.40); #Monocytes 1.8 thou/uL (0.11-0.59); %Eosinophils 0.3 % (0.0-10.0); %Lymphocytes 3.7 % (21.0-51.0); %Monocytes 9.6 % (0.0-10.0); %Neutrophils 86.4 % (42.0-75.0); Hemoglobin 9.3 g/dL (14.0-18.0); Mean Corpuscular HGB CONC 31.6 g/dL (32.0-36.0); Mean Corpuscular Hemoglobin 28.2 pg (27.0-31.0); Mean Corpuscular Volume 89.5 fL (78.0-98.0); Mean Platelet Volume 6.5 fL (7.4-10.4); Platelet Count 436 thou/uL (130-400); RBC Distribution Width 18.3 % (11.5-14.5); White Blood Cell (WBC) Count 18.5 thou/uL (4.8-10.8)
[2021-02-20 05:02] LABS: ALT (SGPT) 55 U/L (8-55); AST (SGOT) 126 U/L (5-34); Albumin 2.2 g/dL (3.4-4.8); Alkaline Phosphatase 405 U/L (40-110); Anion Gap 14 mmol/L (10-20); BUN (Urea Nitrogen) 31 mg/dL (8.4-25.7); Bilirubin, Total 0.5 mg/dL (0.2-1.2); Calc. Creatinine Clearance 82 mL/min (70-130); Calcium 8.5 mg/dL (7.8-10.44); Carbon Dioxide 17 mmol/L (23-31); Chloride 114 mmol/L (98-107); Globulin 2.6 g/dL (2.4-3.5); Glucose 84 mg/dL (83-110); Protein, Total 4.8 g/dL (5.8-8.1); Sodium 142 mmol/L (136-145)
[2021-02-20 05:07] LABS: Potassium 2.9 mmol/L (3.5-5.1)
[2021-02-20] MEDS ORDERED: Electrolyte Replacement Protocol 1 EACH FS SCH (05:15)
[2021-02-20] MEDS: Potassium Chloride 20 MEQ TAB PO SCH ×2 (05:31→08:56)
[2021-02-20] MEDS ORDERED: Electrolyte Replacement Protocol FS PRN (08:30)
[2021-02-20] MEDS: Ferrous Sulfate 325 MG TAB PO SCH (08:55)
[2021-02-20] MEDS: Oxybutynin 5 MG TAB PO SCH ×2 (08:56→21:58)
[2021-02-20] MEDS: Amlodipine 10 MG TAB PO SCH (08:56)
[2021-02-20] MEDS: Saccharomyces boulardii 250 MG CAP PO SCH (08:56)
[2021-02-20] MEDS: Famotidine 20 MG TAB PO SCH ×2 (08:56→21:58)
[2021-02-20] MEDS: Stress 600 With Zinc 1 TAB PO SCH (08:57)
[2021-02-20] MEDS ORDERED: Magnesium 2 GM/50 ML 2 GM in Premix Bag 1 BAG IVPB SCH (09:00)
[2021-02-20] MEDS: Vancomycin 1 GM in Premix Bag 1 BAG IVPB SCH ×2 (10:24→21:58)
[2021-02-20 13:54] LABS: Anion Gap 15 mmol/L (10-20); BUN (Urea Nitrogen) 30 mg/dL (8.4-25.7); Calc. Creatinine Clearance 81 mL/min (70-130); Calcium 8.5 mg/dL (7.8-10.44); Carbon Dioxide 16 mmol/L (23-31); Chloride 114 mmol/L (98-107); Glucose 107 mg/dL (83-110); Potassium 3.6 mmol/L (3.5-5.1); Sodium 141 mmol/L (136-145)
[2021-02-20] MEDS: cefTRIAXone\\ROCEPHIN 2 GM in Sodium Chloride 0.9% 100 ML IVPB SCH (15:19)
[2021-02-20] MEDS: Communication Order-Pharmacy FS SCH (16:36)
[2021-02-20] MEDS: Fluconazole In NaCl,Iso-Osm 100 MG in Admixture Fee 1 EACH IVPB SCH (19:33)
[2021-02-20] MEDS: Tamsulosin HCl 0.4 MG CAP PO SCH (21:58)
[2021-02-21] MEDS: Sodium Chloride 0.9% 1,000 ML IV SCH ×2 (02:46→16:20)
[2021-02-21] MEDS ORDERED: Magnesium 2 GM/50 ML 2 GM in Premix Bag 1 BAG IVPB SCH (07:30)
[2021-02-21 09:16] LABS: Vancomycin, Trough 19.1 ug/mL
[2021-02-21] MEDS: Oxybutynin 5 MG TAB PO SCH ×2 (09:19→20:04)
[2021-02-21] MEDS: Saccharomyces boulardii 250 MG CAP PO SCH (09:19)
[2021-02-21] MEDS: Ferrous Sulfate 325 MG TAB PO SCH (09:19)
[2021-02-21] MEDS: Amlodipine 10 MG TAB PO SCH (09:19)
[2021-02-21] MEDS: Famotidine 20 MG TAB PO SCH ×2 (09:19→20:04)
[2021-02-21] MEDS: Stress 600 With Zinc 1 TAB PO SCH (09:20)
[2021-02-21] MEDS: Vancomycin 1 GM in Premix Bag 1 BAG IVPB SCH ×2 (11:24→22:20)
[2021-02-21] MEDS: cefTRIAXone\\ROCEPHIN 2 GM in Sodium Chloride 0.9% 100 ML IVPB SCH (16:20)
[2021-02-21] MEDS: Communication Order-Pharmacy FS SCH (19:55)
[2021-02-21] MEDS: Tamsulosin HCl 0.4 MG CAP PO SCH (20:04)
[2021-02-21] MEDS: Fluconazole In NaCl,Iso-Osm 100 MG in Admixture Fee 1 EACH IVPB SCH (20:51)
[2021-02-22 04:12] LABS: Hemoglobin 9.3 g/dL (14.0-18.0); Mean Corpuscular HGB CONC 32.9 g/dL (32.0-36.0); Mean Corpuscular Hemoglobin 29.3 pg (27.0-31.0); Mean Corpuscular Volume 89.2 fL (78.0-98.0); Platelet Count 396 thou/uL (130-400); RBC Distribution Width 18.2 % (11.5-14.5); Red Blood Cell (RBC) Count 3.18 mill/uL (4.70-6.10); White Blood Cell (WBC) Count 22.4 thou/uL (4.8-10.8)
[2021-02-22] MEDS: Sodium Chloride 0.9% 1,000 ML IV SCH ×2 (04:19→07:20)
[2021-02-22 04:29] LABS: ALT (SGPT) 63 U/L (8-55); AST (SGOT) 140 U/L (5-34); Albumin 2.1 g/dL (3.4-4.8); Alkaline Phosphatase 572 U/L (40-110); Anion Gap 14 mmol/L (10-20); BUN (Urea Nitrogen) 26 mg/dL (8.4-25.7); Bilirubin, Total 0.5 mg/dL (0.2-1.2); Calc. Creatinine Clearance 91 mL/min (70-130); Calcium 8.6 mg/dL (7.8-10.44); Carbon Dioxide 15 mmol/L (23-31); Chloride 117 mmol/L (98-107); Globulin 2.5 g/dL (2.4-3.5); Glucose 94 mg/dL (83-110); Potassium 3.3 mmol/L (3.5-5.1); Protein, Total 4.6 g/dL (5.8-8.1); Sodium 143 mmol/L (136-145)
[2021-02-22 04:36] LABS: Lymphocytes 2 % (21-51); MDiff Complete? YES; Monocytes 6 % (0-10); Neutrophil 92 % (42-75); Platelet Morphology Comment Appears Adequate
[2021-02-22] MEDS ORDERED: Magnesium 2 GM/50 ML 2 GM in Premix Bag 1 BAG IVPB SCH (06:15)
[2021-02-22] MEDS ORDERED: Potassium Chloride 20 MEQ TAB PO SCH (06:30)
[2021-02-22 08:20] VITALS: BP 145/83; TEMP 97.7
[2021-02-22] MEDS: Amlodipine 10 MG TAB PO SCH (08:35)
[2021-02-22] MEDS: Saccharomyces boulardii 250 MG CAP PO SCH (08:35)
[2021-02-22] MEDS: Oxybutynin 5 MG TAB PO SCH (08:35)
[2021-02-22] MEDS: Famotidine 20 MG TAB PO SCH (08:35)
[2021-02-22] MEDS: Ferrous Sulfate 325 MG TAB PO SCH (08:35)
[2021-02-22] MEDS: Stress 600 With Zinc 1 TAB PO SCH (08:36)
[2021-02-22] MEDS: Vancomycin 1 GM in Premix Bag 1 BAG IVPB SCH (09:28)
== END 2021-02-22 15:15 | disposition hospice, home (50) | DRG 871 ==
LOC: ERS 10:59 → ONC 15:17
PROVIDERS: ADMIT Family Medicine; ATTEND Emergency Medicine
PROC: 8E0ZXY6 Isolation (ICD-10-PCS; principal; 2021-02-19)
DX: A41.9 Sepsis, unspecified organism (principal); G92 Toxic encephalopathy; N30.01 Acute cystitis with hematuria; N17.9 Acute kidney failure, unspecified; C79.9 Secondary malignant neoplasm of unspecified site; C61 Malignant neoplasm of prostate; Z66 Do not resuscitate; Z51.5 Encounter for palliative care; D63.8 Anemia in other chronic diseases classified elsewhere; R65.20 Severe sepsis without septic shock; D50.9 Iron deficiency anemia, unspecified; R74.01 Elevation of levels of liver transaminase levels; I25.10 Atherosclerotic heart disease of native coronary artery without angina pectoris; E78.5 Hyperlipidemia, unspecified; R33.9 Retention of urine, unspecified; F32.9 Major depressive disorder, single episode, unspecified; E87.6 Hypokalemia; N41.9 Inflammatory disease of prostate, unspecified; Z87.440 Personal history of urinary (tract) infections; Z95.5 Presence of coronary angioplasty implant and graft; Z88.0 Allergy status to penicillin; Z93.6 Other artificial openings of urinary tract status; Z87.891 Personal history of nicotine dependence
CPT/HCPCS: 36415; 51701; 70450; 71045; 74176; 76770; 80053; 80202; 81001; 81003; 81015; 82248; 82274; 83605; 83615; 83735; 83880; 84100; 84443; 84484; 84550; 85025; 87086; 87324; 87449; 87493; 96365; 96367; J0456; J0696; J1450; J1642; J3370; J3475; J3490